=== PATIENT | male | born 1935 | race Caucasian/White ===

== ENCOUNTER 2021-04-17 13:11 | Inpatient (IN) | payer MEDICARE, MEDICAID ==
[~2021-04-17] VITALS: Ht 175.3 cm; Wt 100.3 kg
[2021-04-17] MEDS ORDERED: ASPI-630 PO (13:36)
[2021-04-17] MEDS ORDERED: LEVO75TA5 PO (13:36)
[2021-04-17] MEDS ORDERED: PANT40TA6 PO (13:36)
[2021-04-17] MEDS ORDERED: dexamethasone EACHEYE (13:36)
[2021-04-17] MEDS ORDERED: DONE10TA7 PO (13:36)
[2021-04-17] MEDS ORDERED: SPIR25TA5 PO (13:36)
[2021-04-17] MEDS ORDERED: MULT-245 PO (13:36)
[2021-04-17] MEDS ORDERED: ALLO100T PO (13:36)
[2021-04-17] MEDS ORDERED: MIRA25TA PO (13:36)
[2021-04-17] MEDS ORDERED: FINA5TAB4 PO (13:36)
[2021-04-17] MEDS ORDERED: CYAN500T17 PO (13:36)
[2021-04-17] MEDS ORDERED: ATORVASTATIN CA80 MG PO (13:36)
[2021-04-17] MEDS ORDERED: OMEG10005 PO (13:36)
[2021-04-17] MEDS ORDERED: MEMA10TA PO (13:36)
[2021-04-17] MEDS ORDERED: BENA40TA74 PO (13:36)
[2021-04-17] MEDS ORDERED: GABA800T5 PO (13:36)
[2021-04-17] MEDS ORDERED: TORS20TA2 PO (13:36)
[2021-04-17] MEDS ORDERED: QUET25TA5 PO (13:36)
[2021-04-17] MEDS ORDERED: METHYL SALICYLATE/MENTHOL TOPICAL OINTMENT 57GM TUBE. TP PRN (14:00)
[2021-04-17 14:13] VITALS: BP 160/80
[2021-04-17] MEDS ORDERED: WARF-31 PO (14:28)
[2021-04-17] MEDS ORDERED: WARF7.5T45 PO ×2 (14:28→14:34)
[2021-04-17] MEDS: GABAPENTIN 400 MG CAPSULE. PO SCH ×2 (14:30→20:28)
[2021-04-17 15:28] VITALS: BP 128/65
[2021-04-17 20:17] LABS: BASO # 0.1 x10^3/uL (0.0-0.2); BASO % 1 % (0-3); EOS # 0.3 x10^3/uL (0.0-0.7); EOS % 6 % (0-3); HEMATOCRIT 39.4 % (39.0-53.0); LYMPH # 1.6 x10^3/uL (1.0-4.8); LYMPH % 28 % (24-48); MEAN CORPUSCULAR HEMOGLOBIN 31 pg (25-35); MEAN CORPUSCULAR HGB CONC 33 g/dL (31-37); MEAN CORPUSCULAR VOLUME 93 fL (79-100); MONO # 0.6 x10^3/uL (0.0-1.1); MONO % 10 % (0-9); NEUT # 3.3 x10^3uL (1.8-7.7); NEUT % 56 % (31-73); PLATELET COUNT 168 x10^3/uL (140-400); RED BLOOD COUNT 4.25 x10^6/uL (4.30-5.70); RED CELL DISTRIBUTION WIDTH 16.7 % (11.5-14.5); WHITE BLOOD COUNT 5.9 x10^3/uL (4.0-11.0)
[2021-04-17] MEDS: QUEtiapine 25 MG TABLET. PO SCH (20:28)
[2021-04-17] MEDS: DONEPEZIL HCL 10 MG TABLET PO SCH (20:28)
[2021-04-17] MEDS: MEMANTINE 10 MG TABLET. PO SCH (20:28)
[2021-04-17] MEDS: ALLOPURINOL 100 MG TABLET. PO SCH (20:28)
[2021-04-17] MEDS: ATORVASTATIN CALCIUM 20 MG TABLET PO SCH (20:29)
[2021-04-17] MEDS: DEXAMETHASONE 0.1% OPHTH SOLUTION 5ML BOTTLE. OU SCH (20:29)
[2021-04-17 20:32] LABS: ALBUMIN 3.4 g/dL (3.4-5.0); ALBUMIN/GLOBULIN RATIO 0.9 (1.0-1.7); CALCIUM 8.7 mg/dL (8.5-10.1); CREATININE 1.5 mg/dL (0.7-1.3); GFR 44.6; MAGNESIUM 2.6 mg/dL (1.8-2.4); TOTAL BILIRUBIN 0.6 mg/dL (0.2-1.0); TOTAL PROTEIN 7.3 g/dL (6.4-8.2)
--- NOTE | 2021-04-17 21:08 | PDOC ---
Exam Note: Brennen Note: Please also refer to the separate dictated note~for this date of service dictated separately.~Patient seen individually. Discussed the patient with Nursing staff reviewed the chart.~Reviewed interim history and current functioning. Reviewed vital signs,~Labs/ Radiology~and current medications noted below. Continue current treatment with the changes noted in the dictated addendum note Assessment: Vital Signs/I&O: Vital Signs Date Time Temp Pulse Resp B/P (MAP) Pulse Ox O2 Delivery O2 Flow Rate FiO2 04/17/21 15:28 98.5 67 20 128/65 (86) 92 Labs: Laboratory Tests Test 04/17/21 20:10 White Blood Count 5.9 x10^3/uL (4.0-11.0) Red Blood Count 4.25 x10^6/uL (4.30-5.70) L Hemoglobin 13.0 g/dL (13.0-17.5) Hematocrit 39.4 % (39.0-53.0) Mean Corpuscular Volume 93 fL (79-100) Mean Corpuscular Hemoglobin 31 pg (25-35) Mean Corpuscular Hemoglobin Concent 33 g/dL (31-37) Red Cell Distribution Width 16.7 % (11.5-14.5) H Platelet Count 168 x10^3/uL (140-400) Neutrophils (%) (Auto) 56 % (31-73) Lymphocytes (%) (Auto) 28 % (24-48) Monocytes (%) (Auto) 10 % (0-9) H Eosinophils (%) (Auto) 6 % (0-3) H Basophils (%) (Auto) 1 % (0-3) Neutrophils # (Auto) 3.3 x10^3uL (1.8-7.7) Lymphocytes # (Auto) 1.6 x10^3/uL (1.0-4.8) Monocytes # (Auto) 0.6 x10^3/uL (0.0-1.1) Eosinophils # (Auto) 0.3 x10^3/uL (0.0-0.7) Basophils # (Auto) 0.1 x10^3/uL (0.0-0.2) Activated Partial Thromboplast Time 29 SEC (23-33) D-Dimer (Violeta) 0.33 mg/L (0.00-0.50) Sodium Level 142 mmol/L (136-145) Potassium Level 4.0 mmol/L (3.5-5.1) Chloride Level 107 mmol/L (98-107) Carbon Dioxide Level 27 mmol/L (21-32) Anion Gap 8 (6-14) Blood Urea Nitrogen 31 mg/dL (8-26) H Creatinine 1.5 mg/dL (0.7-1.3) H Estimated GFR (Cockcroft-Gault) 44.6 BUN/Creatinine Ratio 21 (6-20) H Glucose Level 150 mg/dL (70-99) H Calcium Level 8.7 mg/dL (8.5-10.1) Magnesium Level 2.6 mg/dL (1.8-2.4) H Total Bilirubin 0.6 mg/dL (0.2-1.0) Aspartate Amino Transferase (AST) 21 U/L (15-37) Alanine Aminotransferase (ALT) 22 U/L (16-63) Alkaline Phosphatase 106 U/L (46-116) Total Protein 7.3 g/dL (6.4-8.2) Albumin 3.4 g/dL (3.4-5.0) Albumin/Globulin Ratio 0.9 (1.0-1.7) L Current Medications: Meds: Current Medications Medications (Trade) Dose Ordered Sig/Mary Route PRN Reason Start Time Stop Time Status Last Admin Dose Admin Allopurinol (Zyloprim) 100 mg BID PO 04/17/21 21:00 04/17/21 20:28 Donepezil HCl (Aricept) 10 mg HS PO 04/17/21 21:00 04/17/21 20:28 Memantine (Namenda) 10 mg BID PO 04/17/21 21:00 04/17/21 20:28 Quetiapine Fumarate (SEROquel) 25 mg BID PO 04/17/21 21:00 04/17/21 20:28 Atorvastatin Calcium (Lipitor) 80 mg QHS PO 04/17/21 21:00 04/17/21 20:29 Gabapentin (Neurontin) 400 mg TID PO 04/17/21 14:30 04/17/21 20:28 I have reviewed the current psychotropics carefully including drug interactions. Risk benefit ratio favors no change other than as noted in my dictated progress note. JAE HERNANDEZ MD Apr 17, 2021 21:08
[2021-04-17 22:03] LABS: BILIRUBIN,URINE NEG (NEG); CLARITY,URINE CLEAR; COLOR,URINE YELLOW; GLUCOSE,URINE NEG (NEG); NITRITE,URINE NEG (NEG); RBC,URINE 0 /HPF (0-2); UROBILINOGEN,URINE 0.2 mg/dL (0.2 mg/dL)
[2021-04-17 22:04] LABS: BACTERIA,URINE 0 /HPF (0-FEW); SQUAMOUS EPITHELIAL CELL,UR OCC /LPF; WBC,URINE 0 /HPF (0-4)
--- NOTE | 2021-04-17 22:08 | HP ---
DATE OF SERVICE: 04/17/2021 ADMIT DATE: 04/17/2021 PSYCHIATRIC ADMISSION HISTORY AND EVALUATION The patient was seen in the evening of 04/17 for this evaluation. IDENTIFYING DATA: The patient is an 85-year-old male referred to us from [facility] Room where he presented from home. The patient has been getting increasingly confused, spitting on the floor, and at other people. He was combative with cares and had not slept in many days. He was disruptive, difficult to redirect, agitated, had failed outpatient psychiatric interventions resulting in this referral. CHIEF COMPLAINT: "I have been here many days". In fact, I saw the patient shortly after he was admitted. HISTORY OF PRESENT ILLNESS: The patient has a history of dementia, Alzheimer's, vascular type. He has been residing at home with family, recently getting more confused, paranoid, psychotic, and agitated. He has had sleep and appetite changes and has been progressive increasingly combative. No active suicidal or homicidal ideation. PAST PSYCHIATRIC HISTORY: As above. MEDICAL HISTORY: GERD, hypertension, urinary retention, hard of hearing, hypothyroidism, gout. ACCU-CHEKS: None. CODE STATUS: DNR. ALLERGIES: NIASPAN. DIET: Cardiac, takes medications whole. Ambulates in wheelchair. CURRENT PSYCHOTROPICS: Seroquel 25 mg b.i.d., Aricept 10 mg at bedtime, gabapentin 400 mg t.i.d., Namenda 10 mg b.i.d., Zyprexa p.r.n. FAMILY HISTORY: Noncontributory. SOCIAL HISTORY: The patient lives at home with family. No alcohol, drug abuse, physical, sexual, or elder abuse history is noted. He is not known to be a perpetrator. 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 REVIEW OF SYSTEMS: Hard of hearing, impaired ambulation in wheelchair. No CV, , pulmonary, eye system symptoms on review. MENTAL STATUS EXAM: The patient is oriented to himself. Insight, judgment, recent, remote memory, attention, concentration, fund of knowledge poor consistent with his diagnosis. IMPRESSION: Major neurocognitive disorder, Alzheimer, vascular with delusion, depression, behavioral disturbance, anxiety disorder, unspecified; impulse control disorder, unspecified. Rest unchanged from above. PLAN: Admit to Geropsychiatry unit at [facility]. I will see the patient daily individually from a psychiatric standpoint. Medical followup with Dr. Olson/Dr. Dotson. Continue the patient on his current psychotropics. Observe baseline. Adjust psychotropics as clinically indicated and make a determination if he will need a higher level of care rather than returning home. ESTIMATED LENGTH OF STAY: 10-12 days. DISPOSITION PLANS: As noted above, either home or higher level of care. ANGLE DR: Melinda TID: [id number]
[2021-04-18] MEDS: LEVOTHYROXINE 75 MCG TABLET PO SCH (05:06)
--- NOTE | 2021-04-18 05:52 | EKG ---
[address] [address] Test Date: 2021-04-18 Test Time: 05:35:45 Pat Name: DEYVI BERGER Department: Room: [address] [place] [address] Gender: M Hop Grower: : 1935 Requested By: JAE HERNANDEZ Order Number: [id number] Reading MD: Nilesh Arevalo MD Measurements Intervals [place] Rate: 50 P: 22 CA: 340 QRS: -9 QRSD: 104 T: 112 QT: 438 QTc: 402 Interpretive Statements SINUS RHYTHM PROLONGED CA INTERVAL CONSIDER SINOATRIAL EXIT BLOCK VERSUS MOBITZ TYPE 1 Electronically Signed On 04-27-2021 15:52:05 CONCRETE PRECAST MOULDER by Nilesh Arevalo MD
[2021-04-18 06:03] VITALS: BP 148/84
[2021-04-18] MEDS: GABAPENTIN 400 MG CAPSULE. PO SCH ×3 (08:36→20:12)
[2021-04-18] MEDS: MEMANTINE 10 MG TABLET. PO SCH ×2 (08:36→20:13)
[2021-04-18] MEDS: QUEtiapine 25 MG TABLET. PO SCH ×2 (08:36→20:12)
[2021-04-18] MEDS: ALLOPURINOL 100 MG TABLET. PO SCH ×2 (08:36→20:12)
[2021-04-18] MEDS: TORSEMIDE 20 MG TABLET. PO SCH (08:40)
[2021-04-18] MEDS: PANTOPRAZOLE 40 MG TABLET. PO SCH (08:40)
[2021-04-18] MEDS: SPIRONOLACTONE 25 MG TABLET PO SCH (08:40)
[2021-04-18] MEDS: OMEGA-3 FATTY ACIDS/FISH OIL 1,000 MG CAPSULE. PO SCH (08:40)
[2021-04-18] MEDS: MULTIVITAMIN with MINERAL TABLET. PO SCH (08:41)
[2021-04-18] MEDS: LISINOPRIL 20 MG TABLET PO SCH (08:41)
[2021-04-18] MEDS: OLANZapine 2.5 MG TABLET PO PRN ×2 (08:41→12:27)
[2021-04-18] MEDS: ASPIRIN CHEWABLE 81 MG TABLET. PO SCH (08:41)
[2021-04-18] MEDS: FINASTERIDE 5 MG TABLET. PO SCH (08:41)
[2021-04-18] MEDS: MIRABEGRON 25 MG TAB.ER.24H PO SCH (08:45)
[2021-04-18] MEDS: DEXAMETHASONE 0.1% OPHTH SOLUTION 5ML BOTTLE. OU SCH ×2 (08:45→20:11)
[2021-04-18] MEDS ORDERED: FLU VACC QUAD 21-22 (6MOS+) PF 0.5 ML SYRINGE. VAX IM ONE (09:00)
[2021-04-18] MEDS: QUEtiapine 25 MG TABLET. PO PRN ×2 (10:49→17:30)
[2021-04-18 11:36] LABS: THYROID STIM HORMONE (TSH) 2.763 uIU/mL (0.358-3.740)
[2021-04-18] MEDS: CYANOCOBALAMIN (VITAMIN B-12) 1,000 MCG TABLET. PO SCH (12:00)
[2021-04-18 15:13] VITALS: BP 114/68
[2021-04-18] MEDS ORDERED: WARFARIN 7.5 MG TABLET. PO SCH (16:00)
[2021-04-18] MEDS: DONEPEZIL HCL 10 MG TABLET PO SCH (20:12)
[2021-04-18] MEDS: ATORVASTATIN CALCIUM 20 MG TABLET PO SCH (20:13)
--- NOTE | 2021-04-18 23:50 | CONS ---
DATE OF CONSULTATION: 04/18/2021 REASON FOR CONSULTATION: Medical management. HISTORY OF PRESENT ILLNESS: The patient is an 85-year-old male patient who apparently lives at home and was evaluated at [facility] and apparently he was admitted to this facility as he has been spitting on the floor and at people, combative with cares, has not slept in days; all this in a background of dementia with behavioral disorder. PAST MEDICAL HISTORY: Significant for gastroesophageal reflux disease, hypertension, urinary retention, gout, coronary artery disease x4, hypothyroidism. PAST SURGICAL HISTORY: Significant for cholecystectomy and appendectomy. ALLERGIES: HE IS ALLERGIC TO NIACIN. MEDICATIONS: He is currently on the following medication: He is on Aricept 10 mg at bedtime, Coumadin 5 mg Tuesday, Tuesday, Tuesday and Coumadin 7.5 mg on Tuesday, Tuesday, as well as Tuesday, omega 3 fatty acid 1000 mg once a day, benazepril 40 mg daily, spironolactone 25 mg every 48 hours, aspirin 81 mg once a day, gabapentin 400 mg 3 times a day, quetiapine fumarate 25 mg twice a day, Namenda 10 mg twice a day, torsemide 40 mg daily, Protonix 40 mg daily, levothyroxine sodium 75 mcg once a day, Myrbetriq 25 mg daily, vitamin B12 1000 mcg daily, multivitamin 1 tablet once a day, finasteride 5 mg daily, allopurinol 100 mg twice a day, atorvastatin calcium 80 mg at bedtime, and dexamethasone eyedrops 1 drop to both eyes twice a day. FAMILY HISTORY: Noncontributory. SOCIAL HISTORY: He is . Apparently lives with his . He does not smoke, drink alcohol, or use recreational drugs. 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 REVIEW OF SYSTEMS: The patient apparently is hard of hearing, has impaired ambulation, is mostly wheelchair bound. PHYSICAL EXAMINATION: GENERAL: When I saw him this afternoon, he was sitting comfortably in his wheelchair in no apparent respiratory distress. No pallor, jaundice, cyanosis or thyromegaly. No jugular venous distention. No limb edema. VITAL SIGNS: Heart rate was 66, blood pressure is 114/68, temperature 97.4, respiratory rate 20, and oxygen saturation was 94%. HEAD, EYES, EARS, NOSE, AND THROAT: Normocephalic, atraumatic. NECK: Supple. HEART: Normal first and second heart sounds. No gallop, rub or murmur. CHEST: Clear to auscultation, no crepitation or rhonchi. ABDOMEN: Distended. Soft, nontender. NEUROLOGIC: He is very hard of hearing, otherwise all other cranial nerves intact. He moves upper extremities much greater than lower extremities, mostly wheelchair bound. He apparently was able to walk with a walker with standby assist. LABORATORY DATA: On admission showed a white cell count 5900, hemoglobin 13, hematocrit 39, MCV 93, and platelet count of 168,000. His prothrombin time was 15. INR 1.5. Serum sodium was 142, potassium 4, chloride 107, bicarbonate 27, anion gap of 8, BUN 31, creatinine 1.5. Estimated GFR was 44 mL per minute. His glucose 150, calcium was 8.7, magnesium was 2.6. Total bilirubin, AST, ALT, alkaline phosphatase were normal. Total protein 7.3, albumin was 3.4. His serum iron was 88. TIBC was 316 and iron saturation was 28. His serum triglycerides were 268. Total cholesterol 153, LDL was 64, VLDL was 53, HDL cholesterol was 36 and the ratio was 4. TSH was 2.76. His D-dimer was 0.33 and aPTT was 29. Urinalysis essentially unremarkable. ASSESSMENT AND PLAN: In summary, this is an 85-year-old male patient who was referred from [facility] where he presented from home. The patient has been getting increasingly confused, spitting on the floor and on other peoples. He is combative with cares and has not slept in many days. He was disruptive and difficult to redirect, agitated, had failed outpatient psychiatric intervention. Therefore, he was [facility] for inpatient psychiatric stabilization. Medically, he has multiple medical problems including hypertension, urinary retention and probably benign prostatic hypertrophy, sensorineural deafness, hypothyroidism, and gout. He is on Coumadin, however, it was not clear to me as to why he is on Coumadin, whether he has a DVT of atrial fibrillation. In any case, he was in a very difficult Coumadin regimen that need to be simplified and waiting the pharmacy adjusting his dose; however, medically generally, he seemed to be stable. His vital signs are stable and all his lab works are within acceptable range. My plan is to follow with his lab works that are still pending at the time of this dictation and make any necessary recommendation. Thank you, Dr. Cortes, for allowing me to participate in the care of this patient. MAXIMILIANO/KAYLEY DR: Jomar TID: [id number]
[2021-04-19] MEDS: OLANZapine 2.5 MG TABLET PO PRN ×3 (01:33→12:15)
[2021-04-19] MEDS: QUEtiapine 25 MG TABLET. PO PRN (01:33)
[2021-04-19] MEDS: LEVOTHYROXINE 75 MCG TABLET PO SCH (05:07)
[2021-04-19 05:30] VITALS: BP 114/66
[2021-04-19 05:43] LABS: THYROXINE 5.9 ug/dL (4.5-12.0)
[2021-04-19] MEDS: MAG HYDROX/AL HYDROX/SIMETH 30 ML ORAL.SUSP PO PRN (06:45)
[2021-04-19 07:09] LABS: HEMOGLOBIN A1C 6.5 % (4.8-5.6)
[2021-04-19] MEDS: OMEGA-3 FATTY ACIDS/FISH OIL 1,000 MG CAPSULE. PO SCH (08:54)
[2021-04-19] MEDS: DEXAMETHASONE 0.1% OPHTH SOLUTION 5ML BOTTLE. OU SCH ×2 (08:54→19:47)
[2021-04-19] MEDS: MIRABEGRON 25 MG TAB.ER.24H PO SCH (08:57)
[2021-04-19] MEDS: ALLOPURINOL 100 MG TABLET. PO SCH ×2 (08:57→19:48)
[2021-04-19] MEDS: PANTOPRAZOLE 40 MG TABLET. PO SCH (08:57)
[2021-04-19] MEDS: MULTIVITAMIN with MINERAL TABLET. PO SCH (08:57)
[2021-04-19] MEDS: FINASTERIDE 5 MG TABLET. PO SCH (08:58)
[2021-04-19] MEDS: LISINOPRIL 20 MG TABLET PO SCH (08:58)
[2021-04-19] MEDS: TORSEMIDE 20 MG TABLET. PO SCH (08:59)
[2021-04-19] MEDS: ASPIRIN CHEWABLE 81 MG TABLET. PO SCH (08:59)
[2021-04-19] MEDS: QUEtiapine 25 MG TABLET. PO SCH ×3 (08:59→19:50)
[2021-04-19] MEDS: MEMANTINE 10 MG TABLET. PO SCH ×2 (08:59→19:48)
[2021-04-19] MEDS: GABAPENTIN 400 MG CAPSULE. PO SCH ×3 (08:59→19:50)
[2021-04-19] MEDS: CYANOCOBALAMIN (VITAMIN B-12) 1,000 MCG TABLET. PO SCH (12:15)
--- NOTE | 2021-04-19 12:44 | PN ---
DATE: 04/18/2021 SUBJECTIVE: The patient was seen today, met with the staff. Chart was reviewed and also covering for Dr. Cortes. The patient since admission has been having problems with his cognition, confused, fluctuating sensorium at times. The patient recently had a fall, apparently has a bruise on his left side of the face. The patient is struggling to provide much information. He is able to hold a conversation, but could not answer most of the questions, admits he has been having problems with memory and having difficulty with recall, but he remembers some of the things from the past. According to the family, he was fairly high functioning until recently. The patient's CT scan of head reviewed. We will request for Neurology consult. OBSERVATION: Vital signs stable. The patient's appetite improved and the patient is currently on wheelchair, unsteady on his gait. LABORATORY DATA: The patient's lab reviewed. The patient's hematology was within normal range. The patient's BUN 31, creatinine was 1.5. BUN and creatinine ratio 21, triglycerides 268, non HDL 117, HDL cholesterol 36. The patient's urinalysis was negative. CURRENT MEDICATIONS: Include Seroquel 25 mg q. 6 hours p.r.n. and 25 mg twice a day and Namenda 10 mg b.i.d., Aricept 10 mg at night, gabapentin 400 mg t.i.d. PLAN: The patient will be evaluated because of cognitive deficits, recent onset. The patient will continue on his current medication. LENGTH OF STAY: Seven to ten days. KAYLEEN/NEETU/JARRELL DR: Evelin TID: [id number] MTDD
--- NOTE | 2021-04-19 14:23 | RAD ---
EXAM: Chest, single view. HISTORY: Cough. COMPARISON: None. FINDINGS: A frontal view of the chest is obtained. There is bilateral lower lobe interstitial infiltr ate. There is no consolidation. There are suspected small pleural effusions. There is no pneumothorax . There is a prominent cardiac silhouette. IMPRESSION: Suspected bilateral lower lobe interstitial infiltrate with small pleural effusions. Electronically signed by: Araceli Garces MD (04/19/2021 2:20 PM) [id number]
[2021-04-19 15:39] VITALS: BP 108/61
[2021-04-19] MEDS: WARFARIN 7.5 MG TABLET. PO SCH (16:03)
[2021-04-19] MEDS: ATORVASTATIN CALCIUM 20 MG TABLET PO SCH (19:48)
[2021-04-19] MEDS: DONEPEZIL HCL 10 MG TABLET PO SCH (19:48)
--- NOTE | 2021-04-19 21:25 | PN ---
DATE: 04/19/2021 SUBJECTIVE: The patient was seen today, met with the staff. Chart reviewed. Also, covering for Dr. Cortes. Staff reports increased confusion, mood swings, increased agitation, verbally abusive towards staff, and exhibiting poor impulse control, and low frustration tolerance. VITAL SIGNS: Temperature 97.3, blood pressure 114/66, pulse 77, respirations 20, O2 sat 92%. GENERAL: Slept about 4 hours last night. The patient's appetite decreased. LABORATORY DATA: The patient's lab reviewed. CURRENT MEDICATIONS: The patient's current medications include Seroquel 25 mg 4 times a day. Apparently, it was increased from twice a day because of increased behavior problems, Seroquel 25 mg q. 6 hours p.r.n., Namenda 10 mg twice a day, Aricept 10 mg at night, gabapentin 400 mg 3 times a day. He is also on olanzapine 2.5 mg q. 2 hours p.r.n. ASSESSMENT: Major neurocognitive disorder, most likely Alzheimer's versus vascular with behavior problems. PLAN: Continue with the current treatment plan. LENGTH OF STAY: 7-[address]: Evelin TID: [id number]
[2021-04-20] MEDS: LEVOTHYROXINE 75 MCG TABLET PO SCH (04:50)
[2021-04-20 05:52] VITALS: BP 98/61
[2021-04-20] MEDS: LISINOPRIL 20 MG TABLET PO SCH (09:00)
[2021-04-20] MEDS: FINASTERIDE 5 MG TABLET. PO SCH (09:08)
[2021-04-20] MEDS: QUEtiapine 25 MG TABLET. PO SCH ×4 (09:08→20:09)
[2021-04-20] MEDS: MEMANTINE 10 MG TABLET. PO SCH ×2 (09:09→20:09)
[2021-04-20] MEDS: OMEGA-3 FATTY ACIDS/FISH OIL 1,000 MG CAPSULE. PO SCH (09:09)
[2021-04-20] MEDS: GABAPENTIN 400 MG CAPSULE. PO SCH ×3 (09:09→20:09)
[2021-04-20] MEDS: SPIRONOLACTONE 25 MG TABLET PO SCH (09:09)
[2021-04-20] MEDS: PANTOPRAZOLE 40 MG TABLET. PO SCH (09:09)
[2021-04-20] MEDS: MULTIVITAMIN with MINERAL TABLET. PO SCH (09:09)
[2021-04-20] MEDS: ASPIRIN CHEWABLE 81 MG TABLET. PO SCH (09:09)
[2021-04-20] MEDS: ALLOPURINOL 100 MG TABLET. PO SCH ×2 (09:09→20:09)
[2021-04-20] MEDS: TORSEMIDE 20 MG TABLET. PO SCH (09:09)
[2021-04-20] MEDS: DEXAMETHASONE 0.1% OPHTH SOLUTION 5ML BOTTLE. OU SCH ×2 (09:10→20:10)
[2021-04-20] MEDS: MIRABEGRON 25 MG TAB.ER.24H PO SCH (09:10)
[2021-04-20] MEDS: CYANOCOBALAMIN (VITAMIN B-12) 1,000 MCG TABLET. PO SCH (12:51)
[2021-04-20] MEDS: OLANZapine 2.5 MG TABLET PO PRN (14:25)
[2021-04-20 15:36] VITALS: BP 104/78
[2021-04-20] MEDS ORDERED: WARFARIN 5 MG TABLET. PO SCH (16:00)
[2021-04-20] MEDS: ATORVASTATIN CALCIUM 20 MG TABLET PO SCH (20:08)
[2021-04-20] MEDS: DONEPEZIL HCL 10 MG TABLET PO SCH (20:08)
--- NOTE | 2021-04-21 01:01 | PN ---
DATE: 04/20/2021 SUBJECTIVE: The patient was seen today, met with the staff, chart reviewed. The patient continues to show fluctuating behaviors. At times, he is very pleasant and able to interact with the staff. The patient, because of his cognitive deficits, gets confused and having problems with orienting himself to surroundings and has episodes of confusion, agitation, and angry outbursts. The patient also had a chest x-ray, which was unremarkable. CURRENT MEDICATIONS: The patient's medications reviewed. Currently on Seroquel 25 mg 4 times a day. Also, Seroquel 25 mg q. 6 hours p.r.n., Namenda 10 mg twice a day, Aricept 10 mg at night, gabapentin 400 mg 3 times a day. He is also on olanzapine 2.5 mg q. 2 hours p.r.n. LABORATORY DATA: The patient's lab reviewed. ASSESSMENT: Major neurocognitive disorder, most likely Alzheimer's versus vascular with behavior problems. PLAN: To continue with the treatment. LENGTH OF STAY: Seven to ten days. VANCE DR: Evelin TID: [id number]
[2021-04-21] MEDS: LEVOTHYROXINE 75 MCG TABLET PO SCH (05:37)
[2021-04-21 05:40] VITALS: BP 114/65
[2021-04-21] MEDS: OLANZapine 2.5 MG TABLET PO PRN ×4 (06:10→20:18)
[2021-04-21] MEDS: MAG HYDROX/AL HYDROX/SIMETH 30 ML ORAL.SUSP PO PRN (06:10)
[2021-04-21] MEDS: MIRABEGRON 25 MG TAB.ER.24H PO SCH (07:42)
[2021-04-21] MEDS: DEXAMETHASONE 0.1% OPHTH SOLUTION 5ML BOTTLE. OU SCH ×2 (07:43→20:15)
[2021-04-21] MEDS: TORSEMIDE 20 MG TABLET. PO SCH (07:43)
[2021-04-21] MEDS: FINASTERIDE 5 MG TABLET. PO SCH (07:43)
[2021-04-21] MEDS: QUEtiapine 25 MG TABLET. PO SCH ×4 (07:43→20:16)
[2021-04-21] MEDS: MEMANTINE 10 MG TABLET. PO SCH ×2 (07:43→20:16)
[2021-04-21] MEDS: OMEGA-3 FATTY ACIDS/FISH OIL 1,000 MG CAPSULE. PO SCH (07:43)
[2021-04-21] MEDS: ALLOPURINOL 100 MG TABLET. PO SCH ×2 (07:43→20:16)
[2021-04-21] MEDS: GABAPENTIN 400 MG CAPSULE. PO SCH ×3 (07:44→20:17)
[2021-04-21] MEDS: ASPIRIN CHEWABLE 81 MG TABLET. PO SCH (07:44)
[2021-04-21] MEDS: LISINOPRIL 20 MG TABLET PO SCH (07:44)
[2021-04-21] MEDS: MULTIVITAMIN with MINERAL TABLET. PO SCH (07:44)
[2021-04-21] MEDS: PANTOPRAZOLE 40 MG TABLET. PO SCH (07:44)
[2021-04-21] MEDS: CYANOCOBALAMIN (VITAMIN B-12) 1,000 MCG TABLET. PO SCH (11:59)
[2021-04-21 15:09] VITALS: BP 104/69
[2021-04-21] MEDS: WARFARIN 7.5 MG TABLET. PO SCH (16:42)
[2021-04-21] MEDS ORDERED: DEXTROSE 50% 25 GM / 50ML DISP.SYRIN. IV PRN (18:30)
[2021-04-21] MEDS: ATORVASTATIN CALCIUM 20 MG TABLET PO SCH (20:16)
[2021-04-21] MEDS: DONEPEZIL HCL 10 MG TABLET PO SCH (20:16)
[2021-04-21] MEDS: QUEtiapine 50 MG TABLET. PO SCH (20:18)
[2021-04-21] MEDS: traZODone 50 MG TABLET. PO PRN (20:18)
[2021-04-21] MEDS: DIVALPROEX 125 MG CAP.SPRINK PO SCH (20:18)
[2021-04-22] MEDS: LEVOTHYROXINE 75 MCG TABLET PO SCH (05:01)
[2021-04-22 06:06] VITALS: BP 99/62
[2021-04-22] MEDS: LISINOPRIL 20 MG TABLET PO SCH (08:27)
[2021-04-22] MEDS: ALLOPURINOL 100 MG TABLET. PO SCH ×2 (08:27→20:09)
[2021-04-22] MEDS: ASPIRIN CHEWABLE 81 MG TABLET. PO SCH (08:27)
[2021-04-22] MEDS: TORSEMIDE 20 MG TABLET. PO SCH (08:28)
[2021-04-22] MEDS: SPIRONOLACTONE 25 MG TABLET PO SCH (08:28)
[2021-04-22] MEDS: GABAPENTIN 400 MG CAPSULE. PO SCH ×3 (08:28→20:09)
[2021-04-22] MEDS: DIVALPROEX 125 MG CAP.SPRINK PO SCH ×2 (08:28→20:08)
[2021-04-22] MEDS: MULTIVITAMIN with MINERAL TABLET. PO SCH (08:28)
[2021-04-22] MEDS: OMEGA-3 FATTY ACIDS/FISH OIL 1,000 MG CAPSULE. PO SCH (08:28)
[2021-04-22] MEDS: MEMANTINE 10 MG TABLET. PO SCH ×2 (08:28→20:08)
[2021-04-22] MEDS: PANTOPRAZOLE 40 MG TABLET. PO SCH (08:28)
[2021-04-22] MEDS: FINASTERIDE 5 MG TABLET. PO SCH (08:28)
[2021-04-22] MEDS: QUEtiapine 25 MG TABLET. PO SCH ×2 (08:29→17:08)
[2021-04-22] MEDS: MIRABEGRON 25 MG TAB.ER.24H PO SCH (08:29)
[2021-04-22 08:36] VITALS: BP 124/72
[2021-04-22] MEDS: DEXAMETHASONE 0.1% OPHTH SOLUTION 5ML BOTTLE. OU SCH ×2 (09:00→20:08)
[2021-04-22] MEDS: OLANZapine 2.5 MG TABLET PO PRN ×2 (11:16→20:22)
[2021-04-22] MEDS: CYANOCOBALAMIN (VITAMIN B-12) 1,000 MCG TABLET. PO SCH (11:16)
--- NOTE | 2021-04-22 12:14 | TX PLAN ---
Interdisciplinary Tx Plan Admission Information Apr 17, 2021 at 13:11 Legal Status (on Admission): Voluntary DPOA/Guardian Name: Susan Scherer Contact Verified Code Status: DNR Allergies: Coded Allergies: niacin (Verified Allergy, Unknown, 04/17/21) Diagnoses Primary Diagnosis: Dementia with Behavioral Disturbances Reasons for Admission: Agitated, Sig. Change Sleep, Confusion/Disoriented, Poor impulse control Problem in Patient's Words: They overmedicated him and so my mother made the decision to bring him home, but under the circumstances, she cannot care for him any longer. Additional Admission Comments: According to the intake, pt was spitting on the floor and at others, agitated, resistive and combative during cares with staff, hasn't slept for days, yelling, cursing, name calling Problems Active Problems: agitated restless exit seeking yelling Inactive Problems: medication compliant Pt Strengths/Limitations Ability for [place]: Poor Cognitive Functioning/Ability: Fair Communication Skills/Ability: Fair Financial Resources: Good Insight/Judgement: Poor Intellectual Ability: Fair Physical Health: Fair Social Skills: Poor Stability in Family: Good Stability in School/Work: Poor Verbal Skills: Fair Discharge Criteria Discharge Criteria: Able meet basic life need, Adequate arrangements @DC, Improved behavior, Improved mood/thought Preliminary Discharge Plan Preliminary DC Plan: Placement Needed Special Precautions Fall Risk: Moderate Initial D/C Plan Pt to discharge to [facility] once stable Identified Discharge Needs: Referral to be resent to [facility] for re-admission. Currently Utilized Resources Currently Utilized Resources/P: PCP Referrals Community Resources: Referral to a higher level of care Identified Problems/Hx/Goals Objectives/Short-Term Goals Short Term Goals: Dec. Aggression, Dec. Outbursts, Improved Social Skills, Medication Stabilization, Monitor Med Effects Short Term Goals in Patient's: N/A Interventions/Frequency Staff Interventions/Frequency&: Psychiatrist to assess pt at least 3x per week for medication assessment. Social Work to assess pt at least 2x per week to identify barriers to care and discharge planning goals. Nurisng to assess medication effects, behavior modification and completion of 15 minute checks. Encourage participation in group activities (if applicable) or 1:1 engagement based of activity dept goals. History Vocational History: Pt worked over 44 years in [employer] with [employer]. 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 At that time, pt did retire and then worked at [employer] part-time for "something to do" until he was 81 and fully retired as his memory started failing. Education: Pt graduated high school (12th grade) Community Follow-up PCP Community Provider/Family Inpu: We just can't maintain him at home under the circumstances with my mother's broken ankle. Treatment Plan Explained Patient/Deicer Tester had this treatment plan explained to him/her as indicated by the signature below and has been given the opportunity to ask questions and make suggestions: Date: Patient/Deicer Tester Signature: Patient/Deicer Tester Decline: No (Pt dtr is very active in his care.) BALA MICHELLE Apr 22, 2021 12:14
[2021-04-22 15:34] VITALS: BP 97/62
[2021-04-22] MEDS: WARFARIN 7.5 MG TABLET. PO SCH (17:09)
[2021-04-22] MEDS: QUEtiapine 50 MG TABLET. PO SCH (20:08)
[2021-04-22] MEDS: ATORVASTATIN CALCIUM 20 MG TABLET PO SCH (20:09)
[2021-04-22] MEDS: DONEPEZIL HCL 10 MG TABLET PO SCH (20:09)
--- NOTE | 2021-04-23 01:57 | PN ---
DATE: 04/22/2021 SUBJECTIVE: The patient was seen today, met with the staff and chart reviewed. The patient's behavior continues to fluctuate. The patient recently was hitting the side door with his feet while he was on wheelchair. The patient apparently has explosive temper. The patient is also unable to deal with certain situations, difficult to comprehend. The patient also has significant hearing loss and also significant cognitive deficits. The patient has frequent episodes of angry outburst, increased confusion and also exit seeking behavior. OBSERVATION: VITAL SIGNS: Temperature 97.2, blood pressure 99/62, pulse 76, respirations 18, O2 sat 96%. GENERAL: Slept about 7 hours last night. MEDICATIONS: The patient has been taking his medications. Apparently, there have been medication change almost daily because of the patient's behavior problems. The patient currently on Seroquel 25 mg t.i.d. and 50 mg at night, Aricept 10 mg at night, gabapentin 400 mg t.i.d., Namenda 10 mg twice a day. He is also on Zyprexa 2.5 mg q. 2 hours p.r.n. and also Seroquel 25 mg q. 6 hours p.r.n. He is also on trazodone 50 mg at night. The patient also started on Depakote sprinkles 125 mg twice a day. The patient currently not having any side effects. LABORATORY DATA: The patient's lab reviewed. ASSESSMENT: Major neurocognitive disorder, most likely Alzheimer's versus vascular with behavior problems. PLAN: To continue with treatment. The patient's Depakote will be increased to 250 mg twice a day and patient will have a Depakote level done in 2 days. LENGTH OF STAY: Seven to ten days. NETTA/JARRELL DR: Evelin TID: [id number]
[2021-04-23 05:33] VITALS: BP 118/76
[2021-04-23] MEDS: LEVOTHYROXINE 75 MCG TABLET PO SCH (05:33)
[2021-04-23] MEDS: OMEGA-3 FATTY ACIDS/FISH OIL 1,000 MG CAPSULE. PO SCH (09:00)
[2021-04-23] MEDS: MULTIVITAMIN with MINERAL TABLET. PO SCH (09:00)
[2021-04-23] MEDS: DEXAMETHASONE 0.1% OPHTH SOLUTION 5ML BOTTLE. OU SCH ×2 (09:00→19:47)
[2021-04-23] MEDS: PANTOPRAZOLE 40 MG TABLET. PO SCH (09:00)
[2021-04-23] MEDS: ASPIRIN CHEWABLE 81 MG TABLET. PO SCH (09:50)
[2021-04-23] MEDS: LISINOPRIL 20 MG TABLET PO SCH (09:50)
[2021-04-23] MEDS: ALLOPURINOL 100 MG TABLET. PO SCH ×2 (09:51→19:48)
[2021-04-23] MEDS: FINASTERIDE 5 MG TABLET. PO SCH (09:51)
[2021-04-23] MEDS: QUEtiapine 25 MG TABLET. PO SCH ×3 (09:51→16:47)
[2021-04-23] MEDS: MIRABEGRON 25 MG TAB.ER.24H PO SCH (09:51)
[2021-04-23] MEDS: TORSEMIDE 20 MG TABLET. PO SCH (09:51)
[2021-04-23] MEDS: MEMANTINE 10 MG TABLET. PO SCH ×2 (09:51→19:48)
[2021-04-23] MEDS: GABAPENTIN 400 MG CAPSULE. PO SCH ×3 (09:51→19:48)
[2021-04-23] MEDS: OLANZapine 2.5 MG TABLET PO PRN ×2 (09:51→12:49)
[2021-04-23] MEDS: DIVALPROEX 125 MG CAP.SPRINK PO SCH ×2 (09:52→19:47)
[2021-04-23] MEDS: CYANOCOBALAMIN (VITAMIN B-12) 1,000 MCG TABLET. PO SCH (12:22)
[2021-04-23] MEDS: WARFARIN 7.5 MG TABLET. PO SCH (16:47)
[2021-04-23] MEDS: DONEPEZIL HCL 10 MG TABLET PO SCH (19:47)
[2021-04-23] MEDS: traZODone 50 MG TABLET. PO PRN (19:47)
[2021-04-23] MEDS: ATORVASTATIN CALCIUM 20 MG TABLET PO SCH (19:48)
[2021-04-23] MEDS: QUEtiapine 50 MG TABLET. PO SCH (19:48)
--- NOTE | 2021-04-24 02:32 | PN ---
DATE: 04/23/2021 SUBJECTIVE: The patient was seen today, met with the staff. Chart was reviewed. Also covering for Dr. Cortes. The patient continues to be having behavior problems, demanding, constantly banging at the door, exit-seeking behaviors, verbally abusive towards the staff, so far not responding to any p.r.n. medications. The patient is under constant supervision because of the behavior problems. OBSERVATION: VITAL SIGNS: Stable. The patient's sleep fluctuates. GENERAL: The patient's appetite is fair. CURRENT MEDICATIONS: Includes Seroquel 25 mg 3 times a day and 50 mg at night, Aricept 10 mg at night, gabapentin 400 mg t.i.d., Namenda 10 mg twice a day. The patient was also on Zyprexa 2.5 mg q. 2 hours p.r.n., it is not responding well. The patient is also on Seroquel 25 mg q. 6 hours. So far, he has not received any p.r.n. of the Seroquel. The patient is also on trazodone 50 mg at night. He is also on Depakote 250 mg twice a day. He is not having any side effects to medications. LABORATORY DATA: The patient's lab reviewed. ASSESSMENT: Major neurocognitive disorder, most likely Alzheimer's versus vascular with behavior problems. PLAN: To continue with treatment. The patient will continue on the above medications and also start him on Seroquel 50 mg q. 6 hours p.r.n. and discontinue Zyprexa 2.5 mg q. 2 hours p.r.n. LENGTH OF STAY: Seven days. NETTA DR: Evelin TID: [id number]
[2021-04-24] MEDS: LEVOTHYROXINE 75 MCG TABLET PO SCH (05:18)
[2021-04-24 05:51] VITALS: BP 92/51
[2021-04-24] MEDS: ALLOPURINOL 100 MG TABLET. PO SCH ×2 (08:19→19:42)
[2021-04-24] MEDS: FINASTERIDE 5 MG TABLET. PO SCH (08:19)
[2021-04-24] MEDS: MIRABEGRON 25 MG TAB.ER.24H PO SCH (08:19)
[2021-04-24] MEDS: OMEGA-3 FATTY ACIDS/FISH OIL 1,000 MG CAPSULE. PO SCH (08:19)
[2021-04-24] MEDS: CYANOCOBALAMIN (VITAMIN B-12) 1,000 MCG TABLET. PO SCH (08:19)
[2021-04-24] MEDS: ASPIRIN CHEWABLE 81 MG TABLET. PO SCH (08:19)
[2021-04-24] MEDS: PANTOPRAZOLE 40 MG TABLET. PO SCH (08:19)
[2021-04-24] MEDS: TORSEMIDE 20 MG TABLET. PO SCH (08:20)
[2021-04-24] MEDS: SPIRONOLACTONE 25 MG TABLET PO SCH (08:20)
[2021-04-24] MEDS: QUEtiapine 25 MG TABLET. PO SCH ×3 (08:20→17:29)
[2021-04-24] MEDS: GABAPENTIN 400 MG CAPSULE. PO SCH ×3 (08:20→19:43)
[2021-04-24] MEDS: MEMANTINE 10 MG TABLET. PO SCH ×2 (08:20→19:42)
[2021-04-24] MEDS: MULTIVITAMIN with MINERAL TABLET. PO SCH (08:21)
[2021-04-24] MEDS: DIVALPROEX 125 MG CAP.SPRINK PO SCH ×2 (08:21→19:44)
[2021-04-24] MEDS: DEXAMETHASONE 0.1% OPHTH SOLUTION 5ML BOTTLE. OU SCH ×2 (08:21→19:42)
[2021-04-24] MEDS: LISINOPRIL 20 MG TABLET PO SCH (08:22)
--- NOTE | 2021-04-24 13:26 | PN ---
DATE: 04/24/2021 SUBJECTIVE: The patient was seen today, met with the staff, chart reviewed. Also covering for Dr. Cortes. The patient continues to have behavior problems, increased agitation, restlessness, currently on wheelchair and has been intrusive, attention seeking and also difficult to follow directions, confusion and also kicking the doors. The patient also has been physical towards staff during ADLs. OBSERVATION: VITAL SIGNS: Temperature 97.7, blood pressure 92/51, pulse 80, respirations 18, O2 sat 97%. Slept about 6 hours last night. LABORATORY DATA: Reviewed. CURRENT MEDICATIONS: Include Seroquel 50 mg q. 6 hours p.r.n., Depakote 250 mg twice a day, Seroquel 25 mg 3 times a day and 50 mg at night, trazodone 50 mg at night p.r.n., gabapentin 400 mg t.i.d. p.o. The patient is not having any side effects to medications. ASSESSMENT: Major neurocognitive disorder, most likely Alzheimer's versus vascular with behavior problems. PLAN: To continue with the current treatment plan. The patient will be monitored closely with regard to his medications and side effects. LENGTH OF STAY: Five days. INDU DR: Evelin TID: [id number]
[2021-04-24] MEDS: WARFARIN 7.5 MG TABLET. PO SCH (15:16)
[2021-04-24 15:42] VITALS: BP 157/68
[2021-04-24] MEDS: MAGNESIUM HYDROXIDE 2,400 MG/30 ML ORAL.SUSP. PO PRN (19:41)
[2021-04-24] MEDS: QUEtiapine 50 MG TABLET. PO SCH (19:42)
[2021-04-24] MEDS: ATORVASTATIN CALCIUM 20 MG TABLET PO SCH (19:43)
[2021-04-24] MEDS: DONEPEZIL HCL 10 MG TABLET PO SCH (19:43)
[2021-04-25] MEDS: LEVOTHYROXINE 75 MCG TABLET PO SCH (05:00)
[2021-04-25 05:52] VITALS: BP 149/83
[2021-04-25] MEDS: OMEGA-3 FATTY ACIDS/FISH OIL 1,000 MG CAPSULE. PO SCH (07:08)
[2021-04-25] MEDS: ALLOPURINOL 100 MG TABLET. PO SCH ×2 (08:04→19:51)
[2021-04-25] MEDS: FINASTERIDE 5 MG TABLET. PO SCH (08:04)
[2021-04-25] MEDS: QUEtiapine 25 MG TABLET. PO SCH ×3 (08:04→16:26)
[2021-04-25] MEDS: MEMANTINE 10 MG TABLET. PO SCH ×2 (08:04→19:52)
[2021-04-25] MEDS: GABAPENTIN 400 MG CAPSULE. PO SCH ×3 (08:04→19:52)
[2021-04-25] MEDS: MIRABEGRON 25 MG TAB.ER.24H PO SCH (08:04)
[2021-04-25] MEDS: DIVALPROEX 125 MG CAP.SPRINK PO SCH ×2 (08:04→19:52)
[2021-04-25] MEDS: MULTIVITAMIN with MINERAL TABLET. PO SCH (08:04)
[2021-04-25] MEDS: PANTOPRAZOLE 40 MG TABLET. PO SCH (08:05)
[2021-04-25] MEDS: LISINOPRIL 20 MG TABLET PO SCH (08:05)
[2021-04-25] MEDS: ASPIRIN CHEWABLE 81 MG TABLET. PO SCH (08:05)
[2021-04-25] MEDS: TORSEMIDE 20 MG TABLET. PO SCH (08:05)
[2021-04-25 08:24] LABS: BASO # 0.1 x10^3/uL (0.0-0.2); BASO % 1 % (0-3); EOS # 0.4 x10^3/uL (0.0-0.7); EOS % 6 % (0-3); HEMATOCRIT 38.6 % (39.0-53.0); HEMOGLOBIN 12.8 g/dL (13.0-17.5); LYMPH # 1.9 x10^3/uL (1.0-4.8); LYMPH % 30 % (24-48); MEAN CORPUSCULAR HEMOGLOBIN 31 pg (25-35); MEAN CORPUSCULAR HGB CONC 33 g/dL (31-37); MEAN CORPUSCULAR VOLUME 95 fL (79-100); MONO # 0.8 x10^3/uL (0.0-1.1); MONO % 13 % (0-9); NEUT # 3.2 x10^3uL (1.8-7.7); NEUT % 51 % (31-73); PLATELET COUNT 162 x10^3/uL (140-400); RED BLOOD COUNT 4.08 x10^6/uL (4.30-5.70); RED CELL DISTRIBUTION WIDTH 16.8 % (11.5-14.5); WHITE BLOOD COUNT 6.3 x10^3/uL (4.0-11.0)
[2021-04-25] MEDS: DEXAMETHASONE 0.1% OPHTH SOLUTION 5ML BOTTLE. OU SCH ×2 (08:40→19:50)
[2021-04-25 08:57] LABS: ALBUMIN 3.1 g/dL (3.4-5.0); ALBUMIN/GLOBULIN RATIO 0.8 (1.0-1.7); ALK PHOS 105 U/L (46-116); ALT (SGPT) 22 U/L (16-63); ANION GAP 9 (6-14); AST (SGOT) 20 U/L (15-37); BLOOD UREA NITROGEN 49 mg/dL (8-26); BUN/CREATININE RATIO 22 (6-20); CALCIUM 8.8 mg/dL (8.5-10.1); CARBON DIOXIDE 26 mmol/L (21-32); CHLORIDE 110 mmol/L (98-107); CREATININE 2.2 mg/dL (0.7-1.3); GFR 28.7; GLUCOSE 95 mg/dL (70-99); SODIUM 145 mmol/L (136-145); TOTAL BILIRUBIN 0.3 mg/dL (0.2-1.0); TOTAL PROTEIN 6.8 g/dL (6.4-8.2)
[2021-04-25 09:04] LABS: VAL ACID 28 mcg/mL (50-100)
[2021-04-25] MEDS: CYANOCOBALAMIN (VITAMIN B-12) 1,000 MCG TABLET. PO SCH (11:34)
[2021-04-25 15:38] VITALS: BP 111/63
[2021-04-25] MEDS: DONEPEZIL HCL 10 MG TABLET PO SCH (19:51)
[2021-04-25] MEDS: QUEtiapine 50 MG TABLET. PO SCH (19:51)
[2021-04-25] MEDS: ATORVASTATIN CALCIUM 20 MG TABLET PO SCH (19:52)
--- NOTE | 2021-04-25 21:16 | PN ---
DATE: 04/25/2021 SUBJECTIVE: The patient was seen today, met with the staff. Chart was reviewed and covering for Dr. Cortes. Staff reports some improvement. Still confused, disorganized with his thinking. He is medication compliant. The patient also has episodic behaviors where he will become very agitated, yelling out, aggressive and also pacing on the hallway. The patient has not shown any major physical aggression today. OBSERVATION: VITAL SIGNS: Temperature 97.5, blood pressure 149/83, pulse 69, respirations 20, O2 sat 96%. Slept about 6-1/2 hours last night. GENERAL: The patient's appetite improved. CURRENT MEDICATIONS: Include Seroquel 50 mg q. 6 hours p.r.n., Depakote Sprinkles 250 mg twice a day, Seroquel 50 mg at night, Seroquel 25 mg t.i.d., trazodone 50 mg at night p.r.n., Namenda 10 mg twice a day, Aricept 10 mg at night and gabapentin 400 mg 3 times a day. The patient is not having any side effects to the medications. LABORATORY DATA: The patient's lab reviewed. The patient's hemoglobin 12.8, HCT 38.6. The patient's BUN was 49, creatinine 2.2, BUN 22. The patient is currently not having any side effects to medications. ASSESSMENT: Major neurocognitive disorder, most likely Alzheimer's versus vascular with behavior problems. PLAN: Continue with treatment. LENGTH OF STAY: Five days. NETTA DR: Evelin TID: [id number]
[2021-04-26] MEDS ORDERED: NYSTATIN TOPICAL POWDER 15GM BOTTLE. TP PRN (03:00)
[2021-04-26 05:42] VITALS: BP 146/75
[2021-04-26] MEDS: LEVOTHYROXINE 75 MCG TABLET PO SCH (05:45)
[2021-04-26] MEDS: OMEGA-3 FATTY ACIDS/FISH OIL 1,000 MG CAPSULE. PO SCH (07:39)
[2021-04-26] MEDS: MULTIVITAMIN with MINERAL TABLET. PO SCH (07:39)
[2021-04-26] MEDS: ASPIRIN CHEWABLE 81 MG TABLET. PO SCH (07:50)
[2021-04-26] MEDS: DIVALPROEX 125 MG CAP.SPRINK PO SCH ×2 (07:51→19:38)
[2021-04-26] MEDS: LISINOPRIL 20 MG TABLET PO SCH (07:51)
[2021-04-26] MEDS: GABAPENTIN 400 MG CAPSULE. PO SCH ×3 (07:51→19:29)
[2021-04-26] MEDS: TORSEMIDE 20 MG TABLET. PO SCH (07:51)
[2021-04-26] MEDS: ALLOPURINOL 100 MG TABLET. PO SCH ×2 (07:51→19:30)
[2021-04-26] MEDS: PANTOPRAZOLE 40 MG TABLET. PO SCH (07:51)
[2021-04-26] MEDS: FINASTERIDE 5 MG TABLET. PO SCH (07:51)
[2021-04-26] MEDS: MEMANTINE 10 MG TABLET. PO SCH ×2 (07:51→19:30)
[2021-04-26] MEDS: SPIRONOLACTONE 25 MG TABLET PO SCH (07:52)
[2021-04-26] MEDS: QUEtiapine 25 MG TABLET. PO SCH ×4 (07:52→16:43)
[2021-04-26] MEDS: MIRABEGRON 25 MG TAB.ER.24H PO SCH (07:58)
[2021-04-26] MEDS: DEXAMETHASONE 0.1% OPHTH SOLUTION 5ML BOTTLE. OU SCH ×2 (07:58→19:28)
[2021-04-26] MEDS: CYANOCOBALAMIN (VITAMIN B-12) 1,000 MCG TABLET. PO SCH (11:59)
[2021-04-26 15:53] VITALS: BP 128/62
[2021-04-26] MEDS: DONEPEZIL HCL 10 MG TABLET PO SCH (19:29)
[2021-04-26] MEDS: ATORVASTATIN CALCIUM 20 MG TABLET PO SCH (19:30)
[2021-04-26] MEDS: QUEtiapine 50 MG TABLET. PO SCH (19:31)
--- NOTE | 2021-04-26 22:03 | PN ---
DATE: 04/26/2021 SUBJECTIVE: The patient was seen today, met with the staff, chart reviewed. Also, covering for Dr. Cortes. Staff reports increased behavior problems, increased confusion, yelling, screaming and also sexually inappropriate at times with the staff. Staff also reports overall his behavior has improved slightly. OBSERVATION: VITAL SIGNS: Temperature 97.7, blood pressure 146/75, pulse 84, respirations 16, O2 sat 97%. GENERAL: Slept about 7 hours last night. The patient's appetite is fair. The patient is not having any physical complaints. CURRENT MEDICATIONS: Include Seroquel 50 mg q.6 hours p.r.n., Depakote sprinkles 250 mg twice daily, Seroquel 50 mg at night and Seroquel 25 mg t.i.d. and trazodone 50 mg at night p.r.n. The patient is also on Namenda 10 mg twice a day, Aricept 10 mg at night, and gabapentin 400 mg 3 times a day. The patient is not having any side effects to the medications. LABORATORY DATA: The patient's lab reviewed. ASSESSMENT: Major neurocognitive disorder, most likely Alzheimer's versus vascular with behavior problems. PLAN: Continue with the treatment. The patient's Depakote level was 26. The patient's Depakote was increased to 250 mg twice a day and 375 mg at night and repeat valproic acid level in [address]: KAYLEEN/mohinder TID: [id number]
[2021-04-27] MEDS: LEVOTHYROXINE 75 MCG TABLET PO SCH (04:53)
[2021-04-27] MEDS: QUEtiapine 50 MG TABLET. PO SCH ×2 (04:54→20:01)
[2021-04-27 05:25] VITALS: BP 156/87
[2021-04-27] MEDS: MAGNESIUM HYDROXIDE 2,400 MG/30 ML ORAL.SUSP. PO PRN (05:49)
[2021-04-27] MEDS: DEXAMETHASONE 0.1% OPHTH SOLUTION 5ML BOTTLE. OU SCH ×2 (07:34→20:01)
[2021-04-27] MEDS: PANTOPRAZOLE 40 MG TABLET. PO SCH (07:34)
[2021-04-27] MEDS: FINASTERIDE 5 MG TABLET. PO SCH (07:34)
[2021-04-27] MEDS: LISINOPRIL 20 MG TABLET PO SCH (07:34)
[2021-04-27] MEDS: ALLOPURINOL 100 MG TABLET. PO SCH ×2 (07:34→20:01)
[2021-04-27] MEDS: OMEGA-3 FATTY ACIDS/FISH OIL 1,000 MG CAPSULE. PO SCH (07:34)
[2021-04-27] MEDS: MEMANTINE 10 MG TABLET. PO SCH ×2 (07:35→20:01)
[2021-04-27] MEDS: TORSEMIDE 20 MG TABLET. PO SCH (07:35)
[2021-04-27] MEDS: DIVALPROEX 125 MG CAP.SPRINK PO SCH ×3 (07:35→20:02)
[2021-04-27] MEDS: ASPIRIN CHEWABLE 81 MG TABLET. PO SCH (07:35)
[2021-04-27] MEDS: MULTIVITAMIN with MINERAL TABLET. PO SCH (07:35)
[2021-04-27] MEDS: GABAPENTIN 400 MG CAPSULE. PO SCH ×3 (07:35→20:02)
[2021-04-27] MEDS: QUEtiapine 25 MG TABLET. PO SCH ×3 (07:35→17:00)
[2021-04-27] MEDS: MIRABEGRON 25 MG TAB.ER.24H PO SCH (07:37)
[2021-04-27] MEDS: CYANOCOBALAMIN (VITAMIN B-12) 1,000 MCG TABLET. PO SCH (12:00)
--- NOTE | 2021-04-27 12:03 | PN ---
DATE: 04/27/2021 SUBJECTIVE: The patient was seen today, met with the staff, chart was reviewed, and covering for Dr. Cortes. Staff reports that he is medication compliant. Still confused, disorganized, continues to have increased agitation, sometimes banging the doors and also yelling loudly, and also verbally abusive towards staff. OBSERVATION: VITAL SIGNS: Temperature 97.7, blood pressure 156/87, pulse 88, respirations 18, O2 sat 92%. GENERAL: Slept about 7 hours last night. The patient's appetite is fair. The patient had shown some improvement, still is needing supervision with ADLs. No falls recently. CURRENT MEDICATIONS: The patient's current medications include Seroquel 50 mg every 6 hours p.r.n., Depakote sprinkles 250 mg twice a day and 375 mg at night and valproic acid levels to be repeated. The patient is also on Seroquel 50 mg at night and 25 mg 3 times a day. He is also on trazodone 50 mg at night p.r.n. He is also on Namenda 10 mg twice a day, Aricept 10 mg daily and gabapentin 400 mg 3 times a day. The patient is not having any side effects to medications. LABORATORY DATA: The patient's lab reviewed. ASSESSMENT: Major neurocognitive disorder, most likely Alzheimer's versus vascular with behavior problems. PLAN: To continue with treatment. LENGTH OF STAY: Five to seven days. GRAYSON DR: KAYLEEN/mohinder TID: [id number]
[2021-04-27 15:34] VITALS: BP 156/91
[2021-04-27] MEDS: WARFARIN 5 MG TABLET. PO SCH (16:00)
[2021-04-27] MEDS: QUEtiapine 50 MG TABLET. PO PRN (17:17)
[2021-04-27] MEDS: ATORVASTATIN CALCIUM 20 MG TABLET PO SCH (20:01)
[2021-04-27] MEDS: DONEPEZIL HCL 10 MG TABLET PO SCH (20:01)
[2021-04-27] MEDS ORDERED: DIVALPROEX 125 MG CAP.SPRINK PO SCH (21:00)
[2021-04-28 05:57] VITALS: BP 121/74
[2021-04-28] MEDS: LEVOTHYROXINE 75 MCG TABLET PO SCH (06:00)
[2021-04-28] MEDS: QUEtiapine 50 MG TABLET. PO PRN (06:44)
[2021-04-28 07:49] LABS: VAL ACID 56 mcg/mL (50-100)
[2021-04-28] MEDS: FINASTERIDE 5 MG TABLET. PO SCH (08:41)
[2021-04-28] MEDS: QUEtiapine 25 MG TABLET. PO SCH ×3 (08:41→17:09)
[2021-04-28] MEDS: TORSEMIDE 20 MG TABLET. PO SCH (08:41)
[2021-04-28] MEDS: DIVALPROEX 125 MG CAP.SPRINK PO SCH ×3 (08:41→19:54)
[2021-04-28] MEDS: MEMANTINE 10 MG TABLET. PO SCH ×2 (08:41→19:54)
[2021-04-28] MEDS: SPIRONOLACTONE 25 MG TABLET PO SCH (08:41)
[2021-04-28] MEDS: OMEGA-3 FATTY ACIDS/FISH OIL 1,000 MG CAPSULE. PO SCH (08:41)
[2021-04-28] MEDS: DEXAMETHASONE 0.1% OPHTH SOLUTION 5ML BOTTLE. OU SCH ×2 (08:41→19:53)
[2021-04-28] MEDS: MIRABEGRON 25 MG TAB.ER.24H PO SCH (08:41)
[2021-04-28] MEDS: ALLOPURINOL 100 MG TABLET. PO SCH ×2 (08:41→19:54)
[2021-04-28] MEDS: PANTOPRAZOLE 40 MG TABLET. PO SCH (08:41)
[2021-04-28] MEDS: MULTIVITAMIN with MINERAL TABLET. PO SCH (08:41)
[2021-04-28] MEDS: ASPIRIN CHEWABLE 81 MG TABLET. PO SCH (08:41)
[2021-04-28] MEDS: GABAPENTIN 400 MG CAPSULE. PO SCH ×3 (08:42→19:53)
[2021-04-28] MEDS: LISINOPRIL 20 MG TABLET PO SCH (08:42)
[2021-04-28] MEDS: MAG HYDROX/AL HYDROX/SIMETH 30 ML ORAL.SUSP PO PRN (11:06)
[2021-04-28] MEDS: CYANOCOBALAMIN (VITAMIN B-12) 1,000 MCG TABLET. PO SCH (12:13)
[2021-04-28 16:08] VITALS: BP 91/65
[2021-04-28] MEDS: WARFARIN 5 MG TABLET. PO SCH (17:09)
[2021-04-28] MEDS: QUEtiapine 50 MG TABLET. PO SCH (19:54)
[2021-04-28] MEDS: DONEPEZIL HCL 10 MG TABLET PO SCH (19:54)
[2021-04-28] MEDS: ATORVASTATIN CALCIUM 20 MG TABLET PO SCH (19:54)
--- NOTE | 2021-04-29 03:08 | PN ---
DATE: 04/28/2021 SUBJECTIVE: The patient was seen today, met with the staff. Chart was reviewed. Also, covering for Dr. Cortes. The patient continues to have periods of agitation, confusion, difficult to redirect. He gets angry easily, demanding, also verbally abusive towards staff. OBSERVATION: VITAL SIGNS: Temperature 97.2, blood pressure 121/74, pulse 97, respirations 18, O2 sat 97%. GENERAL: Slept about 7-1/2 hours last night. The patient's appetite improved. The patient is able to ambulate, somewhat unsteady, but no falls. The patient continues to have difficulty with disorganized thinking, increased confusion, and also impulse control problems. CURRENT MEDICATIONS: Include Seroquel 50 mg q. 6 hours p.r.n., Seroquel 50 mg at night and 25 mg 3 times a day, Depakote 250 mg twice a day and 375 mg at night and the Depakote level was 50. He is also on Namenda 10 mg twice a day and Aricept 10 mg at night. He is also on gabapentin 400 mg 3 times a day. ASSESSMENT: Major neurocognitive disorder, most likely Alzheimer's versus vascular with behavior problems. PLAN: To continue with treatment. LENGTH OF STAY: 5-[address]: Evelin TID: [id number]
[2021-04-29] MEDS: LEVOTHYROXINE 75 MCG TABLET PO SCH (05:47)
[2021-04-29 05:58] VITALS: BP 100/55
[2021-04-29] MEDS: PANTOPRAZOLE 40 MG TABLET. PO SCH (07:29)
[2021-04-29] MEDS: DIVALPROEX 125 MG CAP.SPRINK PO SCH ×3 (07:29→20:43)
[2021-04-29] MEDS: FINASTERIDE 5 MG TABLET. PO SCH (07:29)
[2021-04-29] MEDS: QUEtiapine 25 MG TABLET. PO SCH ×3 (07:30→16:54)
[2021-04-29] MEDS: TORSEMIDE 20 MG TABLET. PO SCH (07:30)
[2021-04-29] MEDS: MEMANTINE 10 MG TABLET. PO SCH ×2 (07:30→20:42)
[2021-04-29] MEDS: MIRABEGRON 25 MG TAB.ER.24H PO SCH (07:30)
[2021-04-29] MEDS: ALLOPURINOL 100 MG TABLET. PO SCH ×2 (07:30→20:42)
[2021-04-29] MEDS: ASPIRIN CHEWABLE 81 MG TABLET. PO SCH (07:30)
[2021-04-29] MEDS: OMEGA-3 FATTY ACIDS/FISH OIL 1,000 MG CAPSULE. PO SCH (07:31)
[2021-04-29] MEDS: LISINOPRIL 20 MG TABLET PO SCH (07:31)
[2021-04-29] MEDS: DEXAMETHASONE 0.1% OPHTH SOLUTION 5ML BOTTLE. OU SCH ×2 (07:31→20:43)
[2021-04-29] MEDS: MULTIVITAMIN with MINERAL TABLET. PO SCH (07:31)
[2021-04-29] MEDS: GABAPENTIN 400 MG CAPSULE. PO SCH ×3 (07:31→20:42)
[2021-04-29] MEDS: CYANOCOBALAMIN (VITAMIN B-12) 1,000 MCG TABLET. PO SCH (12:49)
[2021-04-29 15:26] VITALS: BP 115/71
[2021-04-29] MEDS: WARFARIN 5 MG TABLET. PO SCH (16:54)
[2021-04-29] MEDS: DONEPEZIL HCL 10 MG TABLET PO SCH (20:42)
[2021-04-29] MEDS: ATORVASTATIN CALCIUM 20 MG TABLET PO SCH (20:42)
[2021-04-29] MEDS: QUEtiapine 50 MG TABLET. PO SCH (20:43)
--- NOTE | 2021-04-29 22:24 | PN ---
DATE: 04/29/2021 SUBJECTIVE: The patient was seen today, met with the staff, chart reviewed. The patient's behavior is slightly improved, but still confused, disorganized, constantly picking on his skin on his lower legs, difficult to redirect. He gets explosive at times, angry, difficult to redirect. OBSERVATION: VITAL SIGNS: Temperature 97.2, blood pressure 100/55, pulse 75, respirations 18, O2 sat 95%. Slept about 10 hours last night. GENERAL: The patient's appetite is fair. LABORATORY DATA: The patient's lab reviewed, CURRENT MEDICATIONS: Include Seroquel 25 mg 3 times a day and 50 mg at night, Aricept 10 mg at night, gabapentin 400 mg 3 times a day, Namenda 10 mg b.i.d. The patient is also on Depakote 250 mg in the morning and the afternoon and 375 mg at night. The patient's behavior is slightly improved. The patient did not have any falls. ASSESSMENT: Dementia, most likely Alzheimer's and vascular with behavior problems. PLAN: To continue with the treatment. LENGTH OF STAY: Five to seven days. ED DR: Evelin TID: [id number]
[2021-04-30] MEDS: traZODone 50 MG TABLET. PO PRN ×2 (00:15→01:17)
[2021-04-30] MEDS: LEVOTHYROXINE 75 MCG TABLET PO SCH (05:34)
[2021-04-30] MEDS: QUEtiapine 50 MG TABLET. PO PRN (05:41)
[2021-04-30 06:02] VITALS: BP 123/63
[2021-04-30] MEDS: LISINOPRIL 20 MG TABLET PO SCH (08:11)
[2021-04-30] MEDS: ALLOPURINOL 100 MG TABLET. PO SCH ×2 (08:11→20:09)
[2021-04-30] MEDS: TORSEMIDE 20 MG TABLET. PO SCH (08:11)
[2021-04-30] MEDS: ASPIRIN CHEWABLE 81 MG TABLET. PO SCH (08:12)
[2021-04-30] MEDS: DIVALPROEX 125 MG CAP.SPRINK PO SCH ×3 (08:12→20:10)
[2021-04-30] MEDS: SPIRONOLACTONE 25 MG TABLET PO SCH (08:12)
[2021-04-30] MEDS: OMEGA-3 FATTY ACIDS/FISH OIL 1,000 MG CAPSULE. PO SCH (08:12)
[2021-04-30] MEDS: FINASTERIDE 5 MG TABLET. PO SCH (08:12)
[2021-04-30] MEDS: MEMANTINE 10 MG TABLET. PO SCH ×2 (08:12→20:09)
[2021-04-30] MEDS: QUEtiapine 25 MG TABLET. PO SCH ×3 (08:12→16:47)
[2021-04-30] MEDS: MIRABEGRON 25 MG TAB.ER.24H PO SCH (08:12)
[2021-04-30] MEDS: MULTIVITAMIN with MINERAL TABLET. PO SCH (08:12)
[2021-04-30] MEDS: GABAPENTIN 400 MG CAPSULE. PO SCH ×3 (08:12→20:09)
[2021-04-30] MEDS: PANTOPRAZOLE 40 MG TABLET. PO SCH (08:12)
[2021-04-30] MEDS: DEXAMETHASONE 0.1% OPHTH SOLUTION 5ML BOTTLE. OU SCH ×2 (08:13→20:09)
[2021-04-30] MEDS: CYANOCOBALAMIN (VITAMIN B-12) 1,000 MCG TABLET. PO SCH (12:15)
[2021-04-30 13:30] LABS: BASO % 1 % (0-3); EOS # 0.4 x10^3/uL (0.0-0.7); EOS % 6 % (0-3); HEMATOCRIT 38.9 % (39.0-53.0); HEMOGLOBIN 12.8 g/dL (13.0-17.5); LYMPH # 1.7 x10^3/uL (1.0-4.8); LYMPH % 27 % (24-48); MEAN CORPUSCULAR HEMOGLOBIN 31 pg (25-35); MEAN CORPUSCULAR HGB CONC 33 g/dL (31-37); MEAN CORPUSCULAR VOLUME 94 fL (79-100); MONO # 0.5 x10^3/uL (0.0-1.1); MONO % 8 % (0-9); NEUT # 3.6 x10^3uL (1.8-7.7); NEUT % 58 % (31-73); PLATELET COUNT 159 x10^3/uL (140-400); RED BLOOD COUNT 4.15 x10^6/uL (4.30-5.70); RED CELL DISTRIBUTION WIDTH 16.1 % (11.5-14.5); WHITE BLOOD COUNT 6.2 x10^3/uL (4.0-11.0)
[2021-04-30 13:47] LABS: ALBUMIN 3.2 g/dL (3.4-5.0); ALBUMIN/GLOBULIN RATIO 0.9 (1.0-1.7); ALK PHOS 94 U/L (46-116); ALT (SGPT) 23 U/L (16-63); ANION GAP 9 (6-14); AST (SGOT) 20 U/L (15-37); BLOOD UREA NITROGEN 47 mg/dL (8-26); BUN/CREATININE RATIO 22 (6-20); CALCIUM 8.3 mg/dL (8.5-10.1); CARBON DIOXIDE 28 mmol/L (21-32); CHLORIDE 107 mmol/L (98-107); CREATININE 2.1 mg/dL (0.7-1.3); GFR 30.2; GLUCOSE 109 mg/dL (70-99); POTASSIUM 4.1 mmol/L (3.5-5.1); SODIUM 144 mmol/L (136-145); TOTAL BILIRUBIN 0.4 mg/dL (0.2-1.0); TOTAL PROTEIN 6.9 g/dL (6.4-8.2)
[2021-04-30 13:48] LABS: VAL ACID 62 mcg/mL (50-100)
[2021-04-30 15:05] VITALS: BP 124/62
[2021-04-30] MEDS: WARFARIN 5 MG TABLET. PO SCH (16:47)
[2021-04-30] MEDS: DONEPEZIL HCL 10 MG TABLET PO SCH (20:09)
[2021-04-30] MEDS: QUEtiapine 50 MG TABLET. PO SCH (20:10)
[2021-04-30] MEDS: ATORVASTATIN CALCIUM 20 MG TABLET PO SCH (20:10)
--- NOTE | 2021-04-30 20:19 | PN ---
DATE: 04/30/2021 SUBJECTIVE: The patient was seen today, met with the staff, chart reviewed and also covering for Dr. Cortes. The patient's behavior remains the same, still confused, disoriented to surroundings, also exhibiting poor impulse control, low frustration tolerance and having difficulty with interpersonal relationships. The patient also exhibiting mood swings and also gets agitated easily. VITAL SIGNS: Stable. The patient's sleep improved. The patient's appetite improved. LABORATORY DATA: The patient's lab reviewed. CURRENT MEDICATIONS: The patient's current medications include Depakote 250 mg twice a day and 375 mg at night, Seroquel 50 mg q. 6 hours p.r.n. and 50 mg at night p.o. The patient is also on Seroquel 25 mg 3 times a day. The patient is also on Namenda 10 mg b.i.d. and Aricept 10 mg at night. The patient is not having any side effects to medications. ASSESSMENT: Dementia, most likely Alzheimer's and vascular with behavior problems. PLAN: To continue treatment. LENGTH OF STAY: 5 to [address]: Evelin TID: [id number]
[2021-05-01] MEDS: QUEtiapine 50 MG TABLET. PO PRN ×2 (03:46→23:30)
[2021-05-01] MEDS: LEVOTHYROXINE 75 MCG TABLET PO SCH (05:05)
[2021-05-01 05:57] VITALS: BP 177/60
[2021-05-01] MEDS: FINASTERIDE 5 MG TABLET. PO SCH (08:10)
[2021-05-01] MEDS: ALLOPURINOL 100 MG TABLET. PO SCH ×2 (08:10→19:56)
[2021-05-01] MEDS: MIRABEGRON 25 MG TAB.ER.24H PO SCH (08:10)
[2021-05-01] MEDS: MULTIVITAMIN with MINERAL TABLET. PO SCH (08:10)
[2021-05-01] MEDS: QUEtiapine 25 MG TABLET. PO SCH ×3 (08:12→15:16)
[2021-05-01] MEDS: TORSEMIDE 20 MG TABLET. PO SCH (08:12)
[2021-05-01] MEDS: LISINOPRIL 20 MG TABLET PO SCH (08:12)
[2021-05-01] MEDS: PANTOPRAZOLE 40 MG TABLET. PO SCH (08:12)
[2021-05-01] MEDS: OMEGA-3 FATTY ACIDS/FISH OIL 1,000 MG CAPSULE. PO SCH (08:12)
[2021-05-01] MEDS: GABAPENTIN 400 MG CAPSULE. PO SCH ×3 (08:12→19:56)
[2021-05-01] MEDS: ASPIRIN CHEWABLE 81 MG TABLET. PO SCH (08:12)
[2021-05-01] MEDS: MEMANTINE 10 MG TABLET. PO SCH ×2 (08:12→19:56)
[2021-05-01] MEDS: DEXAMETHASONE 0.1% OPHTH SOLUTION 5ML BOTTLE. OU SCH ×2 (08:13→19:54)
[2021-05-01] MEDS: DIVALPROEX 125 MG CAP.SPRINK PO SCH ×3 (08:13→19:55)
[2021-05-01] MEDS: CYANOCOBALAMIN (VITAMIN B-12) 1,000 MCG TABLET. PO SCH (13:01)
[2021-05-01] MEDS: WARFARIN 5 MG TABLET. PO SCH (15:15)
[2021-05-01 15:40] VITALS: BP 123/64
[2021-05-01] MEDS: ATORVASTATIN CALCIUM 20 MG TABLET PO SCH (19:55)
[2021-05-01] MEDS: DONEPEZIL HCL 10 MG TABLET PO SCH (19:55)
[2021-05-01] MEDS: QUEtiapine 50 MG TABLET. PO SCH (19:56)
[2021-05-01] MEDS: MAGNESIUM HYDROXIDE 2,400 MG/30 ML ORAL.SUSP. PO PRN (19:57)
[2021-05-01] MEDS: traZODone 50 MG TABLET. PO PRN (22:14)
--- NOTE | 2021-05-01 22:39 | PN ---
DATE: 05/01/2021 SUBJECTIVE: The patient was seen today, met with the staff, chart reviewed. Staff reports no major change, continues to have problems with agitation, aggressive behaviors and also significant cognitive deficits. The patient became restless. He continues to be aggressive, demanding, not able to follow directions and yelling. OBSERVATION: VITAL SIGNS: Temperature 96.8, blood pressure 177/68, pulse 93, respirations 18, O2 sat 91%. GENERAL: Slept about 6-1/2 hours last night. The patient's appetite is improved. CURRENT MEDICATIONS: Include Depakote 250 mg twice a day and 375 mg at night, Seroquel 50 mg q.6 hours p.r.n. and 50 mg at night, p.o. The patient is also on Seroquel 25 mg 3 times a day. He is also on Namenda 10 mg b.i.d. and Aricept 10 mg at night. The patient is not exhibiting any side effects to medications. LABORATORY DATA: The patient's lab reviewed. ASSESSMENT: Dementia, most likely Alzheimer's and vascular with behavior problems. PLAN: Continue with treatment. LENGTH OF STAY: Five to seven days. ED DR: Evelin TID: [id number]
[2021-05-02] MEDS: LEVOTHYROXINE 75 MCG TABLET PO SCH (04:42)
[2021-05-02 05:58] VITALS: BP 156/78
[2021-05-02] MEDS: TORSEMIDE 20 MG TABLET. PO SCH (08:17)
[2021-05-02] MEDS: FINASTERIDE 5 MG TABLET. PO SCH (08:17)
[2021-05-02] MEDS: QUEtiapine 25 MG TABLET. PO SCH ×3 (08:17→17:13)
[2021-05-02] MEDS: OMEGA-3 FATTY ACIDS/FISH OIL 1,000 MG CAPSULE. PO SCH (08:17)
[2021-05-02] MEDS: GABAPENTIN 400 MG CAPSULE. PO SCH ×3 (08:17→19:51)
[2021-05-02] MEDS: DIVALPROEX 125 MG CAP.SPRINK PO SCH ×3 (08:17→19:54)
[2021-05-02] MEDS: MEMANTINE 10 MG TABLET. PO SCH ×2 (08:17→19:52)
[2021-05-02] MEDS: MULTIVITAMIN with MINERAL TABLET. PO SCH (08:17)
[2021-05-02] MEDS: ASPIRIN CHEWABLE 81 MG TABLET. PO SCH (08:18)
[2021-05-02] MEDS: LISINOPRIL 20 MG TABLET PO SCH (08:18)
[2021-05-02] MEDS: ALLOPURINOL 100 MG TABLET. PO SCH ×2 (08:18→19:54)
[2021-05-02] MEDS: DEXAMETHASONE 0.1% OPHTH SOLUTION 5ML BOTTLE. OU SCH ×2 (08:18→19:50)
[2021-05-02] MEDS: SPIRONOLACTONE 25 MG TABLET PO SCH (08:18)
[2021-05-02] MEDS: PANTOPRAZOLE 40 MG TABLET. PO SCH (08:19)
[2021-05-02] MEDS: MIRABEGRON 25 MG TAB.ER.24H PO SCH (08:19)
[2021-05-02 09:16] LABS: BILIRUBIN,URINE NEG (NEG); CLARITY,URINE CLEAR; COLOR,URINE YELLOW; GLUCOSE,URINE NEG (NEG)
[2021-05-02 09:17] LABS: BACTERIA,URINE 0 /HPF (0-FEW); NITRITE,URINE NEG (NEG); RBC,URINE 0 /HPF (0-2); UROBILINOGEN,URINE 0.2 mg/dL (0.2 mg/dL); WBC,URINE OCC /HPF (0-4)
[2021-05-02] MEDS: CYANOCOBALAMIN (VITAMIN B-12) 1,000 MCG TABLET. PO SCH (12:49)
[2021-05-02] MEDS: WARFARIN 5 MG TABLET. PO SCH (12:52)
[2021-05-02 15:51] VITALS: BP 116/75
[2021-05-02] MEDS: QUEtiapine 50 MG TABLET. PO SCH (19:51)
[2021-05-02] MEDS: ATORVASTATIN CALCIUM 20 MG TABLET PO SCH (19:52)
[2021-05-02] MEDS: DONEPEZIL HCL 10 MG TABLET PO SCH (19:52)
[2021-05-03] MEDS: QUEtiapine 50 MG TABLET. PO PRN ×2 (01:20→11:26)
[2021-05-03] MEDS: traZODone 50 MG TABLET. PO PRN (01:20)
[2021-05-03] MEDS: LEVOTHYROXINE 75 MCG TABLET PO SCH (05:15)
[2021-05-03 06:27] VITALS: BP 109/69
[2021-05-03] MEDS: DIVALPROEX 125 MG CAP.SPRINK PO SCH ×3 (07:55→19:57)
[2021-05-03] MEDS: PANTOPRAZOLE 40 MG TABLET. PO SCH (07:55)
[2021-05-03] MEDS: MULTIVITAMIN with MINERAL TABLET. PO SCH (07:55)
[2021-05-03] MEDS: MEMANTINE 10 MG TABLET. PO SCH ×2 (07:56→19:56)
[2021-05-03] MEDS: MIRABEGRON 25 MG TAB.ER.24H PO SCH (07:56)
[2021-05-03] MEDS: ASPIRIN CHEWABLE 81 MG TABLET. PO SCH (07:56)
[2021-05-03] MEDS: QUEtiapine 25 MG TABLET. PO SCH ×3 (07:56→16:18)
[2021-05-03] MEDS: OMEGA-3 FATTY ACIDS/FISH OIL 1,000 MG CAPSULE. PO SCH (07:56)
[2021-05-03] MEDS: ALLOPURINOL 100 MG TABLET. PO SCH ×2 (07:56→19:56)
[2021-05-03] MEDS: GABAPENTIN 400 MG CAPSULE. PO SCH ×3 (07:56→19:56)
[2021-05-03] MEDS: FINASTERIDE 5 MG TABLET. PO SCH (07:56)
[2021-05-03] MEDS: LISINOPRIL 20 MG TABLET PO SCH (07:56)
[2021-05-03] MEDS: DEXAMETHASONE 0.1% OPHTH SOLUTION 5ML BOTTLE. OU SCH ×2 (08:01→19:55)
[2021-05-03] MEDS: TORSEMIDE 20 MG TABLET. PO SCH (08:02)
[2021-05-03] MEDS: CYANOCOBALAMIN (VITAMIN B-12) 1,000 MCG TABLET. PO SCH (11:25)
--- NOTE | 2021-05-03 13:58 | PN ---
DATE: 05/03/2021 SUBJECTIVE: The patient was seen today, met with the staff, chart reviewed. The patient's behavior, remains the same. Continues to be agitated easily and difficult to redirect and also confused. OBSERVATION: VITAL SIGNS: Temperature 97.3, blood pressure 109/69, pulse 80, respirations 18, O2 sat 92%. Slept about 8 hours last night. GENERAL: The patient's appetite normal. The patient did not have any falls. CURRENT MEDICATIONS: The patient's current medications include Depakote 250 mg in the morning and 375 at night, Seroquel 50 mg at night and also p.r.n. at night. The patient is also on Seroquel 25 mg 3 times a day, Namenda 10 mg b.i.d. and Aricept 10 mg at night. The patient is not having any side effects to medications. LABORATORY DATA: The patient's lab reviewed. ASSESSMENT: Dementia, most likely Alzheimer's and vascular with behavior problems. PLAN: Continue with treatment. LENGTH OF STAY: [address]: Evelin TID: [id number]
--- NOTE | 2021-05-03 15:13 | PN ---
DATE: 05/02/2021 SUBJECTIVE: This is the late entry for the service date 05/02/2021 by telehealth. I met with the staff. Chart was reviewed and also reviewed his medications. Staff reports continued behavioral problems. The patient constantly pacing, also episodes of increased agitation for no apparent reason. Started kicking the doors. The patient also difficult to redirect at times. OBJECTIVE: VITAL SIGNS: Temperature 96.8, blood pressure 156/78, pulse 81, respirations 22, O2 sat 93%. GENERAL: Slept about 7 hours last night. The patient's appetite is fair. He is on wheelchair and also has a fall risk. CURRENT MEDICATIONS: Include Depakote 250 mg twice a day and 375 mg at night, Seroquel 50 mg q. 6 hours p.r.n. and also 50 mg at night, Seroquel 25 mg 3 times a day. The patient is not having any side effects to medications. ASSESSMENT: Dementia, most likely Alzheimer's and vascular with behavior problems. PLAN: Continue treatment. LENGTH OF STAY: 5-7 days. CHASE/COLIN DR: Evelin TID: [id number]
[2021-05-03 15:56] VITALS: BP 112/72
[2021-05-03] MEDS: WARFARIN 5 MG TABLET. PO SCH (16:18)
[2021-05-03] MEDS: DONEPEZIL HCL 10 MG TABLET PO SCH (19:55)
[2021-05-03] MEDS: ATORVASTATIN CALCIUM 20 MG TABLET PO SCH (19:55)
[2021-05-03] MEDS: QUEtiapine 50 MG TABLET. PO SCH (19:56)
[2021-05-04] MEDS: traZODone 50 MG TABLET. PO PRN (01:50)
[2021-05-04] MEDS: LEVOTHYROXINE 75 MCG TABLET PO SCH (05:14)
[2021-05-04 06:11] VITALS: BP 118/81
[2021-05-04] MEDS: DIVALPROEX 125 MG CAP.SPRINK PO SCH ×3 (07:47→20:38)
[2021-05-04] MEDS: ASPIRIN CHEWABLE 81 MG TABLET. PO SCH (07:47)
[2021-05-04] MEDS: TORSEMIDE 20 MG TABLET. PO SCH (07:47)
[2021-05-04] MEDS: QUEtiapine 25 MG TABLET. PO SCH ×3 (07:47→16:33)
[2021-05-04] MEDS: FINASTERIDE 5 MG TABLET. PO SCH (07:47)
[2021-05-04] MEDS: OMEGA-3 FATTY ACIDS/FISH OIL 1,000 MG CAPSULE. PO SCH (07:47)
[2021-05-04] MEDS: GABAPENTIN 400 MG CAPSULE. PO SCH ×3 (07:47→20:38)
[2021-05-04] MEDS: MULTIVITAMIN with MINERAL TABLET. PO SCH (07:47)
[2021-05-04] MEDS: SPIRONOLACTONE 25 MG TABLET PO SCH (07:48)
[2021-05-04] MEDS: LISINOPRIL 20 MG TABLET PO SCH (07:48)
[2021-05-04] MEDS: PANTOPRAZOLE 40 MG TABLET. PO SCH (07:48)
[2021-05-04] MEDS: MEMANTINE 10 MG TABLET. PO SCH ×2 (07:48→20:38)
[2021-05-04] MEDS: MIRABEGRON 25 MG TAB.ER.24H PO SCH (07:48)
[2021-05-04] MEDS: DEXAMETHASONE 0.1% OPHTH SOLUTION 5ML BOTTLE. OU SCH ×2 (07:48→20:38)
[2021-05-04] MEDS: ALLOPURINOL 100 MG TABLET. PO SCH ×2 (07:48→20:38)
[2021-05-04] MEDS: CYANOCOBALAMIN (VITAMIN B-12) 1,000 MCG TABLET. PO SCH (12:13)
--- NOTE | 2021-05-04 14:22 | RAD ---
INDICATION: Reason: baseline / Spl. Instructions: / History: Altered mental status. COMPARISON: None. TECHNIQUE: Axial CT images obtained through the head without intravenous contrast. One or more of the following individualized dose reduction techniques were utilized for this examinat ion: 1. Automated exposure control; 2. Adjustment of the mA and/or kV according to patient size; 3 . Use of iterative reconstruction technique. FINDINGS: No intracranial hemorrhage. No significant midline shift. Ventricles and sulci are globally prominent. Scattered foci of low attenuation within the white matter. IMPRESSION: * No acute intracranial hemorrhage. * Scattered regions of low attenuation within the white matter. Non-specific in nature but a common finding and frequently secondary to small vessel ischemic disease. If there is high concern for acut e causes clinically MRI could better assess acuity. * Diffuse prominence of the ventricles and sulci which can be seen with age-related volume loss. Sup erimposed pathologic cause such as normal pressure hydrocephalus not excluded. * Calcific atherosclerosis. * Prominent size of basilar artery. Electronically signed by: Chava Bhardwaj MD (05/04/2021 2:20 PM) [id number]
[2021-05-04] MEDS: QUEtiapine 50 MG TABLET. PO PRN (14:30)
[2021-05-04] MEDS: MAG HYDROX/AL HYDROX/SIMETH 30 ML ORAL.SUSP PO PRN (15:27)
[2021-05-04 16:21] VITALS: BP 105/66
[2021-05-04] MEDS: WARFARIN 5 MG TABLET. PO SCH (16:33)
[2021-05-04] MEDS: ATORVASTATIN CALCIUM 20 MG TABLET PO SCH (20:38)
[2021-05-04] MEDS: DONEPEZIL HCL 10 MG TABLET PO SCH (20:38)
[2021-05-04] MEDS: QUEtiapine 50 MG TABLET. PO SCH (20:39)
--- NOTE | 2021-05-04 21:34 | PN ---
DATE: 05/04/2021 SUBJECTIVE: The patient was seen today, met with the staff, chart reviewed. Staff concerned about the patient's behavior. The patient is becoming increasingly confused, getting upset easily and also aggressive towards staff and also episodes of intense emotions rage stamping his feet on the ground and also kicking the doors. Staff observed that the patient is exhibiting fluctuating symptoms. He gets into a rage and then calmed down and goes to sleep when he is awake. He is irritable, constantly pacing, also difficult to redirect, also participated in the treatment review conference today. OBSERVATION: VITAL SIGNS: Temperature 97.1, blood pressure 118/81, pulse 77, respirations 20, O2 sat 93%. Slept about 5-1/2 hours last night. GENERAL: The patient's appetite is fair. LABORATORY DATA: The patient's CT scan reviewed. The patient had a CT scan today. Findings; no intracranial hemorrhage, no significant midline shift. Ventricles and sulci are globally prominent and shattered, foci of low attenuation within the white matter. CURRENT MEDICATIONS: The patient's current medications include Depakote 250 mg twice a day and 375 mg at night, Seroquel 50 mg q.6 hours p.r.n. and also 50 mg at night, Seroquel 25 mg 3 times a day. The patient is not having any side effects to medications. Staff reports that he is not responding to any of those medications and requesting a change. The patient is uncontrollable most of the time. The patient's lab reviewed. ASSESSMENT: Dementia, most likely Alzheimer's and vascular with behavior problems. PLAN: To continue with the treatment. The patient's medications changed. The patient's Depakote increased to 250 mg twice a day and 500 mg at night and check valproic acid level in 3 days. The patient's Seroquel was decreased to 50 mg twice a day and start on Zyprexa 5 mg q. 4 hours p.r.n., not to exceed 50 mg daily. LENGTH OF STAY: 5 to [address]: Evelin TID: [id number]
[2021-05-05 06:08] VITALS: BP 109/69
[2021-05-05] MEDS: LEVOTHYROXINE 75 MCG TABLET PO SCH (06:39)
[2021-05-05] MEDS: MIRABEGRON 25 MG TAB.ER.24H PO SCH (08:02)
[2021-05-05] MEDS: PANTOPRAZOLE 40 MG TABLET. PO SCH (08:03)
[2021-05-05] MEDS: TORSEMIDE 20 MG TABLET. PO SCH (08:03)
[2021-05-05] MEDS: MEMANTINE 10 MG TABLET. PO SCH ×2 (08:03→20:53)
[2021-05-05] MEDS: FINASTERIDE 5 MG TABLET. PO SCH (08:03)
[2021-05-05] MEDS: DIVALPROEX 125 MG CAP.SPRINK PO SCH ×3 (08:03→20:52)
[2021-05-05] MEDS: ASPIRIN CHEWABLE 81 MG TABLET. PO SCH (08:04)
[2021-05-05] MEDS: GABAPENTIN 400 MG CAPSULE. PO SCH ×3 (08:04→20:52)
[2021-05-05] MEDS: MULTIVITAMIN with MINERAL TABLET. PO SCH (08:04)
[2021-05-05] MEDS: QUEtiapine 50 MG TABLET. PO SCH ×2 (08:04→20:53)
[2021-05-05] MEDS: ALLOPURINOL 100 MG TABLET. PO SCH ×2 (08:04→20:53)
[2021-05-05] MEDS: LISINOPRIL 20 MG TABLET PO SCH (08:04)
[2021-05-05] MEDS: OMEGA-3 FATTY ACIDS/FISH OIL 1,000 MG CAPSULE. PO SCH (08:04)
[2021-05-05] MEDS: DEXAMETHASONE 0.1% OPHTH SOLUTION 5ML BOTTLE. OU SCH ×2 (08:05→20:52)
[2021-05-05] MEDS: CYANOCOBALAMIN (VITAMIN B-12) 1,000 MCG TABLET. PO SCH (12:42)
[2021-05-05 15:38] VITALS: BP 107/54
[2021-05-05] MEDS: WARFARIN 5 MG TABLET. PO SCH (16:37)
[2021-05-05] MEDS: DONEPEZIL HCL 10 MG TABLET PO SCH (20:52)
[2021-05-05] MEDS: ATORVASTATIN CALCIUM 20 MG TABLET PO SCH (20:53)
--- NOTE | 2021-05-05 22:03 | PN ---
DATE: 05/05/2021 SUBJECTIVE: The patient was seen today, met with the staff, chart reviewed. The patient continues to be irritable, restless, wandering, demanding and also kicking doors and also intrusive and apparently is going to other residents' rooms. Apparently some of the female residents are upset and fearful of him. The patient is difficult to supervise. OBJECTIVE: VITAL SIGNS: Temperature 97.4, blood pressure 109/69, pulse 85, respirations 18, O2 sat 95%. Slept about 5-1/2 hours. GENERAL: The patient's appetite is fair. LABORATORY DATA: The patient's lab reviewed. CURRENT MEDICATIONS: The patient's current medications include Depakote 250 mg twice a day and 500 mg at night. The patient is also on Seroquel 50 mg twice a day and Zyprexa 5 mg q. 4 hours p.r.n. The patient is not having any side effects to medications. ASSESSMENT: Dementia, most likely Alzheimer's and vascular with behavior problems. PLAN: To continue with treatment. LENGTH OF STAY: 5 to [address]: Evelin TID: [id number]
[2021-05-06] MEDS: LEVOTHYROXINE 75 MCG TABLET PO SCH (05:11)
[2021-05-06 06:23] VITALS: BP 107/57
[2021-05-06] MEDS: SPIRONOLACTONE 25 MG TABLET PO SCH (08:05)
[2021-05-06] MEDS: GABAPENTIN 400 MG CAPSULE. PO SCH ×3 (08:05→20:05)
[2021-05-06] MEDS: DIVALPROEX 125 MG CAP.SPRINK PO SCH ×3 (08:05→20:05)
[2021-05-06] MEDS: PANTOPRAZOLE 40 MG TABLET. PO SCH (08:05)
[2021-05-06] MEDS: MIRABEGRON 25 MG TAB.ER.24H PO SCH (08:06)
[2021-05-06] MEDS: FINASTERIDE 5 MG TABLET. PO SCH (08:06)
[2021-05-06] MEDS: ALLOPURINOL 100 MG TABLET. PO SCH ×2 (08:06→20:05)
[2021-05-06] MEDS: OMEGA-3 FATTY ACIDS/FISH OIL 1,000 MG CAPSULE. PO SCH (08:06)
[2021-05-06] MEDS: CYANOCOBALAMIN (VITAMIN B-12) 1,000 MCG TABLET. PO SCH (08:06)
[2021-05-06] MEDS: TORSEMIDE 20 MG TABLET. PO SCH (08:06)
[2021-05-06] MEDS: QUEtiapine 50 MG TABLET. PO SCH ×2 (08:06→20:04)
[2021-05-06] MEDS: MEMANTINE 10 MG TABLET. PO SCH ×2 (08:06→20:06)
[2021-05-06] MEDS: MULTIVITAMIN with MINERAL TABLET. PO SCH (08:06)
[2021-05-06] MEDS: ASPIRIN CHEWABLE 81 MG TABLET. PO SCH (08:06)
[2021-05-06 12:26] VITALS: BP 100/49
[2021-05-06] MEDS: LISINOPRIL 20 MG TABLET PO SCH (12:26)
[2021-05-06] MEDS: DEXAMETHASONE 0.1% OPHTH SOLUTION 5ML BOTTLE. OU SCH ×2 (12:27→20:06)
[2021-05-06] MEDS: WARFARIN 5 MG TABLET. PO SCH (13:55)
[2021-05-06 15:39] VITALS: BP 128/67
[2021-05-06] MEDS: DONEPEZIL HCL 10 MG TABLET PO SCH (20:05)
[2021-05-06] MEDS: ATORVASTATIN CALCIUM 20 MG TABLET PO SCH (20:05)
[2021-05-06] MEDS: QUEtiapine 100 MG TABLET. PO SCH (20:08)
--- NOTE | 2021-05-06 21:47 | PN ---
DATE: 05/06/2021 SUBJECTIVE: The patient was seen today, met with the staff, chart reviewed. Staff reports continued behavior problems, being restless, irritable and also being intrusive, emotional lability and angry outburst. The patient apparently showed some improvement today. LABORATORY DATA: The patient's lab reviewed. CURRENT MEDICATIONS: The patient's current medications include Seroquel 50 mg daily and Seroquel increased to 100 mg at night, Depakote 500 mg at night and 250 mg twice a day, olanzapine 5 mg q. 4 hours p.r.n., trazodone 50 mg at night p.r.n. The patient is not having any side effects to medications. ASSESSMENT: Dementia, most likely Alzheimer's and vascular with behavior problems. PLAN: To continue with treatment. LENGTH OF STAY: Five to seven days. VIJAY DR: Evelin TID: [id number]
[2021-05-07] MEDS: LEVOTHYROXINE 75 MCG TABLET PO SCH (03:29)
[2021-05-07 06:06] VITALS: BP 144/87
[2021-05-07 08:11] LABS: BASO # 0.1 x10^3/uL (0.0-0.2); BASO % 1 % (0-3); EOS # 0.4 x10^3/uL (0.0-0.7); EOS % 5 % (0-3); HEMATOCRIT 40.9 % (39.0-53.0); HEMOGLOBIN 13.2 g/dL (13.0-17.5); LYMPH # 1.5 x10^3/uL (1.0-4.8); LYMPH % 21 % (24-48); MEAN CORPUSCULAR HEMOGLOBIN 31 pg (25-35); MEAN CORPUSCULAR HGB CONC 32 g/dL (31-37); MEAN CORPUSCULAR VOLUME 95 fL (79-100); MONO # 0.7 x10^3/uL (0.0-1.1); MONO % 10 % (0-9); NEUT # 4.5 x10^3uL (1.8-7.7); NEUT % 63 % (31-73); PLATELET COUNT 191 x10^3/uL (140-400); RED BLOOD COUNT 4.29 x10^6/uL (4.30-5.70); RED CELL DISTRIBUTION WIDTH 16.7 % (11.5-14.5); WHITE BLOOD COUNT 7.2 x10^3/uL (4.0-11.0)
[2021-05-07 08:16] LABS: ALBUMIN 3.2 g/dL (3.4-5.0); ALK PHOS 96 U/L (46-116); ALT (SGPT) 25 U/L (16-63); ANION GAP 10 (6-14); AST (SGOT) 24 U/L (15-37); BLOOD UREA NITROGEN 43 mg/dL (8-26); BUN/CREATININE RATIO 20 (6-20); CALCIUM 8.2 mg/dL (8.5-10.1); CARBON DIOXIDE 30 mmol/L (21-32); CHLORIDE 110 mmol/L (98-107); CREATININE 2.2 mg/dL (0.7-1.3); GFR 28.7; GLUCOSE 143 mg/dL (70-99); SODIUM 150 mmol/L (136-145); TOTAL BILIRUBIN 0.4 mg/dL (0.2-1.0); TOTAL PROTEIN 6.4 g/dL (6.4-8.2)
[2021-05-07 08:29] LABS: VAL ACID 64 mcg/mL (50-100)
[2021-05-07] MEDS: LISINOPRIL 20 MG TABLET PO SCH (08:41)
[2021-05-07] MEDS: MIRABEGRON 25 MG TAB.ER.24H PO SCH (08:41)
[2021-05-07] MEDS: MULTIVITAMIN with MINERAL TABLET. PO SCH (08:41)
[2021-05-07] MEDS: OMEGA-3 FATTY ACIDS/FISH OIL 1,000 MG CAPSULE. PO SCH (08:41)
[2021-05-07] MEDS: ALLOPURINOL 100 MG TABLET. PO SCH ×2 (08:41→20:13)
[2021-05-07] MEDS: DIVALPROEX 125 MG CAP.SPRINK PO SCH ×3 (08:41→20:15)
[2021-05-07] MEDS: PANTOPRAZOLE 40 MG TABLET. PO SCH (08:41)
[2021-05-07] MEDS: ASPIRIN CHEWABLE 81 MG TABLET. PO SCH (08:41)
[2021-05-07] MEDS: FINASTERIDE 5 MG TABLET. PO SCH (08:42)
[2021-05-07] MEDS: GABAPENTIN 400 MG CAPSULE. PO SCH ×3 (08:42→20:13)
[2021-05-07] MEDS: MEMANTINE 10 MG TABLET. PO SCH ×2 (08:42→20:15)
[2021-05-07] MEDS: TORSEMIDE 20 MG TABLET. PO SCH (08:42)
[2021-05-07] MEDS: DEXAMETHASONE 0.1% OPHTH SOLUTION 5ML BOTTLE. OU SCH ×2 (08:42→20:18)
[2021-05-07] MEDS: WARFARIN 5 MG TABLET. PO SCH (13:45)
[2021-05-07] MEDS: CYANOCOBALAMIN (VITAMIN B-12) 1,000 MCG TABLET. PO SCH (13:46)
[2021-05-07 15:51] VITALS: BP 132/87
[2021-05-07] MEDS: DONEPEZIL HCL 10 MG TABLET PO SCH (20:13)
[2021-05-07] MEDS: QUEtiapine 100 MG TABLET. PO SCH (20:13)
[2021-05-07] MEDS: ATORVASTATIN CALCIUM 20 MG TABLET PO SCH (20:18)
--- NOTE | 2021-05-07 20:32 | PN ---
DATE: 05/07/2021 SUBJECTIVE: The patient is seen today, met with the staff. Chart reviewed. The patient's behavior, remains the same, slight improvement, still episodes of agitation, difficult to redirect and also constantly pacing on his wheelchair. OBSERVATION: VITAL SIGNS: Temperature 97.0, blood pressure 144/87, pulse 95, respirations 18, O2 sat 95%. GENERAL: Slept about 5 hours last night. The patient's appetite is fair. The patient is not having any physical complaints. LABORATORY DATA: The patient's lab reviewed. CURRENT MEDICATIONS: Seroquel 50 mg daily and 100 mg at night, Depakote 500 mg at night and ___ twice a day, olanzapine 5 mg q. 4 hours p.r.n., trazodone 50 mg at night p.r.n. He is not having any side effects to medications. ASSESSMENT: Dementia, most likely Alzheimer's and vascular with behavior problems. PLAN: To continue treatment. LENGTH OF STAY: Seven days. DAHIANA DR: Evelin TID: [id number]
[2021-05-08] MEDS: LEVOTHYROXINE 75 MCG TABLET PO SCH (05:20)
[2021-05-08 06:19] VITALS: BP 136/67
[2021-05-08] MEDS: MIRABEGRON 25 MG TAB.ER.24H PO SCH (09:18)
[2021-05-08] MEDS: QUEtiapine 50 MG TABLET. PO SCH (09:19)
[2021-05-08] MEDS: MEMANTINE 10 MG TABLET. PO SCH ×2 (09:19→19:52)
[2021-05-08] MEDS: MULTIVITAMIN with MINERAL TABLET. PO SCH (09:19)
[2021-05-08] MEDS: ASPIRIN CHEWABLE 81 MG TABLET. PO SCH (09:19)
[2021-05-08] MEDS: DIVALPROEX 125 MG CAP.SPRINK PO SCH ×3 (09:19→19:52)
[2021-05-08] MEDS: PANTOPRAZOLE 40 MG TABLET. PO SCH (09:20)
[2021-05-08] MEDS: SPIRONOLACTONE 25 MG TABLET PO SCH (09:20)
[2021-05-08] MEDS: ALLOPURINOL 100 MG TABLET. PO SCH ×2 (09:21→19:52)
[2021-05-08] MEDS: GABAPENTIN 400 MG CAPSULE. PO SCH ×3 (09:21→19:53)
[2021-05-08] MEDS: OMEGA-3 FATTY ACIDS/FISH OIL 1,000 MG CAPSULE. PO SCH (09:21)
[2021-05-08] MEDS: TORSEMIDE 20 MG TABLET. PO SCH (09:21)
[2021-05-08] MEDS: FINASTERIDE 5 MG TABLET. PO SCH (09:21)
[2021-05-08] MEDS: DEXAMETHASONE 0.1% OPHTH SOLUTION 5ML BOTTLE. OU SCH ×2 (09:22→19:52)
[2021-05-08] MEDS: LISINOPRIL 20 MG TABLET PO SCH (09:22)
[2021-05-08] MEDS: MAG HYDROX/AL HYDROX/SIMETH 30 ML ORAL.SUSP PO PRN (10:20)
[2021-05-08] MEDS: CYANOCOBALAMIN (VITAMIN B-12) 1,000 MCG TABLET. PO SCH (14:30)
[2021-05-08] MEDS: WARFARIN 5 MG TABLET. PO SCH (14:30)
[2021-05-08 15:50] VITALS: BP 110/59
[2021-05-08] MEDS: DONEPEZIL HCL 10 MG TABLET PO SCH (19:52)
[2021-05-08] MEDS: QUEtiapine 100 MG TABLET. PO SCH (19:53)
[2021-05-08] MEDS: ATORVASTATIN CALCIUM 20 MG TABLET PO SCH (19:53)
[2021-05-08] MEDS: traZODone 50 MG TABLET. PO PRN ×2 (20:49→22:04)
--- NOTE | 2021-05-08 22:01 | PN ---
DATE: 05/08/2021 SUBJECTIVE: The patient continues to show improvement, except for episodes of anger, agitation, intrusive, constantly pacing. Staff reports periods of agitation, irritability, abusive towards staff, but is compliant with medications. 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 The patient was given p.r.n. Zyprexa. OBSERVATION: VITAL SIGNS: Temperature 97.6, blood pressure 136/67, pulse 68, respirations 18, O2 sat 95%. GENERAL: Slept about 5 hours last night. The patient's appetite is fair. CURRENT MEDICATIONS: Seroquel 50 mg daily and 100 mg at night, Depakote 500 mg at night and 250 mg twice a day, olanzapine 5 mg q. 4 hours p.r.n., trazodone 50 mg at night p.r.n. He is not having any side effects to medications. ASSESSMENT: Dementia, most likely Alzheimer's and vascular with behavior problems. PLAN: To continue with treatment. LENGTH OF STAY: [address]: Evelin TID: [id number]
[2021-05-09] MEDS: LEVOTHYROXINE 75 MCG TABLET PO SCH (05:30)
[2021-05-09 06:20] VITALS: BP 117/74
[2021-05-09] MEDS: FINASTERIDE 5 MG TABLET. PO SCH (08:33)
[2021-05-09] MEDS: DIVALPROEX 125 MG CAP.SPRINK PO SCH ×3 (08:33→19:59)
[2021-05-09] MEDS: QUEtiapine 50 MG TABLET. PO SCH (08:33)
[2021-05-09] MEDS: GABAPENTIN 400 MG CAPSULE. PO SCH ×3 (08:34→20:00)
[2021-05-09] MEDS: ALLOPURINOL 100 MG TABLET. PO SCH ×2 (08:34→20:00)
[2021-05-09] MEDS: MIRABEGRON 25 MG TAB.ER.24H PO SCH (08:34)
[2021-05-09] MEDS: MEMANTINE 10 MG TABLET. PO SCH ×2 (08:34→20:00)
[2021-05-09] MEDS: ASPIRIN CHEWABLE 81 MG TABLET. PO SCH (08:34)
[2021-05-09] MEDS: LISINOPRIL 20 MG TABLET PO SCH (08:37)
[2021-05-09] MEDS: ACETAMINOPHEN 325 MG TABLET PO PRN (08:37)
[2021-05-09] MEDS: PANTOPRAZOLE 40 MG TABLET. PO SCH (08:37)
[2021-05-09] MEDS: MULTIVITAMIN with MINERAL TABLET. PO SCH (08:37)
[2021-05-09] MEDS: DEXAMETHASONE 0.1% OPHTH SOLUTION 5ML BOTTLE. OU SCH ×2 (08:38→19:58)
[2021-05-09] MEDS: OMEGA-3 FATTY ACIDS/FISH OIL 1,000 MG CAPSULE. PO SCH (08:38)
[2021-05-09] MEDS: CEPHALEXIN 250 MG CAPSULE PO SCH ×2 (13:22→19:59)
[2021-05-09] MEDS: CYANOCOBALAMIN (VITAMIN B-12) 1,000 MCG TABLET. PO SCH (13:22)
[2021-05-09] MEDS: WARFARIN 5 MG TABLET. PO SCH (13:24)
[2021-05-09 16:13] VITALS: BP 94/60
[2021-05-09] MEDS: LACTOBACILLUS RHAMNOSUS GG 1 CAPSULE. PO SCH (19:59)
[2021-05-09] MEDS: DONEPEZIL HCL 10 MG TABLET PO SCH (20:00)
[2021-05-09] MEDS: ATORVASTATIN CALCIUM 20 MG TABLET PO SCH (20:00)
[2021-05-09] MEDS: QUEtiapine 100 MG TABLET. PO SCH (20:01)
[2021-05-10] MEDS: LEVOTHYROXINE 75 MCG TABLET PO SCH (05:12)
[2021-05-10 06:41] VITALS: BP 119/84
[2021-05-10] MEDS: ACETAMINOPHEN 325 MG TABLET PO PRN (08:30)
[2021-05-10] MEDS: MIRABEGRON 25 MG TAB.ER.24H PO SCH (08:30)
[2021-05-10] MEDS: CEPHALEXIN 250 MG CAPSULE PO SCH ×3 (08:30→20:01)
[2021-05-10] MEDS: ALLOPURINOL 100 MG TABLET. PO SCH ×2 (08:30→20:01)
[2021-05-10] MEDS: ASPIRIN CHEWABLE 81 MG TABLET. PO SCH (08:32)
[2021-05-10] MEDS: LACTOBACILLUS RHAMNOSUS GG 1 CAPSULE. PO SCH ×2 (08:32→20:01)
[2021-05-10] MEDS: GABAPENTIN 400 MG CAPSULE. PO SCH ×3 (08:32→20:01)
[2021-05-10] MEDS: PANTOPRAZOLE 40 MG TABLET. PO SCH (08:32)
[2021-05-10] MEDS: LISINOPRIL 20 MG TABLET PO SCH (08:33)
[2021-05-10] MEDS: FINASTERIDE 5 MG TABLET. PO SCH (08:33)
[2021-05-10] MEDS: MEMANTINE 10 MG TABLET. PO SCH ×2 (08:33→20:01)
[2021-05-10] MEDS: QUEtiapine 50 MG TABLET. PO SCH (08:33)
[2021-05-10] MEDS: DIVALPROEX 125 MG CAP.SPRINK PO SCH ×2 (08:33→13:21)
[2021-05-10] MEDS: MULTIVITAMIN with MINERAL TABLET. PO SCH (08:33)
[2021-05-10] MEDS: DEXAMETHASONE 0.1% OPHTH SOLUTION 5ML BOTTLE. OU SCH ×2 (08:34→20:01)
[2021-05-10] MEDS: CYANOCOBALAMIN (VITAMIN B-12) 1,000 MCG TABLET. PO SCH (13:20)
[2021-05-10] MEDS: WARFARIN 5 MG TABLET. PO SCH (15:34)
[2021-05-10 16:16] VITALS: BP 115/73
[2021-05-10] MEDS: QUEtiapine 100 MG TABLET. PO SCH (20:01)
[2021-05-10] MEDS: DONEPEZIL HCL 10 MG TABLET PO SCH (20:01)
[2021-05-10] MEDS: ATORVASTATIN CALCIUM 20 MG TABLET PO SCH (20:02)
--- NOTE | 2021-05-10 21:04 | PDOC ---
Exam Note: Brennen Note: Late entry for 05/09/2021. Please also refer to the separate dictated note~for this date of service dictated separately.~Patient seen individually. Discussed the patient with Nursing staff reviewed the chart.~Reviewed interim history and current functioning. Reviewed vital signs,~Labs/ Radiology~and current medic ations noted below. Continue current treatment with the changes noted in the dictated addendum note Assessment: Vital Signs/I&O: Vital Signs Date Time Temp Pulse Resp B/P (MAP) Pulse Ox O2 Delivery O2 Flow Rate FiO2 05/10/21 16:16 97.2 86 18 115/73 (87) 96 Room Air I & O 05/09/21 05/09/21 05/10/21 15:00 23:00 07:00 Intake Total 600 ml 360 ml Balance 600 ml 360 ml Labs: Laboratory Tests Test 05/10/21 07:29 05/10/21 12:12 Glucose (Fingerstick) 93 mg/dL (70-99) 132 mg/dL (70-99) H Current Medications: Meds: Laboratory Tests Test 05/10/21 07:29 05/10/21 12:12 Glucose (Fingerstick) 93 mg/dL 132 mg/dL Current Medications Medications (Trade) Dose Ordered Sig/Mary Route PRN Reason Start Time Stop Time Status Last Admin Dose Admin Allopurinol (Zyloprim) 100 mg BID PO 04/17/21 21:00 05/10/21 20:01 Aspirin (Aspirin Chewable) 81 mg DAILY PO 04/18/21 09:00 05/10/21 08:32 Donepezil HCl (Aricept) 10 mg HS PO 04/17/21 21:00 05/10/21 20:01 Finasteride (Proscar) 5 mg DAILY PO 04/18/21 09:00 05/10/21 08:33 Levothyroxine Sodium (Synthroid) 75 mcg DAILY06 PO 04/18/21 06:00 05/10/21 05:12 Memantine (Namenda) 10 mg BID PO 04/17/21 21:00 05/10/21 20:01 Mirabegron (Myrbetriq) 25 mg DAILY PO 04/18/21 09:00 05/10/21 08:30 Pantoprazole Sodium (Protonix) 40 mg DAILY PO 04/18/21 09:00 05/10/21 08:32 Quetiapine Fumarate (SEROquel) 25 mg BID PO 04/17/21 21:00 04/19/21 14:35 DC 04/19/21 08:59 Spironolactone (Aldactone) 25 mg Q48H PO 04/18/21 09:00 05/08/21 12:12 DC 05/08/21 09:20 Torsemide (Demadex) 40 mg DAILY PO 04/18/21 09:00 05/08/21 12:12 DC 05/08/21 09:21 Atorvastatin Calcium (Lipitor) 80 mg QHS PO 04/17/21 21:00 05/10/21 20:02 Lisinopril (Prinivil) 40 mg DAILY PO 04/18/21 09:00 05/10/21 08:33 Cyanocobalamin (Vitamin B-12) 1,000 mcg 1200 PO 04/18/21 12:00 05/10/21 13:20 Gabapentin (Neurontin) 400 mg TID PO 04/17/21 14:30 05/10/21 20:01 Multivitamins/ Calcium (Thera-M Plus) 1 tab DAILY PO 04/18/21 09:00 05/10/21 08:33 Fish Oil (Fish Oil) 1,000 mg DAILY PO 04/18/21 09:00 05/09/21 12:11 DC 05/08/21 09:21 Dexamethasone (Maxidex) 1 drop BID OU 04/17/21 21:00 05/10/21 20:01 Acetaminophen (Tylenol) 650 mg PRN Q6HRS PRN PO MILD PAIN / TEMP > 100.3'F 04/17/21 14:00 05/10/21 08:30 Multi-Ingredient Ointment (Analgesic [place]) 1 mechelle PRN QID PRN TP MUSCLE PAIN 04/17/21 14:00 Al Hydroxide/Mg Hydroxide (Mylanta Plus Xs) 15 ml PRN AFTMEALHC PRN PO DYSPEPSIA 04/17/21 14:00 05/08/21 10:20 Magnesium Hydroxide (Milk Of Magnesia) 2,400 mg PRN QHS PRN PO CONSTIPATION 04/17/21 14:00 05/01/21 19:57 Olanzapine (ZyPREXA) 2.5 mg PRN Q2HRS PRN PO ANXIETY / AGITATION 12/17/21 14:00 04/23/21 15:57 DC 04/23/21 12:49 Influenza Virus Vaccine Quadrival (Flulaval Quad Syringe) 0.5 ml ONCE ONCE VAX IM 04/18/21 09:00 04/18/21 09:01 DC 04/18/21 09:00 Warfarin Sodium (Coumadin) 5 mg QMWF PO 04/20/21 16:00 04/21/21 18:22 DC 04/20/21 16:53 Warfarin Sodium (Coumadin) 7.5 mg QSUTUTH PO 04/19/21 16:00 04/21/21 18:22 DC 04/21/21 16:42 Warfarin Sodium (Coumadin) 7.5 mg QSA PO 04/18/21 16:00 04/21/21 18:22 DC 04/18/21 16:00 Warfarin Sodium (Coumadin Per Physician) 1 each PRN DAILY PRN MC SEE COMMENTS 04/17/21 23:30 Quetiapine Fumarate (SEROquel) 25 mg PRN Q6HRS PRN PO ANXIETY / AGITATION 04/18/21 10:45 04/23/21 15:57 DC 04/19/21 01:33 Quetiapine Fumarate (SEROquel) 25 mg QID PO 04/19/21 17:00 04/21/21 13:59 DC 04/21/21 12:00 Trazodone HCl (Desyrel) 50 mg PRN QHS PRN PO insomnia 04/19/21 19:30 05/08/21 22:04 Quetiapine Fumarate (SEROquel) 25 mg 0900,1300,1700 PO 04/21/21 17:00 05/04/21 16:42 DC 05/04/21 16:33 Quetiapine Fumarate (SEROquel) 50 mg QHS PO 04/21/21 21:00 05/04/21 16:42 DC 05/03/21 19:56 Divalproex Sodium (Depakote Sprinkles) 125 mg BID PO 04/21/21 21:00 04/22/21 15:09 DC 04/22/21 08:28 Dextrose (Dextrose 50%-Water Syringe) 12.5 gm PRN Q15MIN PRN IV SEE COMMENTS 04/21/21 18:30 Warfarin Sodium (Coumadin) 7.5 mg DAILY16 PO 04/22/21 16:00 04/25/21 14:16 DC 04/24/21 15:16 Divalproex Sodium (Depakote Sprinkles) 250 mg BID PO 04/22/21 21:00 04/26/21 14:45 DC 04/26/21 07:51 Quetiapine Fumarate (SEROquel) 50 mg PRN Q6HRS PRN PO ANXIETY / AGITATION 04/23/21 16:00 05/04/21 16:42 DC 05/04/21 14:30 Nystatin (Nystop) 1 mechelle PRN BID PRN TP TO BILATERAL GROINS 04/26/21 03:00 Divalproex Sodium (Depakote Sprinkles) 250 mg 0900,1300 PO 04/27/21 09:00 05/10/21 18:47 DC 05/10/21 13:21 Divalproex Sodium (Depakote Sprinkles) 375 mg HS PO 04/27/21 21:00 04/26/21 19:37 DC Divalproex Sodium (Depakote Sprinkles) 375 mg HS PO 04/26/21 21:00 05/04/21 16:42 DC 05/03/21 19:57 Warfarin Sodium (Coumadin) 5 mg DAILY16 PO 04/27/21 16:00 05/10/21 15:34 Divalproex Sodium (Depakote Sprinkles) 500 mg HS PO 05/04/21 21:00 05/10/21 18:47 DC 05/09/21 19:59 Quetiapine Fumarate (SEROquel) 50 mg BID PO 05/04/21 21:00 05/06/21 16:16 DC 05/06/21 08:06 Olanzapine (ZyPREXA ZYDIS) 5 mg PRN Q4HRS PRN PO PSYCHOSIS 05/04/21 16:45 05/10/21 05:11 Quetiapine Fumarate (SEROquel) 50 mg DAILY PO 05/07/21 09:00 05/10/21 08:33 Quetiapine Fumarate (SEROquel) 100 mg HS PO 05/06/21 21:00 05/10/21 20:01 Cephalexin HCl (Keflex) 500 mg TID PO 05/09/21 14:00 05/16/21 13:59 05/10/21 20:01 Lactobacillus Rhamnosus (Culturelle) 1 cap BID PO 05/09/21 21:00 05/10/21 20:01 I have reviewed the current psychotropics carefully including drug interactions. Risk benefit ratio favors no change other than as noted in my dictated progress note. Diagnosis: Problems: (1) Major neurocognitive disorder (2) Dementia in Alzheimer's disease with delusions (3) Dementia in Alzheimer's disease with depression (4) Dementia of the Alzheimer's type with early onset with behavioral disturbance (5) Dementia, vascular, with delusions (6) Dementia, vascular, with depression (7) Anxiety disorder, unspecified (8) Impulse control disorder, unspecified JAE HERNANDEZ MD May 10, 2021 21:04
--- NOTE | 2021-05-10 21:14 | PDOC ---
Exam Note: Brennen Note: Please also refer to the separate dictated note~for this date of service dictated separately.~Patient seen individually. Discussed the patient with Nursing staff reviewed the chart.~Reviewed interim history and current functioning. Reviewed vital signs,~Labs/ Radiology~and current medications noted below. Continue current treatment with the changes noted in the dictated addendum note Assessment: Vital Signs/I&O: Vital Signs Date Time Temp Pulse Resp B/P (MAP) Pulse Ox O2 Delivery O2 Flow Rate FiO2 05/10/21 16:16 97.2 86 18 115/73 (87) 96 Room Air I & O 05/09/21 05/09/21 05/10/21 15:00 23:00 07:00 Intake Total 600 ml 360 ml Balance 600 ml 360 ml Labs: Laboratory Tests Test 05/10/21 07:29 05/10/21 12:12 Glucose (Fingerstick) 93 mg/dL (70-99) 132 mg/dL (70-99) H Current Medications: Meds: Laboratory Tests Test 05/10/21 07:29 05/10/21 12:12 Glucose (Fingerstick) 93 mg/dL 132 mg/dL Current Medications Medications (Trade) Dose Ordered Sig/Mary Route PRN Reason Start Time Stop Time Status Last Admin Dose Admin Allopurinol (Zyloprim) 100 mg BID PO 04/17/21 21:00 05/10/21 20:01 Aspirin (Aspirin Chewable) 81 mg DAILY PO 04/18/21 09:00 05/10/21 08:32 Donepezil HCl (Aricept) 10 mg HS PO 04/17/21 21:00 05/10/21 20:01 Finasteride (Proscar) 5 mg DAILY PO 04/18/21 09:00 05/10/21 08:33 Levothyroxine Sodium (Synthroid) 75 mcg DAILY06 PO 04/18/21 06:00 05/10/21 05:12 Memantine (Namenda) 10 mg BID PO 04/17/21 21:00 05/10/21 20:01 Mirabegron (Myrbetriq) 25 mg DAILY PO 04/18/21 09:00 05/10/21 08:30 Pantoprazole Sodium (Protonix) 40 mg DAILY PO 04/18/21 09:00 05/10/21 08:32 Quetiapine Fumarate (SEROquel) 25 mg BID PO 04/17/21 21:00 04/19/21 14:35 DC 04/19/21 08:59 Spironolactone (Aldactone) 25 mg Q48H PO 04/18/21 09:00 05/08/21 12:12 DC 05/08/21 09:20 Torsemide (Demadex) 40 mg DAILY PO 04/18/21 09:00 05/08/21 12:12 DC 05/08/21 09:21 Atorvastatin Calcium (Lipitor) 80 mg QHS PO 04/17/21 21:00 05/10/21 20:02 Lisinopril (Prinivil) 40 mg DAILY PO 04/18/21 09:00 05/10/21 08:33 Cyanocobalamin (Vitamin B-12) 1,000 mcg 1200 PO 04/18/21 12:00 05/10/21 13:20 Gabapentin (Neurontin) 400 mg TID PO 04/17/21 14:30 05/10/21 20:01 Multivitamins/ Calcium (Thera-M Plus) 1 tab DAILY PO 04/18/21 09:00 05/10/21 08:33 Fish Oil (Fish Oil) 1,000 mg DAILY PO 04/18/21 09:00 05/09/21 12:11 DC 05/08/21 09:21 Dexamethasone (Maxidex) 1 drop BID OU 04/17/21 21:00 05/10/21 20:01 Acetaminophen (Tylenol) 650 mg PRN Q6HRS PRN PO MILD PAIN / TEMP > 100.3'F 04/17/21 14:00 05/10/21 08:30 Multi-Ingredient Ointment (Analgesic [place]) 1 mechelle PRN QID PRN TP MUSCLE PAIN 04/17/21 14:00 Al Hydroxide/Mg Hydroxide (Mylanta Plus Xs) 15 ml PRN AFTMEALHC PRN PO DYSPEPSIA 04/17/21 14:00 05/08/21 10:20 Magnesium Hydroxide (Milk Of Magnesia) 2,400 mg PRN QHS PRN PO CONSTIPATION 04/17/21 14:00 05/01/21 19:57 Olanzapine (ZyPREXA) 2.5 mg PRN Q2HRS PRN PO ANXIETY / AGITATION 04/17/21 14:00 04/23/21 15:57 DC 04/23/21 12:49 Influenza Virus Vaccine Quadrival (Flulaval Quad [id number] Syringe) 0.5 ml ONCE ONCE VAX IM 04/18/21 09:00 04/18/21 09:01 DC 04/18/21 09:00 Warfarin Sodium (Coumadin) 5 mg QMWF PO 04/20/21 16:00 04/21/21 18:22 DC 04/20/21 16:53 Warfarin Sodium (Coumadin) 7.5 mg QSUTUTH PO 04/19/21 16:00 04/21/21 18:22 DC 04/21/21 16:42 Warfarin Sodium (Coumadin) 7.5 mg QSA PO 04/18/21 16:00 04/21/21 18:22 DC 04/18/21 16:00 Warfarin Sodium (Coumadin Per Physician) 1 each PRN DAILY PRN MC SEE COMMENTS 04/17/21 23:30 Quetiapine Fumarate (SEROquel) 25 mg PRN Q6HRS PRN PO ANXIETY / AGITATION 04/18/21 10:45 04/23/21 15:57 DC 04/19/21 01:33 Quetiapine Fumarate (SEROquel) 25 mg QID PO 04/19/21 17:00 04/21/21 13:59 DC 04/21/21 12:00 Trazodone HCl (Desyrel) 50 mg PRN QHS PRN PO insomnia 04/19/21 19:30 05/08/21 22:04 Quetiapine Fumarate (SEROquel) 25 mg 0900,1300,1700 PO 04/21/21 17:00 05/04/21 16:42 DC 05/04/21 16:33 Quetiapine Fumarate (SEROquel) 50 mg QHS PO 04/21/21 21:00 05/04/21 16:42 DC 05/03/21 19:56 Divalproex Sodium (Depakote Sprinkles) 125 mg BID PO 04/21/21 21:00 04/22/21 15:09 DC 04/22/21 08:28 Dextrose (Dextrose 50%-Water Syringe) 12.5 gm PRN Q15MIN PRN IV SEE COMMENTS 04/21/21 18:30 Warfarin Sodium (Coumadin) 7.5 mg DAILY16 PO 04/22/21 16:00 04/25/21 14:16 DC 04/24/21 15:16 Divalproex Sodium (Depakote Sprinkles) 250 mg BID PO 04/22/21 21:00 04/26/21 14:45 DC 04/26/21 07:51 Quetiapine Fumarate (SEROquel) 50 mg PRN Q6HRS PRN PO ANXIETY / AGITATION 04/23/21 16:00 05/04/21 16:42 DC 05/04/21 14:30 Nystatin (Nystop) 1 mechelle PRN BID PRN TP TO BILATERAL GROINS 04/26/21 03:00 Divalproex Sodium (Depakote Sprinkles) 250 mg 0900,1300 PO 04/27/21 09:00 05/10/21 18:47 DC 05/10/21 13:21 Divalproex Sodium (Depakote Sprinkles) 375 mg HS PO 04/27/21 21:00 04/26/21 19:37 DC Divalproex Sodium (Depakote Sprinkles) 375 mg HS PO 04/26/21 21:00 05/04/21 16:42 DC 05/03/21 19:57 Warfarin Sodium (Coumadin) 5 mg DAILY16 PO 04/27/21 16:00 05/10/21 15:34 Divalproex Sodium (Depakote Sprinkles) 500 mg HS PO 05/04/21 21:00 05/10/21 18:47 DC 05/09/21 19:59 Quetiapine Fumarate (SEROquel) 50 mg BID PO 05/04/21 21:00 05/06/21 16:16 DC 05/06/21 08:06 Olanzapine (ZyPREXA ZYDIS) 5 mg PRN Q4HRS PRN PO PSYCHOSIS 05/04/21 16:45 05/10/21 05:11 Quetiapine Fumarate (SEROquel) 50 mg DAILY PO 05/07/21 09:00 05/10/21 08:33 Quetiapine Fumarate (SEROquel) 100 mg HS PO 05/06/21 21:00 05/10/21 20:01 Cephalexin HCl (Keflex) 500 mg TID PO 05/09/21 14:00 05/16/21 13:59 05/10/21 20:01 Lactobacillus Rhamnosus (Culturelle) 1 cap BID PO 05/09/21 21:00 05/10/21 20:01 I have reviewed the current psychotropics carefully including drug interactions. Risk benefit ratio favors no change other than as noted in my dictated progress note. 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
[2021-05-11] MEDS: LEVOTHYROXINE 75 MCG TABLET PO SCH (06:21)
[2021-05-11] MEDS: MAGNESIUM HYDROXIDE 2,400 MG/30 ML ORAL.SUSP. PO PRN (06:21)
[2021-05-11 06:40] VITALS: BP 164/52
[2021-05-11 06:55] LABS: CALCIUM 8.4 mg/dL (8.5-10.1); CREATININE 2.3 mg/dL (0.7-1.3); GFR 27.2; POTASSIUM 4.5 mmol/L (3.5-5.1)
--- NOTE | 2021-05-11 07:23 | PDOC ---
Exam Note: Brennen Note: This note is a late entry for 05/09/2021 covers elements not covered in my initial note. Subjective: The patient was seen on telehealth rounds in the evening of 05/09/2021 due to COVID-19 exposure on our unit and half the patients have been COVID positive and transferred to the Medical/Surgical Floor. Discussed with Alix BEE and reviewed the chart. Also discussed the patient with Dr. Palma who covered for me for the past 2 weeks. Reviewed the patients history, diagnoses, progress, work-up, labs etc. The patient slept 6 hours previous night. He was living at home where his was taking care of him despite his progressive dementia. His then had a fall, fractured her ankle and was hospitalized and the patient could not be managed at home. 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 He has been getting more confused, agitated. He has 5 children but does not remember them. Per nursing report he gets extremely agitated and uses profanities which are rather colorful per nursing report and tapestry of profanities. He has been confined to his room which is extremely difficult for him because of COVID exposure on our unit and half the patients have been COVID positive and transferred to the Medical/Surgical Floor. Review of Systems: Ambulation impaired, in wheelchair. No CV, , pulmonary, eye, ENT system symptoms on review. Reliability poor. Mental Status Exam: The patient is oriented to himself. Insight and judgment, recent and remote memory, attention and concentration, fund of knowledge is poor consistent with his diagnoses. Laboratory Data: Reviewed. Impression: Major neurocognitive disorder, Alzheimer, vascular with delusion, depression, behavioral disturbance. Anxiety disorder unspecified. Impulse control disorder unspecified. Plan: I have carefully reviewed the patients current psychotropics. Reviewed drug interactions and risk-benefit ratio. He is currently on Seroquel 50 mg a.m., 100 mg h.s., Aricept 10 mg h.s., gabapentin 400 mg t.i.d., Namenda 10 mg b.i.d., trazodone 50 mg h.s. may repeat x1 for insomnia, Depakote 250 mg b.i.d., 500 mg h.s. Level is 62 therapeutic at this dosage, Zyprexa p.r.n. maximum 15 mg in 24 hours. We will adjust his psychotropics post further baseline assessment. Assessment: Vital Signs/I&O: Vital Signs Date Time Temp Pulse Resp B/P (MAP) Pulse Ox O2 Delivery O2 Flow Rate FiO2 05/11/21 06:40 98.7 90 18 164/52 (89) 94 05/10/21 16:16 Room Air I & O 05/10/21 05/10/21 05/11/21 15:00 23:00 07:00 Intake Total 780 ml 560 ml Balance 780 ml 560 ml Labs: Laboratory Tests Test 05/10/21 07:29 05/10/21 12:12 05/11/21 06:26 Glucose (Fingerstick) 93 mg/dL (70-99) 132 mg/dL (70-99) H Sodium Level 153 mmol/L (136-145) H Potassium Level 4.5 mmol/L (3.5-5.1) Chloride Level 115 mmol/L (98-107) H Carbon Dioxide Level 25 mmol/L (21-32) Anion Gap 13 (6-14) Blood Urea Nitrogen 52 mg/dL (8-26) H Creatinine 2.3 mg/dL (0.7-1.3) H Estimated GFR (Cockcroft-Gault) 27.2 Glucose Level 107 mg/dL (70-99) H Calcium Level 8.4 mg/dL (8.5-10.1) L Current Medications: Meds: Laboratory Tests Test 05/10/21 07:29 05/10/21 12:12 05/11/21 06:26 Glucose (Fingerstick) 93 mg/dL 132 mg/dL Sodium Level 153 mmol/L Potassium Level 4.5 mmol/L Chloride Level 115 mmol/L Carbon Dioxide Level 25 mmol/L Anion Gap 13 Blood Urea Nitrogen 52 mg/dL Creatinine 2.3 mg/dL Estimated GFR (Cockcroft-Gault) 27.2 Glucose Level 107 mg/dL Calcium Level 8.4 mg/dL Current Medications Medications (Trade) Dose Ordered Sig/Mary Route PRN Reason Start Time Stop Time Status Last Admin Dose Admin Allopurinol (Zyloprim) 100 mg BID PO 04/17/21 21:00 05/10/21 20:01 Aspirin (Aspirin Chewable) 81 mg DAILY PO 04/18/21 09:00 05/10/21 08:32 Donepezil HCl (Aricept) 10 mg HS PO 04/17/21 21:00 05/10/21 20:01 Finasteride (Proscar) 5 mg DAILY PO 04/18/21 09:00 05/10/21 08:33 Levothyroxine Sodium (Synthroid) 75 mcg DAILY06 PO 04/18/21 06:00 05/11/21 06:21 Memantine (Namenda) 10 mg BID PO 04/17/21 21:00 05/10/21 20:01 Mirabegron (Myrbetriq) 25 mg DAILY PO 04/18/21 09:00 05/10/21 08:30 Pantoprazole Sodium (Protonix) 40 mg DAILY PO 04/18/21 09:00 05/10/21 08:32 Quetiapine Fumarate (SEROquel) 25 mg BID PO 04/17/21 21:00 04/19/21 14:35 DC 04/19/21 08:59 Spironolactone (Aldactone) 25 mg Q48H PO 04/18/21 09:00 05/08/21 12:12 DC 05/08/21 09:20 Torsemide (Demadex) 40 mg DAILY PO 04/18/21 09:00 05/08/21 12:12 DC 05/08/21 09:21 Atorvastatin Calcium (Lipitor) 80 mg QHS PO 04/17/21 21:00 05/10/21 20:02 Lisinopril (Prinivil) 40 mg DAILY PO 04/18/21 09:00 05/10/21 08:33 Cyanocobalamin (Vitamin B-12) 1,000 mcg 1200 PO 04/18/21 12:00 05/10/21 13:20 Gabapentin (Neurontin) 400 mg TID PO 04/17/21 14:30 05/10/21 20:01 Multivitamins/ Calcium (Thera-M Plus) 1 tab DAILY PO 04/18/21 09:00 05/10/21 08:33 Fish Oil (Fish Oil) 1,000 mg DAILY PO 04/18/21 09:00 05/09/21 12:11 DC 05/08/21 09:21 Dexamethasone (Maxidex) 1 drop BID OU 04/17/21 21:00 05/10/21 20:01 Acetaminophen (Tylenol) 650 mg PRN Q6HRS PRN PO MILD PAIN / TEMP > 100.3'F 04/17/21 14:00 05/10/21 08:30 Multi-Ingredient Ointment (Analgesic [place]) 1 mechelle PRN QID PRN TP MUSCLE PAIN 04/17/21 14:00 Al Hydroxide/Mg Hydroxide (Mylanta Plus Xs) 15 ml PRN AFTMEALHC PRN PO DYSPEPSIA 04/17/21 14:00 05/08/21 10:20 Magnesium Hydroxide (Milk Of Magnesia) 2,400 mg PRN QHS PRN PO CONSTIPATION 04/17/21 14:00 05/11/21 06:21 Olanzapine (ZyPREXA) 2.5 mg PRN Q2HRS PRN PO ANXIETY / AGITATION 04/17/21 14:00 04/23/21 15:57 DC 04/23/21 12:49 Influenza Virus Vaccine Quadrival (Flulaval Quad [id number] Syringe) 0.5 ml ONCE ONCE VAX IM 04/18/21 09:00 04/18/21 09:01 DC 04/18/21 09:00 Warfarin Sodium (Coumadin) 5 mg QMWF PO 04/20/21 16:00 04/21/21 18:22 DC 04/20/21 16:53 Warfarin Sodium (Coumadin) 7.5 mg QSUTUTH PO 04/19/21 16:00 04/21/21 18:22 DC 04/21/21 16:42 Warfarin Sodium (Coumadin) 7.5 mg QSA PO 04/18/21 16:00 04/21/21 18:22 DC 04/18/21 16:00 Warfarin Sodium (Coumadin Per Physician) 1 each PRN DAILY PRN MC SEE COMMENTS 04/17/21 23:30 Quetiapine Fumarate (SEROquel) 25 mg PRN Q6HRS PRN PO ANXIETY / AGITATION 04/18/21 10:45 04/23/21 15:57 DC 04/19/21 01:33 Quetiapine Fumarate (SEROquel) 25 mg QID PO 04/19/21 17:00 04/21/21 13:59 DC 04/21/21 12:00 Trazodone HCl (Desyrel) 50 mg PRN QHS PRN PO insomnia 04/19/21 19:30 05/08/21 22:04 Quetiapine Fumarate (SEROquel) 25 mg 0900,1300,1700 PO 04/21/21 17:00 05/04/21 16:42 DC 05/04/21 16:33 Quetiapine Fumarate (SEROquel) 50 mg QHS PO 04/21/21 21:00 05/04/21 16:42 DC 05/03/21 19:56 Divalproex Sodium (Depakote Sprinkles) 125 mg BID PO 04/21/21 21:00 04/22/21 15:09 DC 04/22/21 08:28 Dextrose (Dextrose 50%-Water Syringe) 12.5 gm PRN Q15MIN PRN IV SEE COMMENTS 04/21/21 18:30 Warfarin Sodium (Coumadin) 7.5 mg DAILY16 PO 04/22/21 16:00 04/25/21 14:16 DC 04/24/21 15:16 Divalproex Sodium (Depakote Sprinkles) 250 mg BID PO 04/22/21 21:00 04/26/21 14:45 DC 04/26/21 07:51 Quetiapine Fumarate (SEROquel) 50 mg PRN Q6HRS PRN PO ANXIETY / AGITATION 04/23/21 16:00 05/04/21 16:42 DC 05/04/21 14:30 Nystatin (Nystop) 1 mechelle PRN BID PRN TP TO BILATERAL GROINS 04/26/21 03:00 Divalproex Sodium (Depakote Sprinkles) 250 mg 0900,1300 PO 04/27/21 09:00 05/10/21 18:47 DC 05/10/21 13:21 Divalproex Sodium (Depakote Sprinkles) 375 mg HS PO 04/27/21 21:00 04/26/21 19:37 DC Divalproex Sodium (Depakote Sprinkles) 375 mg HS PO 04/26/21 21:00 05/04/21 16:42 DC 05/03/21 19:57 Warfarin Sodium (Coumadin) 5 mg DAILY16 PO 04/27/21 16:00 05/10/21 15:34 Divalproex Sodium (Depakote Sprinkles) 500 mg HS PO 05/04/21 21:00 05/10/21 18:47 DC 05/09/21 19:59 Quetiapine Fumarate (SEROquel) 50 mg BID PO 05/04/21 21:00 05/06/21 16:16 DC 05/06/21 08:06 Olanzapine (ZyPREXA ZYDIS) 5 mg PRN Q4HRS PRN PO PSYCHOSIS 05/04/21 16:45 05/10/21 05:11 Quetiapine Fumarate (SEROquel) 50 mg DAILY PO 05/07/21 09:00 05/10/21 08:33 Quetiapine Fumarate (SEROquel) 100 mg HS PO 05/06/21 21:00 05/10/21 20:01 Cephalexin HCl (Keflex) 500 mg TID PO 05/09/21 14:00 05/16/21 13:59 05/10/21 20:01 Lactobacillus Rhamnosus (Culturelle) 1 cap BID PO 05/09/21 21:00 05/10/21 20:01 I have reviewed the current psychotropics carefully including drug interactions. Risk benefit ratio favors no change other than as noted in my dictated progress note. 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
[2021-05-11] MEDS: CEPHALEXIN 250 MG CAPSULE PO SCH ×3 (09:41→20:45)
[2021-05-11] MEDS: MULTIVITAMIN with MINERAL TABLET. PO SCH (09:41)
[2021-05-11] MEDS: LACTOBACILLUS RHAMNOSUS GG 1 CAPSULE. PO SCH ×2 (09:41→20:46)
[2021-05-11] MEDS: MEMANTINE 10 MG TABLET. PO SCH (09:41)
[2021-05-11] MEDS: FINASTERIDE 5 MG TABLET. PO SCH (09:41)
[2021-05-11] MEDS: ASPIRIN CHEWABLE 81 MG TABLET. PO SCH (09:42)
[2021-05-11] MEDS: LISINOPRIL 20 MG TABLET PO SCH (09:42)
[2021-05-11] MEDS: MIRABEGRON 25 MG TAB.ER.24H PO SCH (09:42)
[2021-05-11] MEDS: GABAPENTIN 400 MG CAPSULE. PO SCH ×3 (09:42→20:46)
[2021-05-11] MEDS: DEXAMETHASONE 0.1% OPHTH SOLUTION 5ML BOTTLE. OU SCH ×2 (09:42→20:45)
[2021-05-11] MEDS: QUEtiapine 50 MG TABLET. PO SCH (09:42)
[2021-05-11] MEDS: PANTOPRAZOLE 40 MG TABLET. PO SCH (09:42)
[2021-05-11] MEDS: ALLOPURINOL 100 MG TABLET. PO SCH ×2 (09:43→20:46)
[2021-05-11] MEDS: CYANOCOBALAMIN (VITAMIN B-12) 1,000 MCG TABLET. PO SCH (12:56)
[2021-05-11 15:42] VITALS: BP 126/91
[2021-05-11] MEDS: WARFARIN 5 MG TABLET. PO SCH (16:36)
[2021-05-11] MEDS: ATORVASTATIN CALCIUM 20 MG TABLET PO SCH (20:46)
[2021-05-11] MEDS: QUEtiapine 100 MG TABLET. PO SCH (20:46)
--- NOTE | 2021-05-11 20:58 | PDOC ---
Exam Note: Brennen Note: Please also refer to the separate dictated note~for this date of service dictated separately.~Patient seen individually. Discussed the patient with Nursing staff reviewed the chart.~Reviewed interim history and current functioning. Reviewed vital signs,~Labs/ Radiology~and current medications noted below. Continue current treatment with the changes noted in the dictated addendum note Assessment: Vital Signs/I&O: Vital Signs Date Time Temp Pulse Resp B/P (MAP) Pulse Ox O2 Delivery O2 Flow Rate FiO2 05/11/21 15:42 98.7 88 16 126/91 (103) 94 Room Air I & O 05/10/21 05/10/21 05/11/21 15:00 23:00 07:00 Intake Total 780 ml 560 ml Balance 780 ml 560 ml Labs: Laboratory Tests Test 05/11/21 06:26 Sodium Level 153 mmol/L (136-145) H Potassium Level 4.5 mmol/L (3.5-5.1) Chloride Level 115 mmol/L (98-107) H Carbon Dioxide Level 25 mmol/L (21-32) Anion Gap 13 (6-14) Blood Urea Nitrogen 52 mg/dL (8-26) H Creatinine 2.3 mg/dL (0.7-1.3) H Estimated GFR (Cockcroft-Gault) 27.2 Glucose Level 107 mg/dL (70-99) H Calcium Level 8.4 mg/dL (8.5-10.1) L Current Medications: Meds: Laboratory Tests Test 05/11/21 06:26 Sodium Level 153 mmol/L Potassium Level 4.5 mmol/L Chloride Level 115 mmol/L Carbon Dioxide Level 25 mmol/L Anion Gap 13 Blood Urea Nitrogen 52 mg/dL Creatinine 2.3 mg/dL Estimated GFR (Cockcroft-Gault) 27.2 Glucose Level 107 mg/dL Calcium Level 8.4 mg/dL Current Medications Medications (Trade) Dose Ordered Sig/Mary Route PRN Reason Start Time Stop Time Status Last Admin Dose Admin Allopurinol (Zyloprim) 100 mg BID PO 04/17/21 21:00 05/11/21 20:46 Aspirin (Aspirin Chewable) 81 mg DAILY PO 04/18/21 09:00 05/11/21 09:42 Donepezil HCl (Aricept) 10 mg HS PO 04/17/21 21:00 05/11/21 11:39 DC 05/10/21 20:01 Finasteride (Proscar) 5 mg DAILY PO 04/18/21 09:00 05/11/21 09:41 Levothyroxine Sodium (Synthroid) 75 mcg DAILY06 PO 04/18/21 06:00 05/11/21 06:21 Memantine (Namenda) 10 mg BID PO 04/17/21 21:00 05/11/21 11:39 DC 05/11/21 09:41 Mirabegron (Myrbetriq) 25 mg DAILY PO 04/18/21 09:00 05/11/21 09:42 Pantoprazole Sodium (Protonix) 40 mg DAILY PO 04/18/21 09:00 05/11/21 09:42 Quetiapine Fumarate (SEROquel) 25 mg BID PO 04/17/21 21:00 04/19/21 14:35 DC 04/19/21 08:59 Spironolactone (Aldactone) 25 mg Q48H PO 04/18/21 09:00 05/08/21 12:12 DC 05/08/21 09:20 Torsemide (Demadex) 40 mg DAILY PO 04/18/21 09:00 05/08/21 12:12 DC 05/08/21 09:21 Atorvastatin Calcium (Lipitor) 80 mg QHS PO 04/17/21 21:00 05/11/21 20:46 Lisinopril (Prinivil) 40 mg DAILY PO 04/18/21 09:00 05/11/21 09:42 Cyanocobalamin (Vitamin B-12) 1,000 mcg 1200 PO 04/18/21 12:00 05/11/21 12:56 Gabapentin (Neurontin) 400 mg TID PO 04/17/21 14:30 05/11/21 20:46 Multivitamins/ Calcium (Thera-M Plus) 1 tab DAILY PO 04/18/21 09:00 05/11/21 09:41 Fish Oil (Fish Oil) 1,000 mg DAILY PO 04/18/21 09:00 05/09/21 12:11 DC 05/08/21 09:21 Dexamethasone (Maxidex) 1 drop BID OU 04/17/21 21:00 05/11/21 20:45 Acetaminophen (Tylenol) 650 mg PRN Q6HRS PRN PO MILD PAIN / TEMP > 100.3'F 04/17/21 14:00 05/10/21 08:30 Multi-Ingredient Ointment (Analgesic [place]) 1 mechelle PRN QID PRN TP MUSCLE PAIN 04/17/21 14:00 Al Hydroxide/Mg Hydroxide (Mylanta Plus Xs) 15 ml PRN AFTMEALHC PRN PO DYSPEPSIA 04/17/21 14:00 05/08/21 10:20 Magnesium Hydroxide (Milk Of Magnesia) 2,400 mg PRN QHS PRN PO CONSTIPATION 04/17/21 14:00 05/11/21 06:21 Olanzapine (ZyPREXA) 2.5 mg PRN Q2HRS PRN PO ANXIETY / AGITATION 04/17/21 14:00 04/23/21 15:57 DC 04/23/21 12:49 Influenza Virus Vaccine Quadrival (Flulaval Quad [id number] Syringe) 0.5 ml ONCE ONCE VAX IM 04/18/21 09:00 04/18/21 09:01 DC 04/18/21 09:00 Warfarin Sodium (Coumadin) 5 mg QMWF PO 04/20/21 16:00 04/21/21 18:22 DC 04/20/21 16:53 Warfarin Sodium (Coumadin) 7.5 mg QSUTUTH PO 04/19/21 16:00 04/21/21 18:22 DC 04/21/21 16:42 Warfarin Sodium (Coumadin) 7.5 mg QSA PO 04/18/21 16:00 04/21/21 18:22 DC 04/18/21 16:00 Warfarin Sodium (Coumadin Per Physician) 1 each PRN DAILY PRN MC SEE COMMENTS 04/17/21 23:30 Quetiapine Fumarate (SEROquel) 25 mg PRN Q6HRS PRN PO ANXIETY / AGITATION 04/18/21 10:45 04/23/21 15:57 DC 04/19/21 01:33 Quetiapine Fumarate (SEROquel) 25 mg QID PO 04/19/21 17:00 04/21/21 13:59 DC 04/21/21 12:00 Trazodone HCl (Desyrel) 50 mg PRN QHS PRN PO insomnia 04/19/21 19:30 05/08/21 22:04 Quetiapine Fumarate (SEROquel) 25 mg 0900,1300,1700 PO 04/21/21 17:00 05/04/21 16:42 DC 05/04/21 16:33 Quetiapine Fumarate (SEROquel) 50 mg QHS PO 04/21/21 21:00 05/04/21 16:42 DC 05/03/21 19:56 Divalproex Sodium (Depakote Sprinkles) 125 mg BID PO 04/21/21 21:00 04/22/21 15:09 DC 04/22/21 08:28 Dextrose (Dextrose 50%-Water Syringe) 12.5 gm PRN Q15MIN PRN IV SEE COMMENTS 04/21/21 18:30 Warfarin Sodium (Coumadin) 7.5 mg DAILY16 PO 04/22/21 16:00 04/25/21 14:16 DC 04/24/21 15:16 Divalproex Sodium (Depakote Sprinkles) 250 mg BID PO 04/22/21 21:00 04/26/21 14:45 DC 04/26/21 07:51 Quetiapine Fumarate (SEROquel) 50 mg PRN Q6HRS PRN PO ANXIETY / AGITATION 04/23/21 16:00 05/04/21 16:42 DC 05/04/21 14:30 Nystatin (Nystop) 1 mechelle PRN BID PRN TP TO BILATERAL GROINS 04/26/21 03:00 05/11/21 20:45 Divalproex Sodium (Depakote Sprinkles) 250 mg 0900,1300 PO 04/27/21 09:00 05/10/21 18:47 DC 05/10/21 13:21 Divalproex Sodium (Depakote Sprinkles) 375 mg HS PO 04/27/21 21:00 04/26/21 19:37 DC Divalproex Sodium (Depakote Sprinkles) 375 mg HS PO 04/26/21 21:00 05/04/21 16:42 DC 05/03/21 19:57 Warfarin Sodium (Coumadin) 5 mg DAILY16 PO 04/27/21 16:00 05/11/21 16:36 Divalproex Sodium (Depakote Sprinkles) 500 mg HS PO 05/04/21 21:00 05/10/21 18:47 DC 05/09/21 19:59 Quetiapine Fumarate (SEROquel) 50 mg BID PO 05/04/21 21:00 05/06/21 16:16 DC 05/06/21 08:06 Olanzapine (ZyPREXA ZYDIS) 5 mg PRN Q4HRS PRN PO PSYCHOSIS 05/04/21 16:45 05/10/21 05:11 Quetiapine Fumarate (SEROquel) 50 mg DAILY PO 05/07/21 09:00 05/11/21 09:42 Quetiapine Fumarate (SEROquel) 100 mg HS PO 05/06/21 21:00 05/11/21 20:46 Cephalexin HCl (Keflex) 500 mg TID PO 05/09/21 14:00 05/16/21 13:59 05/11/21 20:45 Lactobacillus Rhamnosus (Culturelle) 1 cap BID PO 05/09/21 21:00 05/11/21 20:46 Sertraline HCl (Zoloft) 25 mg DAILY PO 05/12/21 09:00 05/14/21 20:00 Sertraline HCl (Zoloft) 50 mg DAILY PO 05/15/21 09:00 I have reviewed the current psychotropics carefully including drug interactions. Risk benefit ratio favors no change other than as noted in my dictated progress note. Diagnosis: Problems: (1) Impulse control disorder, unspecified (2) Anxiety disorder, unspecified (3) Dementia, vascular, with depression (4) Dementia, vascular, with delusions (5) Dementia in Alzheimer's disease with depression (6) Dementia in Alzheimer's disease with delusions (7) Dementia of the Alzheimer's type with early onset with behavioral disturbance (8) Major neurocognitive disorder JAE HERNANDEZ MD May 11, 2021 20:58
[2021-05-12 05:50] VITALS: BP 125/63
[2021-05-12] MEDS: LEVOTHYROXINE 75 MCG TABLET PO SCH (06:05)
[2021-05-12 06:20] LABS: CALCIUM 8.5 mg/dL (8.5-10.1); CREATININE 1.9 mg/dL (0.7-1.3); GFR 33.9; POTASSIUM 4.5 mmol/L (3.5-5.1)
--- NOTE | 2021-05-12 07:29 | PDOC ---
Exam Note: Brennen Note: This note is a late entry for 05/11/2021 covers elements not covered in my initial note. Subjective: The patient was reviewed at treatment team meeting individually in the morning on 05/11/2021 with Kathi Barreto, Adrienne Donovan, and Ena Cotton (nursing home social worker), Therese, activity therapy, and Colleen BEE, discussed and reviewed the chart. Reviewed current and past historical information from Dr. Palma. The patient slept 7-3/4 hours previous night. Patients appetite is about 40%, sleeping about 6-1/2 hours average. He had his flu shot on 04/08. He has continued to have some jerking movements of his right hand. Dr. Dotson was consulted by nursing staff because his sodium was elevated at [address] Dotson did not feel this has contributed to the tremors. We have stopped the Depakote as this could be contributing to the tremors and we will also consult Dr. Jalloh, Neurology. He is on Aricept and Namenda but at this stage of his dementia these probably have little beneficial effect and we will stop it. He has attended one group and has been yelling in groups. Social service staff is looking at possible transition [facility] [place] when he stabilizes. He has been quite obsessive, repetitive, impulsive, anxious and the obsessiveness is much about his shoes. He will have Covid screen tomorrow morning. He complains of weakness and tiredness. Review of Systems: Ambulation impaired, in wheelchair. Complains of tiredness. No CV, , eye, ENT system symptoms on review. Mental Status Exam: The patient is oriented to himself. Insight and judgment, recent and remote memory, attention and concentration, fund of knowledge is poor consistent with his diagnoses. Laboratory Data: Reviewed. Impression: Major neurocognitive disorder, Alzheimer, vascular with delusion, depression, behavioral disturbance. Anxiety disorder unspecified. Impulse control disorder unspecified. Plan: Stop the Aricept and Namenda. Start Zoloft 25 mg a day for 3 days and 50 mg a day. Rest unchanged for now. Consult Dr. Jalloh. Maintain gabapentin, Seroquel and trazodone. Assessment: Vital Signs/I&O: Vital Signs Date Time Temp Pulse Resp B/P (MAP) Pulse Ox O2 Delivery O2 Flow Rate FiO2 1/11/22 05:50 100.5 104 18 125/63 (83) 92 05/11/21 15:42 Room Air I & O 05/11/21 05/11/21 05/12/21 14:59 22:59 06:59 Intake Total 600 ml 240 ml Balance 600 ml 240 ml Labs: Laboratory Tests Test 05/12/21 06:00 Sodium Level 149 mmol/L (136-145) H Potassium Level 4.5 mmol/L (3.5-5.1) Chloride Level 115 mmol/L (98-107) H Carbon Dioxide Level 24 mmol/L (21-32) Anion Gap 10 (6-14) Blood Urea Nitrogen 39 mg/dL (8-26) H Creatinine 1.9 mg/dL (0.7-1.3) H Estimated GFR (Cockcroft-Gault) 33.9 Glucose Level 113 mg/dL (70-99) H Calcium Level 8.5 mg/dL (8.5-10.1) Current Medications: Meds: Laboratory Tests Test 05/12/21 06:00 Sodium Level 149 mmol/L Potassium Level 4.5 mmol/L Chloride Level 115 mmol/L Carbon Dioxide Level 24 mmol/L Anion Gap 10 Blood Urea Nitrogen 39 mg/dL Creatinine 1.9 mg/dL Estimated GFR (Cockcroft-Gault) 33.9 Glucose Level 113 mg/dL Calcium Level 8.5 mg/dL Current Medications Medications (Trade) Dose Ordered Sig/Mary Route PRN Reason Start Time Stop Time Status Last Admin Dose Admin Allopurinol (Zyloprim) 100 mg BID PO 04/17/21 21:00 05/11/21 20:46 Aspirin (Aspirin Chewable) 81 mg DAILY PO 04/18/21 09:00 05/11/21 09:42 Donepezil HCl (Aricept) 10 mg HS PO 04/17/21 21:00 05/11/21 11:39 DC 05/10/21 20:01 Finasteride (Proscar) 5 mg DAILY PO 04/18/21 09:00 05/11/21 09:41 Levothyroxine Sodium (Synthroid) 75 mcg DAILY06 PO 04/18/21 06:00 05/12/21 06:05 Memantine (Namenda) 10 mg BID PO 04/17/21 21:00 05/11/21 11:39 DC 05/11/21 09:41 Mirabegron (Myrbetriq) 25 mg DAILY PO 04/18/21 09:00 05/11/21 09:42 Pantoprazole Sodium (Protonix) 40 mg DAILY PO 04/18/21 09:00 05/11/21 09:42 Quetiapine Fumarate (SEROquel) 25 mg BID PO 04/17/21 21:00 04/19/21 14:35 DC 04/19/21 08:59 Spironolactone (Aldactone) 25 mg Q48H PO 04/18/21 09:00 05/08/21 12:12 DC 05/08/21 09:20 Torsemide (Demadex) 40 mg DAILY PO 04/18/21 09:00 05/08/21 12:12 DC 05/08/21 09:21 Atorvastatin Calcium (Lipitor) 80 mg QHS PO 04/17/21 21:00 05/11/21 20:46 Lisinopril (Prinivil) 40 mg DAILY PO 04/18/21 09:00 05/11/21 09:42 Cyanocobalamin (Vitamin B-12) 1,000 mcg 1200 PO 04/18/21 12:00 05/11/21 12:56 Gabapentin (Neurontin) 400 mg TID PO 04/17/21 14:30 05/11/21 20:46 Multivitamins/ Calcium (Thera-M Plus) 1 tab DAILY PO 04/18/21 09:00 05/11/21 09:41 Fish Oil (Fish Oil) 1,000 mg DAILY PO 04/18/21 09:00 05/09/21 12:11 DC 05/08/21 09:21 Dexamethasone (Maxidex) 1 drop BID OU 04/17/21 21:00 05/11/21 20:45 Acetaminophen (Tylenol) 650 mg PRN Q6HRS PRN PO MILD PAIN / TEMP > 100.3'F 04/17/21 14:00 05/10/21 08:30 Multi-Ingredient Ointment (Analgesic Kiester) 1 mechelle PRN QID PRN TP MUSCLE PAIN 04/17/21 14:00 Al Hydroxide/Mg Hydroxide (Mylanta Plus Xs) 15 ml PRN AFTMEALHC PRN PO DYSPEPSIA 04/17/21 14:00 05/08/21 10:20 Magnesium Hydroxide (Milk Of Magnesia) 2,400 mg PRN QHS PRN PO CONSTIPATION 04/17/21 14:00 05/11/21 06:21 Olanzapine (ZyPREXA) 2.5 mg PRN Q2HRS PRN PO ANXIETY / AGITATION 04/17/21 14:00 04/23/21 15:57 DC 04/23/21 12:49 Influenza Virus Vaccine Quadrival (Flulaval Quad [id number] Syringe) 0.5 ml ONCE ONCE VAX IM 04/18/21 09:00 04/18/21 09:01 DC 04/18/21 09:00 Warfarin Sodium (Coumadin) 5 mg QMWF PO 04/20/21 16:00 04/21/21 18:22 DC 04/20/21 16:53 Warfarin Sodium (Coumadin) 7.5 mg QSUTUTH PO 04/19/21 16:00 04/21/21 18:22 DC 04/21/21 16:42 Warfarin Sodium (Coumadin) 7.5 mg QSA PO 04/18/21 16:00 04/21/21 18:22 DC 04/18/21 16:00 Warfarin Sodium (Coumadin Per Physician) 1 each PRN DAILY PRN MC SEE COMMENTS 04/17/21 23:30 Quetiapine Fumarate (SEROquel) 25 mg PRN Q6HRS PRN PO ANXIETY / AGITATION 04/18/21 10:45 04/23/21 15:57 DC 04/19/21 01:33 Quetiapine Fumarate (SEROquel) 25 mg QID PO 04/19/21 17:00 04/21/21 13:59 DC 04/21/21 12:00 Trazodone HCl (Desyrel) 50 mg PRN QHS PRN PO insomnia 04/19/21 19:30 05/08/21 22:04 Quetiapine Fumarate (SEROquel) 25 mg 0900,1300,1700 PO 04/21/21 17:00 05/04/21 16:42 DC 05/04/21 16:33 Quetiapine Fumarate (SEROquel) 50 mg QHS PO 04/21/21 21:00 05/04/21 16:42 DC 05/03/21 19:56 Divalproex Sodium (Depakote Sprinkles) 125 mg BID PO 04/21/21 21:00 04/22/21 15:09 DC 04/22/21 08:28 Dextrose (Dextrose 50%-Water Syringe) 12.5 gm PRN Q15MIN PRN IV SEE COMMENTS 04/21/21 18:30 Warfarin Sodium (Coumadin) 7.5 mg DAILY16 PO 04/22/21 16:00 04/25/21 14:16 DC 04/24/21 15:16 Divalproex Sodium (Depakote Sprinkles) 250 mg BID PO 04/22/21 21:00 04/26/21 14:45 DC 04/26/21 07:51 Quetiapine Fumarate (SEROquel) 50 mg PRN Q6HRS PRN PO ANXIETY / AGITATION 04/23/21 16:00 05/04/21 16:42 DC 05/04/21 14:30 Nystatin (Nystop) 1 mechelle PRN BID PRN TP TO BILATERAL GROINS 04/26/21 03:00 05/11/21 20:45 Divalproex Sodium (Depakote Sprinkles) 250 mg 0900,1300 PO 04/27/21 09:00 05/10/21 18:47 DC 05/10/21 13:21 Divalproex Sodium (Depakote Sprinkles) 375 mg HS PO 04/27/21 21:00 04/26/21 19:37 DC Divalproex Sodium (Depakote Sprinkles) 375 mg HS PO 04/26/21 21:00 05/04/21 16:42 DC 05/03/21 19:57 Warfarin Sodium (Coumadin) 5 mg DAILY16 PO 04/27/21 16:00 05/11/21 16:36 Divalproex Sodium (Depakote Sprinkles) 500 mg HS PO 05/04/21 21:00 05/10/21 18:47 DC 05/09/21 19:59 Quetiapine Fumarate (SEROquel) 50 mg BID PO 05/04/21 21:00 05/06/21 16:16 DC 05/06/21 08:06 Olanzapine (ZyPREXA ZYDIS) 5 mg PRN Q4HRS PRN PO PSYCHOSIS 05/04/21 16:45 05/10/21 05:11 Quetiapine Fumarate (SEROquel) 50 mg DAILY PO 05/07/21 09:00 05/11/21 09:42 Quetiapine Fumarate (SEROquel) 100 mg HS PO 05/06/21 21:00 05/11/21 20:46 Cephalexin HCl (Keflex) 500 mg TID PO 05/09/21 14:00 05/16/21 13:59 05/11/21 20:45 Lactobacillus Rhamnosus (Culturelle) 1 cap BID PO 05/09/21 21:00 05/11/21 20:46 Sertraline HCl (Zoloft) 25 mg DAILY PO 05/12/21 09:00 05/14/21 20:00 Sertraline HCl (Zoloft) 50 mg DAILY PO 05/15/21 09:00 I have reviewed the current psychotropics carefully including drug interactions. Risk benefit ratio favors no change other than as noted in my dictated progress note. Diagnosis: Problems: (1) Impulse control disorder, unspecified (2) Anxiety disorder, unspecified (3) Dementia, vascular, with depression (4) Dementia, vascular, with delusions (5) Dementia in Alzheimer's disease with depression (6) Dementia in Alzheimer's disease with delusions (7) Dementia of the Alzheimer's type with early onset with behavioral distur bance (8) Major neurocognitive disorder JAE HERNANDEZ MD May 12, 2021 07:29
[2021-05-12] MEDS ORDERED: SERTRALINE 25 MG TABLET. PO SCH (09:00)
[2021-05-12] MEDS: ASPIRIN CHEWABLE 81 MG TABLET. PO SCH (09:23)
[2021-05-12] MEDS: ALLOPURINOL 100 MG TABLET. PO SCH (09:23)
[2021-05-12] MEDS: CEPHALEXIN 250 MG CAPSULE PO SCH (09:23)
[2021-05-12] MEDS: MULTIVITAMIN with MINERAL TABLET. PO SCH (09:23)
[2021-05-12 09:24] VITALS: BP 125/63
[2021-05-12] MEDS: LISINOPRIL 20 MG TABLET PO SCH (09:24)
[2021-05-12] MEDS: MIRABEGRON 25 MG TAB.ER.24H PO SCH (09:24)
[2021-05-12] MEDS: LACTOBACILLUS RHAMNOSUS GG 1 CAPSULE. PO SCH (09:24)
[2021-05-12] MEDS: GABAPENTIN 400 MG CAPSULE. PO SCH (09:24)
[2021-05-12] MEDS: QUEtiapine 50 MG TABLET. PO SCH (09:24)
[2021-05-12] MEDS: DEXAMETHASONE 0.1% OPHTH SOLUTION 5ML BOTTLE. OU SCH (09:25)
[2021-05-12] MEDS: FINASTERIDE 5 MG TABLET. PO SCH (09:25)
[2021-05-12] MEDS: PANTOPRAZOLE 40 MG TABLET. PO SCH (09:26)
[2021-05-12] MEDS: ACETAMINOPHEN 325 MG TABLET PO PRN (09:54)
[2021-05-12] MEDS: CYANOCOBALAMIN (VITAMIN B-12) 1,000 MCG TABLET. PO SCH (12:03)
--- NOTE | 2021-05-12 12:58 | HP ---
DATE OF SERVICE: 05/12/2021 ADMIT DATE: 04/17/2021 ATTENDING PHYSICIAN: Dr. Dotson. CHIEF COMPLAINT: Fevers. HISTORY OF PRESENT ILLNESS: The patient is an 85-year-old gentleman who has been at the [facility] since 04/17. He normally is fairly active, walks around, he is less active, little lethargic. He has a fever up to 103 degrees Fahrenheit. A repeat coronavirus swab is still pending. The last four were negative, but with 9 of the 14 patients previously testing positive for coronavirus, this is an infection until proven otherwise. His chemistry panel showed dehydration and free water deficit. The patient is a DNR per advanced directive. He cannot tell me much symptoms. When I saw him, he was quite lethargic, not moving air very well. Chest x-ray and blood cultures are pending along with viral swabs. He is admitted to the medical floor with acute febrile illness. PAST MEDICAL HISTORY: Significant for profound dementia, Alzheimer's, vascular type. He is becoming more confused, paranoid, psychotic, and agitated resulting in his admission to the [facility]. He has been combative. There is no homicidal or suicidal ideation. PSYCHIATRIC HISTORY: As above. PAST MEDICAL HISTORY: Also significant for gastroesophageal reflux disease, hypertension, urinary retention, hard of hearing, hypothyroidism, and gout. CURRENT MEDICATIONS: Reviewed from the psychiatric unit. He was getting allopurinol, Tylenol, aspirin, Lipitor, cephalexin, vitamin B12, Decadron, finasteride, Neurontin, lactobacillus, Synthroid, lisinopril, milk of magnesia, Myrbetriq, nystatin, olanzapine, Protonix, Seroquel, Zoloft, trazodone, and Coumadin. It is unclear what his diagnosis necessitated the Coumadin. He is a DNR per advanced directive. ALLERGIES: HE HAS ALLERGIES TO NIASPAN. He is on a cardiac diet. FAMILY HISTORY: Noncontributory. SOCIAL HISTORY: The patient lives at home. He used to work at a [employer] in [place], [place]. PHYSICAL EXAMINATION: GENERAL: When I saw him, this is an elderly, confused gentleman. VITAL SIGNS: His initial vital signs showed a temperature of 103.0 degrees Fahrenheit, pulse is 100 and regular, BP was 125/63, oxygen saturation 92% on room air. HEENT: Head is without trauma. Pupils are reactive. Sclerae nonicteric. Oropharynx is clear. NECK: Supple, no bruits identified. LUNGS: Shallow respirations. CARDIOVASCULAR: Showed distant heart tones. No gallops. ABDOMEN: Soft. EXTREMITIES: Without edema. NEUROLOGIC: Profound confusion. He is bedridden, which is a decline for him. PERTINENT LABORATORY STUDIES: His most recent hemoglobin was 13.2 grams. Chemistry today showed a sodium, which is improving. It had been 153 mEq, yesterday was down to 149. Concomitantly, the chloride is elevated at 115. Creatinine is down from 2.3-1.9 mg percent. ASSESSMENT: 1. An 85-[facility]-old [facility] with acute febrile illness. 2. Obtundation related illness. 3. Profound dementia. 4. Chronic anticoagulation, most likely atrial fibrillation. PLAN: 1. Admit to the inpatient unit. 2. Gentle IV hydration with dextrose solution. 3. Serial chemistries to monitor his free water deficit. 4. Blood cultures. 5. Await the coronavirus swab. 6. Influenza swab. 7. Empiric Rocephin, pending cultures. He is a DNR per advanced directive, we will respect his wishes. MATEO/STEPHANIE DR: Dawit TID: [id number] CC: JAE HERNANDEZ MD
[2021-05-12] MEDS ORDERED: ACET325T21 PO (14:13)
[2021-05-12] MEDS ORDERED: CEPH500C PO (14:16)
[2021-05-12] MEDS ORDERED: DEXT50DI3 IV (14:17)
[2021-05-12] MEDS ORDERED: LACT1CAP6 PO (14:19)
[2021-05-12] MEDS ORDERED: NYST15CR TP (14:22)
[2021-05-12] MEDS ORDERED: OLAN5TAB67 PO (14:23)
[2021-05-12] MEDS ORDERED: PANT40TA6 PO (14:24)
[2021-05-12] MEDS ORDERED: QUET100T4 PO (14:25)
[2021-05-12] MEDS ORDERED: SERT25TA PO (14:26)
[2021-05-12] MEDS ORDERED: TRAZ-120 PO (14:27)
--- NOTE | 2021-05-12 21:24 | PDOC ---
Exam Note: Brennen Note: Please also refer to the separate dictated note~for this date of service dictated separately.~Patient seen individually. Discussed the patient with Nursing staff reviewed the chart.~Reviewed interim history and current functioning. Reviewed vital signs,~Labs/ Radiology~and current medications noted below. Continue current treatment with the changes noted in the dictated addendum note Assessment: Vital Signs/I&O: Vital Signs Date Time Temp Pulse Resp B/P (MAP) Pulse Ox O2 Delivery O2 Flow Rate FiO2 05/12/21 09:24 104 125/63 05/12/21 05:50 100.5 18 92 05/11/21 15:42 Room Air I & O 05/11/21 05/11/21 05/12/21 15:00 23:00 07:00 Intake Total 600 ml 240 ml Balance 600 ml 240 ml Labs: Laboratory Tests Test 05/12/21 06:00 Sodium Level 149 mmol/L (136-145) H Potassium Level 4.5 mmol/L (3.5-5.1) Chloride Level 115 mmol/L (98-107) H Carbon Dioxide Level 24 mmol/L (21-32) Anion Gap 10 (6-14) Blood Urea Nitrogen 39 mg/dL (8-26) H Creatinine 1.9 mg/dL (0.7-1.3) H Estimated GFR (Cockcroft-Gault) 33.9 Glucose Level 113 mg/dL (70-99) H Calcium Level 8.5 mg/dL (8.5-10.1) SARS-CoV-2 (PCR) Positive (NOT DETECTD) H Current Medications: Meds: Current Medications Medications (Trade) Dose Ordered Sig/Mary Route PRN Reason Start Time Stop Time Status Last Admin Dose Admin Sertraline HCl (Zoloft) 25 mg DAILY PO 05/12/21 09:00 05/12/21 15:45 DC 05/12/21 09:23 I have reviewed the current psychotropics carefully including drug interactions. Risk benefit ratio favors no change other than as noted in my dictated progress note. Diagnosis: Problems: (1) Impulse control disorder, unspecified (2) Anxiety disorder, unspecified (3) Dementia, vascular, with depression (4) Dementia, vascular, with delusions (5) Dementia in Alzheimer's disease with depression (6) Dementia in Alzheimer's disease with delusions (7) Dementia of the Alzheimer's type with early onset with behavioral disturbance (8) Major neurocognitive disorder JAE HERNANDEZ MD May 12, 2021 21:24
--- NOTE | 2021-05-12 22:52 | DS ---
DATE OF DISCHARGE: 05/12/2021 DISCHARGE SUMMARY/PSYCHIATRIC PROGRESS NOTE REASON FOR ADMISSION: Please refer to the admission history for details. Briefly, the patient is an 85-year-old male who was referred to us from [facility] where he presented from home on account of increased agitation and confusion. He was spitting on the floor and at people. He was combative with cares, had not slept in many days. He is more confused. He had been living at home with his and was getting cognitively more compromised, but then the was able to take care of him until she had a fractured ankle and was hospitalized and he was much more confused, psychotic, agitated, cursing, using profanities, unmanageable and referred for inpatient psychiatric stabilization. SIGNIFICANT FINDINGS AND CLINICAL COURSE: Following admission, the patient was seen daily individually by myself from a psychiatric standpoint and by Dr. Avalos while I was on vacation. He remained confused, was using profuse profanities towards nursing staff, agitated with marked mood lability, aggressive, disruptive. Adjustments were made in his psychotropics and he seemed to be responding to a combination of Seroquel 50 mg a.m., 100 mg at bedtime, gabapentin 400 mg t.i.d., trazodone 50 mg at bedtime, may repeat x 1, Zoloft 25 mg a day with a plan to increase to 50 mg a day on 05/15/2020 and Zyprexa p.r.n. He had been on Keflex for his left lower extremity cellulitis. At this stage, he returned COVID positive and ran a fever of 103 degrees Fahrenheit in the morning of 05/12 and was transferred to the medical surgical floor per Dr. Dotson. REVIEW OF SYSTEMS: Prior to discharge, ambulation impaired, complained of tiredness. No CV, , pulmonary, eye, ENT system symptoms on review. Reliability poor. MENTAL STATUS EXAMINATION: Oriented to himself. Insight, judgment, recent and remote memory, attention, concentration, fund of knowledge poor consistent with his diagnoses. FINAL DIAGNOSES: Major neurocognitive disorder, Alzheimer, vascular with delusion, depression, behavioral disturbance, anxiety disorder, unspecified; impulse control disorder, unspecified. COVID positive status. Rest unchanged from admission. DISCHARGE MEDICATIONS: Please refer to the MRAD. Psychiatric and medical followup on . Time for discharge day management greater than 30 minutes. I was later called by the nursing staff on that Dr. Dotson had discontinued all his psychotropics and he was getting increasingly agitated. We have restarted Seroquel 25 mg a.m. and bedtime and Zyprexa 2.5 mg q. 2 hours p.r.n., psychosis, agitation, max 7.5 mg in 24 hours and kept the rest of his psychotropics discontinue until he is medically stabilized. I would be happy to follow him on the medical surgical floor as requested. ANGLE DR: Melinda TID: [id number]
[2021-05-15] MEDS ORDERED: SERTRALINE 50 MG TABLET. PO SCH (09:00)
== END 2021-05-12 15:45 | disposition short-term general hospital (02) | DRG 56 ==
LOC: GEROPSY 13:11
PROVIDERS: ADMIT Psychiatry & Neurology Psychiatry; ATTEND Psychiatry & Neurology Psychiatry
DX: G30.9 Alzheimer's disease, unspecified (principal); F02.81 Dementia in other diseases classified elsewhere, unspecified severity, with behavioral disturbance; U07.1 COVID-19; F01.51 Vascular dementia, unspecified severity, with behavioral disturbance; E03.9 Hypothyroidism, unspecified; E86.0 Dehydration; F32.A Depression, unspecified; F41.9 Anxiety disorder, unspecified; F63.9 Impulse disorder, unspecified; H90.5 Unspecified sensorineural hearing loss; I10 Essential (primary) hypertension; I25.10 Atherosclerotic heart disease of native coronary artery without angina pectoris; I48.91 Unspecified atrial fibrillation; M10.9 Gout, unspecified; N40.1 Benign prostatic hyperplasia with lower urinary tract symptoms; R33.8 Other retention of urine; Z66 Do not resuscitate; Z79.01 Long term (current) use of anticoagulants; Z79.899 Other long term (current) drug therapy; K21.9 Gastro-esophageal reflux disease without esophagitis
CPT/HCPCS: 36415; 70450; 71045; 80048; 80053; 80061; 80164; 81001; 82306; 82607; 82947; 83036; 83540; 83550; 83735; 84436; 84443; 84480; 85025; 85379; 85610; 85730; 86592; 90471; 90686; 93005; U0003; 92610; 97110; 97116; 97530

== ENCOUNTER 2021-05-12 15:09 | Inpatient (IN) | payer MEDICARE, MEDICAID ==
[~2021-05-12] VITALS: Ht 175.3 cm; Wt 98.1 kg
[~2021-05-12 15:09] MED LIST: ACET325T21 PO; ALLO100T PO; ASPI-630 PO; ATORVASTATIN CA80 MG PO; BENA40TA74 PO; CEPH500C PO; CYAN500T17 PO; DEXT50DI3 IV; DONE10TA7 PO; FINA5TAB4 PO; GABA800T5 PO; LACT1CAP6 PO; LEVO75TA5 PO; MEMA10TA PO; MIRA25TA PO; MULT-245 PO; NYST15CR TP; OLAN5TAB67 PO; OMEG10005 PO; PANT40TA6 PO; QUET100T4 PO; QUET25TA5 PO; SERT25TA PO; SPIR25TA5 PO; TORS20TA2 PO; TRAZ-120 PO; WARF-31 PO; WARF7.5T45 PO; dexamethasone EACHEYE
[2021-05-12 16:01] VITALS: BP 118/70
--- NOTE | 2021-05-12 16:04 | NUR ---
Received callback from daughter/DPOA Susan. Daughter informed of pt's positive COVID19 test and move to [facility].
--- NOTE | 2021-05-12 16:15 | NUR ---
Nursing note Pt admitted to room 109 from [facility] at 1610 via wheelchair accompanied by staff.
[2021-05-12] MEDS ORDERED: IV DEXTROSE 5% 1,000 ML IV SCH (17:00)
[2021-05-12] MEDS ORDERED: ENOXAPARIN 30 MG/0.3 ML SYRINGE. SQ SCH (17:00)
--- NOTE | 2021-05-12 18:04 | NUR ---
4 staff attempted to initiate IV access on pt with no success. Dr Dotson pagemegan. Orders given to d/c IVF and IV medications and change to PO medications, see orders.
--- NOTE | 2021-05-12 18:30 | RAD ---
EXAM: CHEST ONE VIEW. HISTORY: Pneumonia. COMPARISON: 04/19/2021. FINDINGS: A frontal view of the chest is obtained. There are mild interstitial opacities in both bases. These appear improved since the prior study. The re is no pneumothorax or pleural effusion. The heart is not enlarged. There are atherosclerotic calci fications of the aorta. IMPRESSION: 1. Mild bibasilar interstitial opacities appear improved. Correlate for resolving infiltrates with or without a component of interstitial disease. Electronically signed by: Kaitlynn Chester MD (05/12/2021 6:28 PM) [facility]
[2021-05-12 20:32] VITALS: BP 123/65
[2021-05-12] MEDS: CEPHALEXIN 250 MG CAPSULE PO SCH (21:33)
[2021-05-12] MEDS: QUEtiapine 25 MG TABLET. PO SCH (21:33)
--- NOTE | 2021-05-12 22:00 | NUR ---
PT WITH POOR PO INTAKE. PT TOOK MEDS CRUSHED IN 1 BITE OF APPLESAUCE AFTER MUCH COAXING. IV ACCESS OBTAINED. #22 TO RT WRIST. IV FLUIDS (D5W @ 100ML/HR) INITIATED AT THIS TIME.
[2021-05-12 22:33] VITALS: BP 125/73
[2021-05-12] MEDS: IV DEXTROSE 5% 1,000 ML IV SCH (22:45)
[2021-05-12] MEDS: ACETAMINOPHEN 325 MG TABLET PO PRN (22:51)
--- NOTE | 2021-05-13 01:16 | NUR ---
PT INCONT OF URINE. CHANGED X2 ASSIST, PT AGITATED AND UNCOOPERATIVE--DIFFICULT TO REDIRECT. ATTEMPTING TO PULL OUT IV. MITS PLACED TO PROTECT LINE.
[2021-05-13 05:56] VITALS: BP 124/73
[2021-05-13 06:50] LABS: CALCIUM 8.4 mg/dL (8.5-10.1); CREATININE 2.8 mg/dL (0.7-1.3); GFR 21.7; POTASSIUM 4.3 mmol/L (3.5-5.1)
[2021-05-13 06:50] LABS: INFLUENZA A PATIENT NEGATIVE (NEGATIVE); INFLUENZA B PATIENT NEGATIVE (NEGATIVE)
[2021-05-13] MEDS: AZITHROMYCIN 250 MG TABLET. PO SCH (08:58)
[2021-05-13] MEDS: CEPHALEXIN 250 MG CAPSULE PO SCH ×3 (08:58→19:05)
[2021-05-13] MEDS: DEXAMETHASONE 4 MG TABLET PO SCH (08:58)
[2021-05-13] MEDS: QUEtiapine 25 MG TABLET. PO SCH ×2 (08:58→19:05)
[2021-05-13] MEDS ORDERED: DEXAMETHASONE SOD PHOS 10 MG/ML VIAL. IV SCH (09:00)
[2021-05-13 10:41] VITALS: BP 109/66
[2021-05-13] MEDS: IV DEXTROSE 5% 1,000 ML IV SCH ×2 (11:16→19:00)
[2021-05-13 13:34] LABS: BASO # 0.1 x10^3/uL (0.0-0.2); BASO % 1 % (0-3); EOS % 0 % (0-3); HEMATOCRIT 38.1 % (39.0-53.0); HEMOGLOBIN 12.4 g/dL (13.0-17.5); LYMPH # 0.9 x10^3/uL (1.0-4.8); LYMPH % 14 % (24-48); MEAN CORPUSCULAR HEMOGLOBIN 31 pg (25-35); MEAN CORPUSCULAR HGB CONC 32 g/dL (31-37); MEAN CORPUSCULAR VOLUME 96 fL (79-100); MONO # 0.3 x10^3/uL (0.0-1.1); MONO % 5 % (0-9); NEUT % 80 % (31-73); PLATELET COUNT 130 x10^3/uL (140-400); RED BLOOD COUNT 3.98 x10^6/uL (4.30-5.70); RED CELL DISTRIBUTION WIDTH 17.1 % (11.5-14.5); WHITE BLOOD COUNT 6.2 x10^3/uL (4.0-11.0)
[2021-05-13 14:43] VITALS: BP 126/63
[2021-05-13] MEDS ORDERED: MAG HYDROX/AL HYDROX/SIMETH 30 ML ORAL.SUSP PO PRN (16:45)
[2021-05-13] MEDS ORDERED: NYSTATIN TOPICAL POWDER 15GM BOTTLE. TP PRN (16:45)
[2021-05-13] MEDS ORDERED: METHYL SALICYLATE/MENTHOL TOPICAL OINTMENT 57GM TUBE. TP PRN (16:45)
[2021-05-13] MEDS ORDERED: MAGNESIUM HYDROXIDE 2,400 MG/30 ML ORAL.SUSP. PO PRN (16:45)
[2021-05-13] MEDS ORDERED: WARFARIN 7.5 MG TABLET. PO ONE (17:00)
--- NOTE | 2021-05-13 17:48 | HP ---
DATE OF SERVICE: 05/13/2021 ADMIT DATE: 05/12/2021 HISTORY OF PRESENT ILLNESS: The patient is an 85-year-old male patient who was originally admitted to [facility] on 04/17/2021. Apparently, he tested positive for coronavirus with PCR and therefore, he was transferred to [address] [place] [address]. Apparently, the multiple other residents were tested positive for coronavirus and therefore, patient was transferred to [address] [place] [address]. There is no documentation that the patient has any symptoms. His x-rays, he has had lab work done and x-rays, his white cell count was normal. His chemistry showed that he has hypernatremia and impaired kidney function. In fact, his creatinine has been up and down from 1.5 up to 2.2 and his chest x-ray done on the transfer showed that there is mild bibasilar interstitial opacities, appears improved. Correlate for resolving infiltrate with or without component of interstitial disease, he was transferred to [address] [place] [address], although he does not require any oxygen and has no fever. PAST MEDICAL HISTORY: Significant for gastroesophageal reflux disease, hypertension, urinary retention, gout, coronary artery disease status post coronary artery bypass graft surgery and hypothyroidism. PAST SURGICAL HISTORY: Significant for cholecystectomy, appendectomy and coronary artery bypass graft surgery. ALLERGIES: HE IS ALLERGIC TO NIACIN. MEDICATIONS: He is currently on Aricept 10 mg at bedtime, Coumadin 5 mg on Tuesday, Tuesday, Tuesday and 7.5 mg on Tuesday, Tuesday, as well as Tuesday, omega 3 fatty acid 1000 mg once a day, benazepril 40 mg daily, spironolactone 25 mg every 48 hours, aspirin 81 mg once a day, gabapentin 400 mg 3 times a day, quetiapine fumarate 25 mg twice a day, Namenda 10 mg twice a day, torsemide 40 mg daily, Protonix 40 mg daily, levothyroxine sodium 75 mcg once a day, Myrbetriq 25 mg daily and vitamin B12 1000 mcg daily, multivitamin 1 tablet once a day, finasteride 5 mg daily, allopurinol 100 mg twice a day, atorvastatin calcium 80 mg at bedtime, and dexamethasone eyedrops 1 drop to both eyes twice a day. FAMILY HISTORY: Noncontributory. SOCIAL HISTORY: He is . Apparently, he lives with his . He does not smoke, drink alcohol or use recreational drugs. 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 REVIEW OF SYSTEMS: The patient is very hard of hearing, impaired ambulation and he is mostly wheelchair bound when I saw him. PHYSICAL EXAMINATION: GENERAL: He was resting slightly propped up in bed, in no apparent respiratory distress, pale, but not jaundiced, cyanosed, no lymphadenopathy, no thyromegaly, no jugular venous distention. No limb edema. VITAL SIGNS: Her heart rate was 104, blood pressure is 125/63, temperature was 100.5, respiratory rate was 18 and oxygen saturation was 92%. HEAD, EYES, EARS, NOSE, AND THROAT: Normocephalic, atraumatic. NECK: Supple. HEART: Showed normal first and second heart sounds. No gallop, rub or murmur. CHEST: Clear to auscultation. No crepitation or rhonchi. ABDOMEN: Distended, soft, nontender. NEUROLOGIC: He was demented without any obvious lateralizing sign. All his cranial nerves are intact. He moves extremities without difficulty, although he is mostly wheelchair bound. LABORATORY DATA: On the day of admission, his most recent lab work showed a serum sodium 149, potassium 4.5, chloride 115, bicarbonate 24, anion gap of 10, BUN 39, creatinine 1.9. Estimated GFR was 33 mL per minute. His glucose was 113 and calcium was 8.5. His most recent white cell count was 7200, hemoglobin 13, hematocrit 40, MCV 95 and platelet count of 191,000. ASSESSMENT AND PLAN: The patient was transferred to [address] [place] [address], as he was positive for COVID-19 by PCR. The patient has mild fever up to 100.5, his white cell count continued to be normal; however, his chest x-ray if anything showed improvement of mild bibasilar interstitial opacities, plan is to reconcile all his medications, particularly continue with his Coumadin. Monitor his PT/INR with the pharmacy to adjust the dose, other medical problems include gastroesophageal reflux disease, hypertension, urinary retention, gout, coronary artery disease status post 4 bypass graft surgery and hypothyroidism. TANO DR: Jomar TID: [id number]
[2021-05-13] MEDS: traZODone 50 MG TABLET. PO PRN ×2 (19:04→23:36)
[2021-05-13] MEDS: ATORVASTATIN CALCIUM 20 MG TABLET PO SCH (19:05)
[2021-05-13] MEDS: GABAPENTIN 400 MG CAPSULE. PO SCH (19:05)
[2021-05-13] MEDS: DEXAMETHASONE 0.1% OPHTH SOLUTION 5ML BOTTLE. OU SCH (19:06)
[2021-05-13 19:37] VITALS: BP 137/73
--- NOTE | 2021-05-13 20:48 | PDOC ---
Exam Note: Brennen Note: Please also refer to the separate dictated note~for this date of service dictated separately.~Patient seen individually. Discussed the patient with Nursing staff reviewed the chart.~Reviewed interim history and current functioning. Reviewed vital signs,~Labs/ Radiology~and current medications noted below. Continue current treatment with the changes noted in the dictated addendum note Assessment: Vital Signs/I&O: Vital Signs Date Time Temp Pulse Resp B/P (MAP) Pulse Ox O2 Delivery O2 Flow Rate FiO2 05/13/21 19:37 97.4 89 20 137/73 (94) 91 Room Air I & O 05/12/21 05/12/21 05/13/21 15:00 23:00 07:00 Intake Total 240 ml Balance 240 ml Labs: Laboratory Tests Test 05/13/21 06:02 05/13/21 06:05 05/13/21 13:03 Influenza Type A (Rapid) Negative (NEGATIVE) Influenza Type B (Rapid) Negative (NEGATIVE) Sodium Level 150 mmol/L (136-145) H Potassium Level 4.3 mmol/L (3.5-5.1) Chloride Level 116 mmol/L (98-107) H Carbon Dioxide Level 23 mmol/L (21-32) Anion Gap 11 (6-14) Blood Urea Nitrogen 50 mg/dL (8-26) H Creatinine 2.8 mg/dL (0.7-1.3) H Estimated GFR (Cockcroft-Gault) 21.7 Glucose Level 115 mg/dL (70-99) H Calcium Level 8.4 mg/dL (8.5-10.1) L White Blood Count 6.2 x10^3/uL (4.0-11.0) Red Blood Count 3.98 x10^6/uL (4.30-5.70) L Hemoglobin 12.4 g/dL (13.0-17.5) L Hematocrit 38.1 % (39.0-53.0) L Mean Corpuscular Volume 96 fL (79-100) Mean Corpuscular Hemoglobin 31 pg (25-35) Mean Corpuscular Hemoglobin Concent 32 g/dL (31-37) Red Cell Distribution Width 17.1 % (11.5-14.5) H Platelet Count 130 x10^3/uL (140-400) L Neutrophils (%) (Auto) 80 % (31-73) H Lymphocytes (%) (Auto) 14 % (24-48) L Monocytes (%) (Auto) 5 % (0-9) Eosinophils (%) (Auto) 0 % (0-3) Basophils (%) (Auto) 1 % (0-3) Neutrophils # (Auto) 5.0 x10^3uL (1.8-7.7) Lymphocytes # (Auto) 0.9 x10^3/uL (1.0-4.8) L Monocytes # (Auto) 0.3 x10^3/uL (0.0-1.1) Eosinophils # (Auto) 0.0 x10^3/uL (0.0-0.7) Basophils # (Auto) 0.1 x10^3/uL (0.0-0.2) Prothrombin Time 13.4 SEC (9.4-11.4) H Prothrombin Time INR 1.3 (0.9-1.1) H Current Medications: Meds: Current Medications Medications (Trade) Dose Ordered Sig/Mary Route PRN Reason Start Time Stop Time Status Last Admin Dose Admin Cephalexin HCl (Keflex) 500 mg TID PO 05/12/21 21:00 05/13/21 19:05 Azithromycin (Zithromax) 500 mg DAILY PO 05/13/21 09:00 05/13/21 08:58 Dexamethasone (Decadron) 12 mg DAILYWBKFT PO 05/13/21 08:00 05/13/21 08:58 Quetiapine Fumarate (SEROquel) 25 mg BID PO 05/12/21 21:00 05/13/21 19:05 Dextrose 1,000 ml @ 100 mls/hr Q10H IV 05/12/21 22:45 05/13/21 11:16 Acetaminophen (Tylenol) 650 mg PRN Q6HRS PRN PO MILD PAIN / TEMP > 100.3'F 05/12/21 22:45 05/12/21 22:51 Atorvastatin Calcium (Lipitor) 80 mg QHS PO 05/13/21 21:00 05/13/21 19:05 Gabapentin (Neurontin) 400 mg TID PO 05/13/21 21:00 05/13/21 19:05 Dexamethasone (Maxidex) 1 drop BID OU 05/13/21 21:00 05/13/21 19:06 Trazodone HCl (Desyrel) 50 mg PRN QHS PRN PO insomnia 05/13/21 16:45 05/13/21 19:04 Warfarin Sodium (Coumadin) 7.5 mg 1X ONCE PO 05/13/21 17:00 05/13/21 17:01 DC 05/13/21 17:14 I have reviewed the current psychotropics carefully including drug interactions. Risk benefit ratio favors no change other than as noted in my dictated progress note. 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
[2021-05-13] MEDS: LACTOBACILLUS RHAMNOSUS GG 1 CAPSULE. PO SCH (21:00)
[2021-05-13] MEDS: ALLOPURINOL 100 MG TABLET. PO SCH (21:00)
[2021-05-13 23:35] VITALS: BP 126/68
--- NOTE | 2021-05-13 23:37 | PN ---
DATE: 05/13/2021 SUBJECTIVE: The patient is resting, slightly propped up in bed, in no apparent distress, sleepy, but arousable. On questioning him denied any complaint except that he is tired. Nursing staff did not voice any concern. PHYSICAL EXAMINATION: GENERAL: When I examined him, he looked well and was clearly in no apparent respiratory distress. There is no pallor, jaundice, cyanosis. No lymphadenopathy, no thyromegaly, no jugular venous distention. No limb edema. VITAL SIGNS: His heart rate was 86, blood pressure is 126/63, temperature was 97.4, respiratory rate was 20, and oxygen saturation was 92% on room air. HEAD, EYES, EARS, NOSE, AND THROAT: Normocephalic, atraumatic. NECK: Supple. HEART: Normal first and second heart sounds, no gallop or murmur. CHEST: Clear to auscultation, no crepitation or rhonchi. ABDOMEN: Distended, soft, nontender. NEUROLOGIC: He is demented without any obvious lateralizing sign. All his cranial nerves are intact. He moves extremities without difficulty, although he is mostly wheelchair bound. His intake and output are incompletely recorded. LABORATORY DATA: His lab work showed white cell count of 6200, hemoglobin 12.4, hematocrit 38, MCV 96, and platelet count of 130,000 with normal manual differential. His chemistry continued to show hypernatremia with a serum sodium 150, potassium 4.3, chloride 116, bicarbonate 23, anion gap of 11, BUN 50, creatinine 2.8. Estimated GFR was 21 mL per minute. His glucose was 115 and calcium was 8.4. His prothrombin time was 13.4, INR 1.3. His influenza A and B were negative. ASSESSMENT: In summary, this is an 85-year-old male patient who tested positive for coronavirus by PCR. He is mostly asymptomatic. He has multiple other medical problems including hypernatremia, acute on chronic kidney injury, gastroesophageal reflux disease, hypertension, and hyperlipidemia. PLAN: My plan is to continue with IV fluid in the form of D5W. Continue with dexamethasone. Continue with Coumadin. Continue with IV antibiotic. MAXIMILIANO/KAYLEY DR: Jomar TID: [id number]
--- NOTE | 2021-05-14 04:24 | NUR ---
Pt pulled out IV during evening change of shift. Pt evidently used his teeth to pull off one ham and pulled IV out. Pt then pulled off the other ham and began disrobing. Pt was found to be covered in blood and urine. Pt cleansed and linens changed. Catheter tip is intact. Pressure bandage applied to site as pt is on Coumadin. Unable to obtain new IV access as pt was agitated and uncooperative. HS meds given crushed in pudding. Pt took with ease. PRN zyprexa given for behaviors and trazodone given to aid sleep. Pt did not settle for much of the night, despite repeated trazodone dose given per order. Pt remained awake, yelling out obscenities and difficult to redirect. Pt requesting food/drink/help but does not settle after cares are provided. Pt finally fell asleep around 0215 but awoke again after 2 hours and has resumed yelling out. Pt's daughter called around midnight for status update. Questions answered. Daughter requested [facility] SW contact her regarding DC planning once pt's COVID quarantine is finished. Daughter is trying to secure pt a spot at a nursing facility in [place]. Left V/M for Zulay to follow up.
[2021-05-14] MEDS: IV DEXTROSE 5% 1,000 ML IV SCH ×3 (04:45→21:08)
[2021-05-14 05:46] VITALS: BP 110/62
[2021-05-14 06:13] LABS: BILIRUBIN,URINE NEG (NEG); CLARITY,URINE CLEAR; COLOR,URINE YELLOW; GLUCOSE,URINE NEG (NEG)
[2021-05-14 06:14] LABS: NITRITE,URINE NEG (NEG); RBC,URINE 0 /HPF (0-2); UROBILINOGEN,URINE 0.2 mg/dL (0.2 mg/dL)
[2021-05-14] MEDS: LEVOTHYROXINE 75 MCG TABLET PO SCH (06:14)
[2021-05-14 06:15] LABS: BACTERIA,URINE MOD /HPF (0-FEW); SQUAMOUS EPITHELIAL CELL,UR MOD /LPF
[2021-05-14 06:53] LABS: HEMOGLOBIN 12.3 g/dL (13.0-17.5); RED BLOOD COUNT 3.91 x10^6/uL (4.30-5.70); RED CELL DISTRIBUTION WIDTH 16.8 % (11.5-14.5); WHITE BLOOD COUNT 7.5 x10^3/uL (4.0-11.0)
[2021-05-14 07:07] LABS: ALBUMIN 2.6 g/dL (3.4-5.0); ALBUMIN/GLOBULIN RATIO 0.8 (1.0-1.7); CALCIUM 7.6 mg/dL (8.5-10.1); CREATININE 2.3 mg/dL (0.7-1.3); GFR 27.2; POTASSIUM 3.9 mmol/L (3.5-5.1); TOTAL BILIRUBIN 0.3 mg/dL (0.2-1.0); TOTAL PROTEIN 5.9 g/dL (6.4-8.2)
--- NOTE | 2021-05-14 07:21 | NUR ---
New IV access was obtained and mits replaced. Pt promptly removed the mits and pulled out the IV, broke the IV tubing from the continuous fluids and pulled the IV pole into bed with him. Pt requires almost continuous supervision to keep from pulling at lines or equipment as he is not able to follow directions or retain instructions. PRN Zyprexa given. IV fluids on hold at this time. Dr. Wesley kessler, awaiting call back.
[2021-05-14] MEDS: DEXAMETHASONE 4 MG TABLET PO SCH (08:49)
[2021-05-14] MEDS: QUEtiapine 25 MG TABLET. PO SCH ×2 (08:50→21:06)
[2021-05-14] MEDS: LACTOBACILLUS RHAMNOSUS GG 1 CAPSULE. PO SCH ×2 (08:50→21:06)
[2021-05-14] MEDS: ASPIRIN CHEWABLE 81 MG TABLET. PO SCH (08:50)
[2021-05-14] MEDS: AZITHROMYCIN 250 MG TABLET. PO SCH (08:50)
[2021-05-14] MEDS: GABAPENTIN 400 MG CAPSULE. PO SCH ×3 (08:52→21:07)
[2021-05-14] MEDS: SPIRONOLACTONE 25 MG TABLET PO SCH (08:52)
[2021-05-14] MEDS: CEPHALEXIN 250 MG CAPSULE PO SCH ×3 (08:53→21:07)
[2021-05-14] MEDS: MULTIVITAMIN with MINERAL TABLET. PO SCH (08:53)
[2021-05-14] MEDS: ALLOPURINOL 100 MG TABLET. PO SCH ×2 (08:53→21:06)
[2021-05-14] MEDS: FINASTERIDE 5 MG TABLET. PO SCH (08:53)
[2021-05-14] MEDS: LISINOPRIL 20 MG TABLET PO SCH (08:54)
[2021-05-14] MEDS: DEXAMETHASONE 0.1% OPHTH SOLUTION 5ML BOTTLE. OU SCH ×2 (08:55→21:07)
[2021-05-14] MEDS: MIRABEGRON 25 MG TAB.ER.24H PO SCH (08:55)
[2021-05-14] MEDS ORDERED: PANTOPRAZOLE 40 MG TABLET. PO SCH (09:00)
[2021-05-14] MEDS ORDERED: SERTRALINE 25 MG TABLET. PO SCH (09:00)
[2021-05-14 11:02] VITALS: BP 139/78
[2021-05-14] MEDS: CYANOCOBALAMIN (VITAMIN B-12) 1,000 MCG TABLET. PO SCH (11:38)
--- NOTE | 2021-05-14 14:36 | NUR ---
NURS NOTE PT MEDICATIONS PASSED AND ASSESSMENT COMPLETE. PT IS SCREAMING OUT "HELP ME" AND LAYING IN BED WITHOUT CLOTHES ON. PT THREW GOWN AND SHEETS IN FLOOR. PT SPIT OUT SOME MEDICINE WITH PUDDING IN THE FLOOR. PT INTERMITTENTLY SCREAMING OUT FOR HELP.
--- NOTE | 2021-05-14 14:39 | NUR ---
Pharmacy Warfarin Dosing Note S:Pharmacy consulted to assist with anticoagulation therapy started with target INR: 2 -3 O:ABDEYVI is a 85 year old M with Recurrent VTE LABS: Last INR: 1.3 Last HGB: 12.3 Last HCT: 37 Last PLT: 132 Last dose of 7.5 mg given on 05/13/21 at 1600 Previous Regimen: Vitamin K given: Drug Interaction Changes: Same Interacting Drug Ongoing Drug Interactions: A:INR Below desired Range. Target Range for this patient is: 2 -3 P: Warfarin dose: 7.5 mg Today at 1600 Bridge Therapy: None Next INR due 05/15/21 @ 0600 Pharmacy anticoagulation service will continue to follow. ALICIA LYONS [facility], 05/14/21 [id number]
[2021-05-14 15:50] VITALS: BP 117/80
[2021-05-14] MEDS ORDERED: WARFARIN 7.5 MG TABLET. PO ONE (16:00)
[2021-05-14 19:33] VITALS: BP 94/60
[2021-05-14] MEDS: ATORVASTATIN CALCIUM 20 MG TABLET PO SCH (21:06)
[2021-05-14] MEDS: traZODone 50 MG TABLET. PO PRN (21:07)
--- NOTE | 2021-05-14 21:26 | PDOC ---
Exam Note: Brennen Note: Please also refer to the separate dictated note~for this date of service dictated separately.~Patient seen individually. Discussed the patient with Nursing staff reviewed the chart.~Reviewed interim history and current functioning. Reviewed vital signs,~Labs/ Radiology~and current medications noted below. Continue current treatment with the changes noted in the dictated addendum note Assessment: Vital Signs/I&O: Vital Signs Date Time Temp Pulse Resp B/P (MAP) Pulse Ox O2 Delivery O2 Flow Rate FiO2 05/14/21 19:33 98.8 96 18 94/60 (71) 92 Room Air I & O 05/13/21 05/13/21 05/14/21 15:00 23:00 07:00 Intake Total 1360 ml 592 ml 600 ml Output Total 450 ml Balance 1360 ml 592 ml 150 ml Labs: Laboratory Tests Test 05/14/21 05:00 05/14/21 05:53 05/14/21 07:57 Urine Collection Type Unknown Urine Color Yellow Urine Clarity Clear Urine pH 6.0 Urine Specific [place] 1.020 Urine Protein 30 mg/dl (NEG-TRACE) Urine Glucose (UA) Neg mg/dL (NEG) Urine Ketones (Stick) Neg mg/dL (NEG) Urine Blood Neg (NEG) Urine Nitrite Neg (NEG) Urine Bilirubin Neg (NEG) Urine Urobilinogen Dipstick 0.2 mg/dL (0.2 mg/dL) Urine Leukocyte Esterase Neg (NEG) Urine RBC 0 /HPF (0-2) Urine WBC 11-20 /HPF (0-4) Urine Squamous Epithelial Cells Mod /LPF Urine Bacteria Mod /HPF (0-FEW) White Blood Count 7.5 x10^3/uL (4.0-11.0) Red Blood Count 3.91 x10^6/uL (4.30-5.70) L Hemoglobin 12.3 g/dL (13.0-17.5) L Hematocrit 37.0 % (39.0-53.0) L Mean Corpuscular Volume 95 fL (79-100) Mean Corpuscular Hemoglobin 31 pg (25-35) Mean Corpuscular Hemoglobin Concent 33 g/dL (31-37) Red Cell Distribution Width 16.8 % (11.5-14.5) H Platelet Count 132 x10^3/uL (140-400) L Prothrombin Time 13.7 SEC (9.4-11.4) H Prothrombin Time INR 1.3 (0.9-1.1) H Sodium Level 147 mmol/L (136-145) H Potassium Level 3.9 mmol/L (3.5-5.1) Chloride Level 113 mmol/L (98-107) H Carbon Dioxide Level 20 mmol/L (21-32) L Anion Gap 14 (6-14) Blood Urea Nitrogen 58 mg/dL (8-26) H Creatinine 2.3 mg/dL (0.7-1.3) H Estimated GFR (Cockcroft-Gault) 27.2 BUN/Creatinine Ratio 25 (6-20) H Glucose Level 151 mg/dL (70-99) H Calcium Level 7.6 mg/dL (8.5-10.1) L Total Bilirubin 0.3 mg/dL (0.2-1.0) Aspartate Amino Transferase (AST) 58 U/L (15-37) H Alanine Aminotransferase (ALT) 45 U/L (16-63) Alkaline Phosphatase 79 U/L (46-116) Total Protein 5.9 g/dL (6.4-8.2) L Albumin 2.6 g/dL (3.4-5.0) L Albumin/Globulin Ratio 0.8 (1.0-1.7) L Glucose (Fingerstick) 115 mg/dL (70-99) H Current Medications: Meds: Current Medications Medications (Trade) Dose Ordered Sig/Mary Route PRN Reason Start Time Stop Time Status Last Admin Dose Admin Aspirin (Aspirin Chewable) 81 mg DAILY PO 05/14/21 09:00 05/14/21 08:50 Finasteride (Proscar) 5 mg DAILY PO 05/14/21 09:00 05/14/21 08:53 Levothyroxine Sodium (Synthroid) 75 mcg DAILY06 PO 05/14/21 06:00 05/14/21 06:14 Mirabegron (Myrbetriq) 25 mg DAILY PO 05/14/21 09:00 05/14/21 08:55 Pantoprazole Sodium (Protonix) 40 mg DAILY PO 05/14/21 09:00 05/14/21 08:50 Spironolactone (Aldactone) 25 mg Q48H PO 05/14/21 09:00 05/14/21 08:52 Lisinopril (Prinivil) 40 mg DAILY PO 05/14/21 09:00 05/14/21 08:54 Cyanocobalamin (Vitamin B-12) 1,000 mcg 1200 PO 05/14/21 12:00 05/14/21 11:38 Multivitamins/ Calcium (Thera-M Plus) 1 tab DAILY PO 05/14/21 09:00 05/14/21 08:53 Sertraline HCl (Zoloft) 25 mg DAILY PO 05/14/21 09:00 05/14/21 21:00 DC 05/14/21 08:53 Warfarin Sodium (Coumadin) 7.5 mg 1X WARF ONCE PO 05/14/21 16:00 05/14/21 16:01 DC 05/14/21 15:54 I have reviewed the current psychotropics carefully including drug interactions. Risk benefit ratio favors no change other than as noted in my dictated progress note. Diagnosis: Problems: (1) Impulse control disorder, unspecified (2) Anxiety disorder, unspecified (3) Dementia, vascular, with depression (4) Dementia, vascular, with delusions (5) Dementia in Alzheimer's disease with depression (6) Dementia in Alzheimer's disease with delusions (7) Dementia of the Alzheimer's type with early onset with behavioral disturbance (8) Major neurocognitive disorder JAE HERNANDEZ MD May 14, 2021 21:26
--- NOTE | 2021-05-14 21:44 | PN ---
DATE: 05/14/2021 SUBJECTIVE: The patient is resting, slightly propped up in bed, in no apparent respiratory distress. He is very combative and uncooperative. He pulled about 5 IV lines already; however, he continued to be asymptomatic. He has no fever for the last 48 hours. White cell count is normal and his serum sodium is getting slowly better. Also his kidney function is improving. PHYSICAL EXAMINATION: GENERAL: When I examined him this afternoon, he was pale, not jaundiced, cyanosed. No lymphadenopathy, no thyromegaly, no jugular venous distention. No limb edema. VITAL SIGNS: Her heart rate was 82, blood pressure was 139/78, temperature 97.5, respiratory rate 20, and oxygen saturation was 94% on room air. The rest of clinical exam stable. His intake and output are incompletely recorded. LABORATORY DATA: This morning showed a serum sodium 147, potassium 3.9, chloride 113, bicarbonate 20, anion gap of 14, BUN 58, creatinine 2.3. Estimated GFR was 27 mL per minute. His glucose 151, calcium was 7.6. Total bilirubin, ALT, alkaline phosphatase are normal. AST was 58. His total protein 5.9, albumin was 2.6, his white cell count was 7500, hemoglobin 12, hematocrit 37, MCV 95 and platelet count of 132,000. Prothrombin time and INR is still subtherapeutic. Urinalysis was essentially unremarkable and his influenza A and B were negative. ASSESSMENT: 1. Asymptomatic coronavirus infection. 2. The patient has multiple other medical problems including: A. Hyponatremia that is slowly improving. B. Acute on chronic kidney disease, slowly improving. C. Gastroesophageal reflux disease. D. Hypertension. E. Hyperlipidemia. F. Benign prostatic hypertrophy. PLAN: To continue with all his medications including oral Keflex. Continue with dexamethasone and azithromycin. Continue to monitor his PT/INR and adjust Coumadin to maintain INR between 2-2.5. Scan his bladder and if necessary, straight cath him as I do not think he is a candidate for indwelling Ortiz catheter as he will probably pull it likely due to all his IV lines. AMM/EKT DR: MAXIMILIANO/mohinder TID: [id number]
--- NOTE | 2021-05-14 22:49 | NUR ---
Patient has been restless, confused and forgetful when verbally redirected. Bed alarm was sounding and patient was found to be on the edge of the bed, pulling at his brief. Brief was mostly off, brief, bedding and chux were wet with urine. Brief and bedding changed, patient was cooperative but had to be reminded several times to not try to get up from bed. Patient took HS medications crushed in applesauce. He was compliant, and drank nectar thick water with them. Patient given PRN trazodone and zyprexa for restlessness and to aid with sleep. Patient has been asleep when checked on hourly rounds.
--- NOTE | 2021-05-15 03:27 | NUR ---
Patient yelling and shaking the bed rail. Nurse in to see what patient needed several times. Patient is unable to state what he wants, his words are jumbled at this time. Patient given a snack of applesauce and a drink, patient states he does not want to be in bed, he does not think it is night time. Patient also yelling "Help Me". Patient is disorganized, restless and agitated. PRN zyprexa given per order for restless/agitation. Will continue to monitor.
[2021-05-15 05:36] VITALS: BP 117/60
[2021-05-15] MEDS: LEVOTHYROXINE 75 MCG TABLET PO SCH (06:13)
[2021-05-15 06:33] LABS: CALCIUM 7.4 mg/dL (8.5-10.1); POTASSIUM 4.1 mmol/L (3.5-5.1)
--- NOTE | 2021-05-15 06:58 | PDOC ---
Exam Note: Brennen Note: This note is a late entry for 05/13/2021 covers elements not covered in my initial note. Subjective: The patient was reviewed by the nursing staff, reviewed the chart and interim history. Discussed with Elise BEE. The patient remains confused, has been pulling out his IV line. Nursing staff is making considered effort to help compliance. Last night he was running fever of 101 degrees F but no fever today and his O2 sats are stable on room air today. Review of Systems: Per nursing report no CV, , pulmonary, eye, ENT system symptoms on review. Reliability poor. Mental Status Exam: The patient is oriented to himself. Insight and judgment, recent and remote memory, attention and concentration, fund of knowledge is poor consistent with his diagnoses. Laboratory Data: Reviewed. Impression: Major neurocognitive disorder, Alzheimer, vascular with delusion, depression, behavioral disturbance. Anxiety disorder unspecified. Impulse control disorder unspecified. Plan: We have reduced the patients atypical antipsychotics. We will maintain at a lower dosage unless agitation resurfaces. We will continue to reassess this. Assessment: Vital Signs/I&O: Vital Signs Date Time Temp Pulse Resp B/P (MAP) Pulse Ox O2 Delivery O2 Flow Rate FiO2 05/15/21 05:36 97.6 83 20 117/60 (79) 92 Room Air I & O 05/14/21 05/14/21 05/15/21 14:59 22:59 06:59 Intake Total 600 ml 480 ml 0 ml Balance 600 ml 480 ml 0 ml Labs: Laboratory Tests Test 05/14/21 07:57 05/15/21 05:53 Glucose (Fingerstick) 115 mg/dL (70-99) H Prothrombin Time 15.4 SEC (9.4-11.4) H Prothrombin Time INR 1.5 (0.9-1.1) H Sodium Level 147 mmol/L (136-145) H Potassium Level 4.1 mmol/L (3.5-5.1) Chloride Level 113 mmol/L (98-107) H Carbon Dioxide Level 22 mmol/L (21-32) Anion Gap 12 (6-14) Blood Urea Nitrogen 66 mg/dL (8-26) H Creatinine 2.0 mg/dL (0.7-1.3) H Estimated GFR (Cockcroft-Gault) 32.0 Glucose Level 191 mg/dL (70-99) H Calcium Level 7.4 mg/dL (8.5-10.1) L Current Medications: Meds: Laboratory Tests Test 05/14/21 07:57 05/15/21 05:53 Glucose (Fingerstick) 115 mg/dL Prothrombin Time 15.4 SEC Prothromb Time International Ratio 1.5 Sodium Level 147 mmol/L Potassium Level 4.1 mmol/L Chloride Level 113 mmol/L Carbon Dioxide Level 22 mmol/L Anion Gap 12 Blood Urea Nitrogen 66 mg/dL Creatinine 2.0 mg/dL Estimated GFR (Cockcroft-Gault) 32.0 Glucose Level 191 mg/dL Calcium Level 7.4 mg/dL Current Medications Medications (Trade) Dose Ordered Sig/Mary Route PRN Reason Start Time Stop Time Status Last Admin Dose Admin Dextrose 1,000 ml @ 100 mls/hr Q10H IV 05/12/21 17:00 05/12/21 18:04 DC Ceftriaxone Sodium 1 gm/ Sodium Chloride 50 ml @ 100 mls/hr Q24H IV 05/12/21 20:00 05/12/21 18:04 DC Dexamethasone Sodium Phosphate (Decadron) 12 mg DAILY IV 05/13/21 09:00 05/12/21 18:04 DC Enoxaparin Sodium (Lovenox 30mg Syringe) 30 mg Q24H SQ 05/12/21 17:00 05/12/21 18:25 DC Cephalexin HCl (Keflex) 500 mg TID PO 05/12/21 21:00 05/14/21 21:07 Azithromycin (Zithromax) 500 mg DAILY PO 05/13/21 09:00 05/14/21 08:50 Dexamethasone (Decadron) 12 mg DAILYWBKFT PO 05/13/21 08:00 05/14/21 08:49 Olanzapine (ZyPREXA ZYDIS) 2.5 mg PRN Q2HRS PRN PO PSYCHOSIS 05/12/21 18:15 05/15/21 03:26 Quetiapine Fumarate (SEROquel) 25 mg BID PO 05/12/21 21:00 05/14/21 21:06 Dextrose 1,000 ml @ 100 mls/hr Q10H IV 05/12/21 22:45 05/13/21 11:16 Acetaminophen (Tylenol) 650 mg PRN Q6HRS PRN PO MILD PAIN / TEMP > 100.3'F 05/12/21 22:45 05/12/21 22:51 Lactobacillus Rhamnosus (Culturelle) 1 cap BID PO 05/13/21 21:00 05/14/21 21:06 Allopurinol (Zyloprim) 100 mg BID PO 05/13/21 21:00 05/14/21 21:06 Aspirin (Aspirin Chewable) 81 mg DAILY PO 05/14/21 09:00 05/14/21 08:50 Finasteride (Proscar) 5 mg DAILY PO 05/14/21 09:00 05/14/21 08:53 Levothyroxine Sodium (Synthroid) 75 mcg DAILY06 PO 05/14/21 06:00 05/15/21 06:13 Mirabegron (Myrbetriq) 25 mg DAILY PO 05/14/21 09:00 05/14/21 08:55 Pantoprazole Sodium (Protonix) 40 mg DAILY PO 05/14/21 09:00 05/14/21 08:50 Spironolactone (Aldactone) 25 mg Q48H PO 05/14/21 09:00 05/14/21 08:52 Atorvastatin Calcium (Lipitor) 80 mg QHS PO 05/13/21 21:00 05/14/21 21:06 Lisinopril (Prinivil) 40 mg DAILY PO 05/14/21 09:00 05/14/21 08:54 Cyanocobalamin (Vitamin B-12) 1,000 mcg 1200 PO 05/14/21 12:00 05/14/21 11:38 Gabapentin (Neurontin) 400 mg TID PO 05/13/21 21:00 05/14/21 21:07 Multivitamins/ Calcium (Thera-M Plus) 1 tab DAILY PO 05/14/21 09:00 05/14/21 08:53 Dexamethasone (Maxidex) 1 drop BID OU 05/13/21 21:00 05/14/21 21:07 Multi-Ingredient Ointment (Analgesic Rogers) 1 mechelle PRN QID PRN TP MUSCLE PAIN 05/13/21 16:45 Al Hydroxide/Mg Hydroxide (Mylanta Plus Xs) 15 ml PRN AFTMEALHC PRN PO DYSPEPSIA 05/13/21 16:45 Magnesium Hydroxide (Milk Of Magnesia) 2,400 mg PRN QHS PRN PO CONSTIPATION 05/13/21 16:45 Trazodone HCl (Desyrel) 50 mg PRN QHS PRN PO insomnia 05/13/21 16:45 05/14/21 21:07 Nystatin (Nystop) 1 mechelle PRN BID PRN TP TO BILATERAL GROINS 05/13/21 16:45 Sertraline HCl (Zoloft) 25 mg DAILY PO 05/14/21 09:00 05/14/21 21:00 DC 05/14/21 08:53 Sertraline HCl (Zoloft) 50 mg DAILY PO 05/15/21 09:00 Warfarin Sodium (Coumadin Per Pharmacy) 1 each PRN DAILY PRN MC SEE COMMENTS 05/13/21 17:00 05/14/21 14:38 Warfarin Sodium (Coumadin) 7.5 mg 1X ONCE PO 05/13/21 17:00 05/13/21 17:01 DC 05/13/21 17:14 Warfarin Sodium (Coumadin) 7.5 mg 1X WARF ONCE PO 05/14/21 16:00 05/14/21 16:01 DC 05/14/21 15:54 Current Medications Medications (Trade) Dose Ordered Sig/Mary Route PRN Reason Start Time Stop Time Status Last Admin Dose Admin Aspirin (Aspirin Chewable) 81 mg DAILY PO 05/14/21 09:00 05/14/21 08:50 Finasteride (Proscar) 5 mg DAILY PO 05/14/21 09:00 05/14/21 08:53 Mirabegron (Myrbetriq) 25 mg DAILY PO 05/14/21 09:00 05/14/21 08:55 Pantoprazole Sodium (Protonix) 40 mg DAILY PO 05/14/21 09:00 05/14/21 08:50 Spironolactone (Aldactone) 25 mg Q48H PO 05/14/21 09:00 05/14/21 08:52 Lisinopril (Prinivil) 40 mg DAILY PO 05/14/21 09:00 05/14/21 08:54 Cyanocobalamin (Vitamin B-12) 1,000 mcg 1200 PO 05/14/21 12:00 05/14/21 11:38 Multivitamins/ Calcium (Thera-M Plus) 1 tab DAILY PO 05/14/21 09:00 05/14/21 08:53 Sertraline HCl (Zoloft) 25 mg DAILY PO 05/14/21 09:00 05/14/21 21:00 DC 05/14/21 08:53 Warfarin Sodium (Coumadin) 7.5 mg 1X WARF ONCE PO 05/14/21 16:00 05/14/21 16:01 DC 05/14/21 15:54 I have reviewed the current psychotropics carefully including drug interactions. Risk benefit ratio favors no change other than as noted in my dictated progress note. Diagnosis: Problems: (1) Impulse control disorder, unspecified (2) Anxiety disorder, unspecified (3) Dementia, vascular, with depression (4) Dementia, vascular, with delusions (5) Dementia in Alzheimer's disease with depression (6) Dementia in Alzheimer's disease with delusions (7) Dementia of the Alzheimer's type with early onset with behavioral disturbance (8) Major neurocognitive disorder JAE HERNANDEZ MD May 15, 2021 06:58
[2021-05-15] MEDS: AZITHROMYCIN 250 MG TABLET. PO SCH (08:44)
[2021-05-15] MEDS: LACTOBACILLUS RHAMNOSUS GG 1 CAPSULE. PO SCH ×2 (08:44→20:01)
[2021-05-15] MEDS: MULTIVITAMIN with MINERAL TABLET. PO SCH (08:44)
[2021-05-15] MEDS: FINASTERIDE 5 MG TABLET. PO SCH (08:44)
[2021-05-15] MEDS: DEXAMETHASONE 4 MG TABLET PO SCH (08:44)
[2021-05-15] MEDS: CEPHALEXIN 250 MG CAPSULE PO SCH ×3 (08:44→20:00)
[2021-05-15] MEDS: ASPIRIN CHEWABLE 81 MG TABLET. PO SCH (08:44)
[2021-05-15] MEDS: QUEtiapine 25 MG TABLET. PO SCH ×2 (08:45→20:01)
[2021-05-15] MEDS: SERTRALINE 50 MG TABLET. PO SCH (08:45)
[2021-05-15] MEDS: LISINOPRIL 20 MG TABLET PO SCH (08:45)
[2021-05-15] MEDS: GABAPENTIN 400 MG CAPSULE. PO SCH ×3 (08:46→20:01)
[2021-05-15] MEDS: DEXAMETHASONE 0.1% OPHTH SOLUTION 5ML BOTTLE. OU SCH ×2 (08:46→20:00)
[2021-05-15] MEDS: MIRABEGRON 25 MG TAB.ER.24H PO SCH (09:00)
[2021-05-15] MEDS: ALLOPURINOL 100 MG TABLET. PO SCH ×2 (09:18→20:01)
[2021-05-15] MEDS: IV DEXTROSE 5% 1,000 ML IV SCH ×2 (10:45→20:45)
[2021-05-15 11:27] VITALS: BP 124/84
[2021-05-15] MEDS: CYANOCOBALAMIN (VITAMIN B-12) 1,000 MCG TABLET. PO SCH (12:00)
[2021-05-15 14:55] VITALS: BP 126/80
--- NOTE | 2021-05-15 15:36 | NUR ---
Nursing notes PT in bed, verbalized he needs water. PT was given thickened liquids 2 cups. Morning assessments done, medications administered per doctors orders. Doctor ordered for more fluids to be given to the PT since he cannot keep an IV in place. PT was given 2 240ml cups of thickened Ice tea and a 300mls of tomatoes soup. PT was later given 240 of cranberry juice (thickened). PT in bed, bed locked and alarm on, watching TV. PT told to call the nurse if he has any needs. Will continue to monitor.
[2021-05-15] MEDS ORDERED: WARFARIN 7.5 MG TABLET. PO ONE (16:00)
[2021-05-15 19:56] VITALS: BP 149/85
[2021-05-15] MEDS: ATORVASTATIN CALCIUM 20 MG TABLET PO SCH (20:00)
[2021-05-15] MEDS: traZODone 50 MG TABLET. PO PRN (20:01)
[2021-05-15] MEDS: ACETAMINOPHEN 325 MG TABLET PO PRN (20:01)
--- NOTE | 2021-05-15 21:10 | PDOC ---
Exam Note: Brennen Note: Please also refer to the separate dictated note~for this date of service dictated separately.~Patient seen individually. Discussed the patient with Nursing staff reviewed the chart.~Reviewed interim history and current functioning. Reviewed vital signs,~Labs/ Radiology~and current medications noted below. Continue current treatment with the changes noted in the dictated addendum note Assessment: Vital Signs/I&O: Vital Signs Date Time Temp Pulse Resp B/P (MAP) Pulse Ox O2 Delivery O2 Flow Rate FiO2 05/15/21 19:56 98.2 87 20 149/85 (106) 92 Room Air I & O 05/14/21 05/14/21 05/15/21 15:00 23:00 07:00 Intake Total 600 ml 480 ml 0 ml Balance 600 ml 480 ml 0 ml Labs: Laboratory Tests Test 05/15/21 05:53 Prothrombin Time 15.4 SEC (9.4-11.4) H Prothrombin Time INR 1.5 (0.9-1.1) H Sodium Level 147 mmol/L (136-145) H Potassium Level 4.1 mmol/L (3.5-5.1) Chloride Level 113 mmol/L (98-107) H Carbon Dioxide Level 22 mmol/L (21-32) Anion Gap 12 (6-14) Blood Urea Nitrogen 66 mg/dL (8-26) H Creatinine 2.0 mg/dL (0.7-1.3) H Estimated GFR (Cockcroft-Gault) 32.0 Glucose Level 191 mg/dL (70-99) H Calcium Level 7.4 mg/dL (8.5-10.1) L Current Medications: Meds: Current Medications Medications (Trade) Dose Ordered Sig/Mary Route PRN Reason Start Time Stop Time Status Last Admin Dose Admin Sertraline HCl (Zoloft) 50 mg DAILY PO 05/15/21 09:00 05/15/21 08:45 Warfarin Sodium (Coumadin) 7.5 mg 1X WARF ONCE PO 05/15/21 16:00 05/15/21 16:02 DC 05/15/21 16:00 I have reviewed the current psychotropics carefully including drug interactions. Risk benefit ratio favors no change other than as noted in my dictated progress note. 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
--- NOTE | 2021-05-15 21:55 | PN ---
DATE: 05/15/2021 SUBJECTIVE: The patient is resting, slightly propped up in bed, no apparent distress. He has continued to be confused, but denied any complaint. Unfortunately, he pulled about 5 IV lines and therefore, we decided to push fluids as he is clearly dehydrated and hypernatremic. However, he remained asymptomatic in terms of his COVID-19 infection. PHYSICAL EXAMINATION: GENERAL: When I examined him this morning, he was pale, but not jaundiced or cyanosed. No lymphadenopathy, no thyromegaly, no jugular venous distention. No limb edema. VITAL SIGNS: Her heart rate was 83, blood pressure was 117/60, temperature 97.6, respiratory rate was 20 and oxygen saturation was 92% on room air. HEAD, EYES, EARS, NOSE, AND THROAT: Normocephalic, atraumatic. NECK: Supple. HEART: Showed normal first and second heart sounds. No gallop, rub or murmur. CHEST: Clear to auscultation. No crepitation or rhonchi. ABDOMEN: Distended, soft, nontender. NEUROLOGIC: He was demented, but all his cranial nerves are intact. He moves all extremities without difficulties. He is mostly bedbound, wheelchair bound. His intake was 2550, output was 450. LABORATORY DATA: His lab work this morning showed the serum sodium was 147, potassium 4.1, chloride 113, bicarbonate 22, anion gap of 12, BUN 66 and creatinine 2, estimated GFR was 32 mL per minute. His glucose was 191 and calcium was 7.4. ASSESSMENT: 1. Asymptomatic COVID-19 infection. 2. The patient has multiple other medical problems including: A. Hypernatremia, that is slowly improving. B. [id number] kidney injury, slowly improving. His creatinine came down from 2.8 to 2. C. Gastroesophageal reflux disease. D. Hypertension. E. Hyperlipidemia. F. Benign prostatic hypertrophy. PLAN: Continue with all his medications. Continue with azithromycin, dexamethasone and ceftriaxone. Continue with Coumadin and adjust the dose to maintain INR between 2-2.5. Scan the bladder and if necessary, straight cath him as it is not safe to put an indwelling Ortiz catheter given his confusion and combativeness. MAXIMILIANO/DEJA DR: Jomar TID: [id number]
[2021-05-16] MEDS: LEVOTHYROXINE 75 MCG TABLET PO SCH (05:51)
[2021-05-16] MEDS: ACETAMINOPHEN 325 MG TABLET PO PRN ×2 (05:52→20:19)
[2021-05-16 06:16] VITALS: BP 125/81
[2021-05-16] MEDS: IV DEXTROSE 5% 1,000 ML IV SCH ×2 (06:45→21:19)
[2021-05-16 07:07] LABS: CALCIUM 7.5 mg/dL (8.5-10.1); CREATININE 1.8 mg/dL (0.7-1.3); GFR 36.1; POTASSIUM 4.2 mmol/L (3.5-5.1)
--- NOTE | 2021-05-16 07:29 | PDOC ---
Exam Note: Brennen Note: This note is a late entry for 05/14/2021 covers elements not covered in my initial note. Subjective: The patient was reviewed by the nursing staff, reviewed the chart and interim history. He has been screaming at times per nursing report, pulling out his IV 5 times, ripped it out, spitting out his medications, pulling his clothes and sheets off. He has been given p.r.n.s., and does somewhat better with this. Review of Systems: Per nursing report no CV, , pulmonary, eye, ENT system symptoms on review. Mental Status Exam: Per nursing review, the patient is oriented to himself. Insight and judgment, recent and remote memory, attention and concentration, fund of knowledge is poor consistent with his diagnoses. Laboratory Data: Reviewed. Impression: Major neurocognitive disorder, Alzheimer, vascular with delusion, depression, behavioral disturbance. Anxiety disorder unspecified. Impulse control disorder unspecified. Plan: No change from initial note. Assessment: Vital Signs/I&O: Vital Signs Date Time Temp Pulse Resp B/P (MAP) Pulse Ox O2 Delivery O2 Flow Rate FiO2 05/16/21 06:16 97.8 80 18 125/81 (96) 91 Room Air I & O 05/15/21 05/15/21 05/16/21 15:00 23:00 07:00 Intake Total 880 ml 720 ml 320 ml Balance 880 ml 720 ml 320 ml Labs: Laboratory Tests Test 05/16/21 06:22 Sodium Level 149 mmol/L (136-145) H Potassium Level 4.2 mmol/L (3.5-5.1) Chloride Level 115 mmol/L (98-107) H Carbon Dioxide Level 22 mmol/L (21-32) Anion Gap 12 (6-14) Blood Urea Nitrogen 62 mg/dL (8-26) H Creatinine 1.8 mg/dL (0.7-1.3) H Estimated GFR (Cockcroft-Gault) 36.1 Glucose Level 138 mg/dL (70-99) H Calcium Level 7.5 mg/dL (8.5-10.1) L Current Medications: Meds: Laboratory Tests Test 05/16/21 06:22 Sodium Level 149 mmol/L Potassium Level 4.2 mmol/L Chloride Level 115 mmol/L Carbon Dioxide Level 22 mmol/L Anion Gap 12 Blood Urea Nitrogen 62 mg/dL Creatinine 1.8 mg/dL Estimated GFR (Cockcroft-Gault) 36.1 Glucose Level 138 mg/dL Calcium Level 7.5 mg/dL Current Medications Medications (Trade) Dose Ordered Sig/Mary Route PRN Reason Start Time Stop Time Status Last Admin Dose Admin Dextrose 1,000 ml @ 100 mls/hr Q10H IV 05/12/21 17:00 05/12/21 18:04 DC Ceftriaxone Sodium 1 gm/ Sodium Chloride 50 ml @ 100 mls/hr Q24H IV 05/12/21 20:00 05/12/21 18:04 DC Dexamethasone Sodium Phosphate (Decadron) 12 mg DAILY IV 05/13/21 09:00 05/12/21 18:04 DC Enoxaparin Sodium (Lovenox 30mg Syringe) 30 mg Q24H SQ 05/12/21 17:00 05/12/21 18:25 DC Cephalexin HCl (Keflex) 500 mg TID PO 05/12/21 21:00 05/15/21 20:00 Azithromycin (Zithromax) 500 mg DAILY PO 05/13/21 09:00 05/15/21 08:44 Dexamethasone (Decadron) 12 mg DAILYWBKFT PO 05/13/21 08:00 05/15/21 08:44 Olanzapine (ZyPREXA ZYDIS) 2.5 mg PRN Q2HRS PRN PO PSYCHOSIS 05/12/21 18:15 05/16/21 05:51 Quetiapine Fumarate (SEROquel) 25 mg BID PO 05/12/21 21:00 05/15/21 20:01 Dextrose 1,000 ml @ 100 mls/hr Q10H IV 05/12/21 22:45 05/13/21 11:16 Acetaminophen (Tylenol) 650 mg PRN Q6HRS PRN PO MILD PAIN / TEMP > 100.3'F 05/12/21 22:45 05/16/21 05:52 Lactobacillus Rhamnosus (Culturelle) 1 cap BID PO 05/13/21 21:00 05/15/21 20:01 Allopurinol (Zyloprim) 100 mg BID PO 05/13/21 21:00 05/15/21 20:01 Aspirin (Aspirin Chewable) 81 mg DAILY PO 05/14/21 09:00 05/15/21 08:44 Finasteride (Proscar) 5 mg DAILY PO 05/14/21 09:00 05/15/21 08:44 Levothyroxine Sodium (Synthroid) 75 mcg DAILY06 PO 05/14/21 06:00 05/16/21 05:51 Mirabegron (Myrbetriq) 25 mg DAILY PO 05/14/21 09:00 05/14/21 08:55 Pantoprazole Sodium (Protonix) 40 mg DAILY PO 05/14/21 09:00 05/15/21 08:39 DC 05/14/21 08:50 Spironolactone (Aldactone) 25 mg Q48H PO 05/14/21 09:00 05/14/21 08:52 Atorvastatin Calcium (Lipitor) 80 mg QHS PO 05/13/21 21:00 05/15/21 20:00 Lisinopril (Prinivil) 40 mg DAILY PO 05/14/21 09:00 05/15/21 08:45 Cyanocobalamin (Vitamin B-12) 1,000 mcg 1200 PO 05/14/21 12:00 05/15/21 12:00 Gabapentin (Neurontin) 400 mg TID PO 05/13/21 21:00 05/15/21 20:01 Multivitamins/ Calcium (Thera-M Plus) 1 tab DAILY PO 05/14/21 09:00 05/15/21 08:44 Dexamethasone (Maxidex) 1 drop BID OU 05/13/21 21:00 05/15/21 20:00 Multi-Ingredient Ointment (Analgesic [place]) 1 mechelle PRN QID PRN TP MUSCLE PAIN 05/13/21 16:45 Al Hydroxide/Mg Hydroxide (Mylanta Plus Xs) 15 ml PRN AFTMEALHC PRN PO DYSPEPSIA 05/13/21 16:45 Magnesium Hydroxide (Milk Of Magnesia) 2,400 mg PRN QHS PRN PO CONSTIPATION 05/13/21 16:45 Trazodone HCl (Desyrel) 50 mg PRN QHS PRN PO insomnia 05/13/21 16:45 05/15/21 20:01 Nystatin (Nystop) 1 mechelle PRN BID PRN TP TO BILATERAL GROINS 05/13/21 16:45 Sertraline HCl (Zoloft) 25 mg DAILY PO 05/14/21 09:00 05/14/21 21:00 DC 05/14/21 08:53 Sertraline HCl (Zoloft) 50 mg DAILY PO 05/15/21 09:00 05/15/21 08:45 Warfarin Sodium (Coumadin Per Pharmacy) 1 each PRN DAILY PRN MC SEE COMMENTS 05/13/21 17:00 05/14/21 14:38 Warfarin Sodium (Coumadin) 7.5 mg 1X ONCE PO 05/13/21 17:00 05/13/21 17:01 DC 05/13/21 17:14 Warfarin Sodium (Coumadin) 7.5 mg 1X WARF ONCE PO 05/14/21 16:00 05/14/21 16:01 DC 05/14/21 15:54 Warfarin Sodium (Coumadin) 7.5 mg 1X WARF ONCE PO 05/15/21 16:00 05/15/21 16:02 DC 05/15/21 16:00 Pantoprazole Sodium (Protonix) 40 mg DAILYAC PO 05/16/21 07:30 Current Medications Medications (Trade) Dose Ordered Sig/Mary Route PRN Reason Start Time Stop Time Status Last Admin Dose Admin Sertraline HCl (Zoloft) 50 mg DAILY PO 05/15/21 09:00 05/15/21 08:45 Warfarin Sodium (Coumadin) 7.5 mg 1X WARF ONCE PO 05/15/21 16:00 05/15/21 16:02 DC 05/15/21 16:00 I have reviewed the current psychotropics carefully including drug interactions. Risk benefit ratio favors no change other than as noted in my dictated progress note. 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
--- NOTE | 2021-05-16 08:09 | PDOC ---
Exam Note: Brennen Note: This note is a late entry for 05/15/2021 covers elements not covered in my initial note. Subjective: The patient was reviewed by the nursing staff, reviewed the chart and interim history. The patient has not needed straight cath. IV has been removed and he is pulling it out. He has been taking oral fluids. INR is 1.5. Review of Systems: Per nursing report no CV, , pulmonary, eye, ENT system symptoms on review. Reliability poor. Mental Status Exam: The patient is oriented to himself. Insight and judgment, recent and remote memory, attention and concentration, fund of knowledge is poor consistent with his diagnoses. Laboratory Data: Reviewed. Impression: Major neurocognitive disorder, Alzheimer, vascular with delusion, depression, behavioral disturbance. Anxiety disorder unspecified. Impulse control disorder unspecified. Plan: No change from initial note. Assessment: Vital Signs/I&O: Vital Signs Date Time Temp Pulse Resp B/P (MAP) Pulse Ox O2 Delivery O2 Flow Rate FiO2 05/16/21 06:16 97.8 80 18 125/81 (96) 91 Room Air I & O 05/15/21 05/15/21 05/16/21 15:00 23:00 07:00 Intake Total 880 ml 720 ml 320 ml Balance 880 ml 720 ml 320 ml Labs: Laboratory Tests Test 05/16/21 06:22 Prothrombin Time 24.0 SEC (9.4-11.4) H Prothrombin Time INR 2.3 (0.9-1.1) H Sodium Level 149 mmol/L (136-145) H Potassium Level 4.2 mmol/L (3.5-5.1) Chloride Level 115 mmol/L (98-107) H Carbon Dioxide Level 22 mmol/L (21-32) Anion Gap 12 (6-14) Blood Urea Nitrogen 62 mg/dL (8-26) H Creatinine 1.8 mg/dL (0.7-1.3) H Estimated GFR (Cockcroft-Gault) 36.1 Glucose Level 138 mg/dL (70-99) H Calcium Level 7.5 mg/dL (8.5-10.1) L Current Medications: Meds: Current Medications Medications (Trade) Dose Ordered Sig/Mary Route PRN Reason Start Time Stop Time Status Last Admin Dose Admin Sertraline HCl (Zoloft) 50 mg DAILY PO 05/15/21 09:00 05/15/21 08:45 Warfarin Sodium (Coumadin) 7.5 mg 1X WARF ONCE PO 05/15/21 16:00 05/15/21 16:02 DC 05/15/21 16:00 I have reviewed the current psychotropics carefully including drug interactions. Risk benefit ratio favors no change other than as noted in my dictated progress note. 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
[2021-05-16] MEDS: DEXAMETHASONE 4 MG TABLET PO SCH (08:12)
[2021-05-16] MEDS: AZITHROMYCIN 250 MG TABLET. PO SCH (08:12)
[2021-05-16] MEDS: MULTIVITAMIN with MINERAL TABLET. PO SCH (08:13)
[2021-05-16] MEDS: FINASTERIDE 5 MG TABLET. PO SCH (08:13)
[2021-05-16] MEDS: ALLOPURINOL 100 MG TABLET. PO SCH ×2 (08:13→20:18)
[2021-05-16] MEDS: SERTRALINE 50 MG TABLET. PO SCH (08:13)
[2021-05-16] MEDS: LISINOPRIL 20 MG TABLET PO SCH (08:13)
[2021-05-16] MEDS: ASPIRIN CHEWABLE 81 MG TABLET. PO SCH (08:13)
[2021-05-16] MEDS: PANTOPRAZOLE 40 MG TABLET. PO SCH (08:13)
[2021-05-16] MEDS: GABAPENTIN 400 MG CAPSULE. PO SCH ×3 (08:14→20:19)
[2021-05-16] MEDS: SPIRONOLACTONE 25 MG TABLET PO SCH (08:14)
[2021-05-16] MEDS: LACTOBACILLUS RHAMNOSUS GG 1 CAPSULE. PO SCH ×2 (08:14→20:19)
[2021-05-16] MEDS: QUEtiapine 25 MG TABLET. PO SCH ×2 (08:14→20:20)
[2021-05-16] MEDS: CEPHALEXIN 250 MG CAPSULE PO SCH ×3 (08:14→20:19)
[2021-05-16] MEDS: MIRABEGRON 25 MG TAB.ER.24H PO SCH (08:15)
[2021-05-16] MEDS: DEXAMETHASONE 0.1% OPHTH SOLUTION 5ML BOTTLE. OU SCH ×2 (08:15→21:00)
[2021-05-16] MEDS: CYANOCOBALAMIN (VITAMIN B-12) 1,000 MCG TABLET. PO SCH (13:06)
[2021-05-16] MEDS ORDERED: WARFARIN 5 MG TABLET. PO ONE (16:00)
[2021-05-16 16:36] VITALS: BP 117/66
--- NOTE | 2021-05-16 19:59 | PN ---
DATE: 05/16/2021 SUBJECTIVE: The patient is resting, slightly propped up in bed, in no apparent distress. He continued to be confused, agitated at times. Unfortunately, he has pulled about 5 IV lines and his sodium continued to be high, although his kidney function has steadily improved and the creatinine came down from 2.8 to 1.9. He continued to be asymptomatic. Has no fever, no shortness of breath, no cough or hypoxia. PHYSICAL EXAMINATION: GENERAL: When I examined him, he looked well and was clearly in no apparent respiratory distress. There is no pallor, jaundice, cyanosis, or thyromegaly. No jugular venous distention. No lower limb edema. VITAL SIGNS: His heart rate was 80, blood pressure was 125/81, temperature 97.8, respiratory rate was 18, and oxygen saturation was 91% on room air. HEAD, EYES, EARS, NOSE, AND THROAT: Normocephalic, atraumatic. NECK: Supple. HEART: Normal first and second heart sounds. No gallop, rub, or murmur. CHEST: Clear to auscultation. No crepitation or rhonchi. ABDOMEN: Distended, soft, nontender. NEUROLOGIC: He is demented but without any obvious lateralizing sign. He unfortunately is mostly bedbound, wheelchair bound, as he is very unsteady on his feet. His intake was 1080, no output was recorded. LABORATORY DATA: His chemistry this morning showed a serum sodium went up to 149, potassium 4.2, chloride 115, bicarbonate 22, anion gap of 12, BUN 62, creatinine was 1.8. Estimated GFR was 36 mL per minute. His glucose 138 and calcium was 7.5. ASSESSMENT: 1. Asymptomatic COVID-19 infection. 2. The patient has multiple other medical problems including: A. Hypernatremia that has not really improved. B. Vkuov-[id number] kidney injury, slowly improving. His creatinine is down to 1.8. C. Gastroesophageal reflux disease. D. Hypertension. E. Hyperlipidemia. F. Benign prostatic hypertrophy. PLAN: To continue with all his medication. Continue with dexamethasone. Continue with Zithromax and ceftriaxone. Continue with Coumadin. Adjust the dose to maintain an INR between 2-2.5. Scan the bladder and if necessary, straight cath him as it is not safe for him to have an indwelling Ortiz catheter given his confusion and combativeness. CHRISTINE DR: Jomar TID: [id number]
[2021-05-16 20:00] VITALS: BP 144/84
[2021-05-16] MEDS: ATORVASTATIN CALCIUM 20 MG TABLET PO SCH (20:19)
[2021-05-16] MEDS: NEOMY/BACITR/POLYMYXIN OINT PACKET. TP SCH (20:20)
[2021-05-16] MEDS: traZODone 50 MG TABLET. PO PRN (20:20)
--- NOTE | 2021-05-16 21:23 | PDOC ---
Exam Note: Brennen Note: Please also refer to the separate dictated note~for this date of service dictated separately.~Patient seen individually. Discussed the patient with Nursing staff reviewed the chart.~Reviewed interim history and current functioning. Reviewed vital signs,~Labs/ Radiology~and current medications noted below. Continue current treatment with the changes noted in the dictated addendum note Assessment: Vital Signs/I&O: Vital Signs Date Time Temp Pulse Resp B/P (MAP) Pulse Ox O2 Delivery O2 Flow Rate FiO2 05/16/21 20:00 97.6 96 18 144/84 (104) 96 Room Air I & O 05/15/21 05/15/21 05/16/21 14:59 22:59 06:59 Intake Total 880 ml 720 ml 320 ml Balance 880 ml 720 ml 320 ml Labs: Laboratory Tests Test 05/16/21 06:22 Prothrombin Time 24.0 SEC (9.4-11.4) H Prothrombin Time INR 2.3 (0.9-1.1) H Sodium Level 149 mmol/L (136-145) H Potassium Level 4.2 mmol/L (3.5-5.1) Chloride Level 115 mmol/L (98-107) H Carbon Dioxide Level 22 mmol/L (21-32) Anion Gap 12 (6-14) Blood Urea Nitrogen 62 mg/dL (8-26) H Creatinine 1.8 mg/dL (0.7-1.3) H Estimated GFR (Cockcroft-Gault) 36.1 Glucose Level 138 mg/dL (70-99) H Calcium Level 7.5 mg/dL (8.5-10.1) L Current Medications: Meds: Laboratory Tests Test 05/16/21 06:22 Prothrombin Time 24.0 SEC Prothromb Time International Ratio 2.3 Sodium Level 149 mmol/L Potassium Level 4.2 mmol/L Chloride Level 115 mmol/L Carbon Dioxide Level 22 mmol/L Anion Gap 12 Blood Urea Nitrogen 62 mg/dL Creatinine 1.8 mg/dL Estimated GFR (Cockcroft-Gault) 36.1 Glucose Level 138 mg/dL Calcium Level 7.5 mg/dL Current Medications Medications (Trade) Dose Ordered Sig/Mary Route PRN Reason Start Time Stop Time Status Last Admin Dose Admin Dextrose 1,000 ml @ 100 mls/hr Q10H IV 05/12/21 17:00 05/12/21 18:04 DC Ceftriaxone Sodium 1 gm/ Sodium Chloride 50 ml @ 100 mls/hr Q24H IV 05/12/21 20:00 05/12/21 18:04 DC Dexamethasone Sodium Phosphate (Decadron) 12 mg DAILY IV 05/13/21 09:00 05/12/21 18:04 DC Enoxaparin Sodium (Lovenox 30mg Syringe) 30 mg Q24H SQ 05/12/21 17:00 05/12/21 18:25 DC Cephalexin HCl (Keflex) 500 mg TID PO 05/12/21 21:00 05/16/21 20:19 Azithromycin (Zithromax) 500 mg DAILY PO 05/13/21 09:00 05/16/21 08:12 Dexamethasone (Decadron) 12 mg DAILYWBKFT PO 05/13/21 08:00 05/16/21 08:12 Olanzapine (ZyPREXA ZYDIS) 2.5 mg PRN Q2HRS PRN PO PSYCHOSIS 05/12/21 18:15 05/16/21 13:06 Quetiapine Fumarate (SEROquel) 25 mg BID PO 05/12/21 21:00 05/16/21 20:20 Dextrose 1,000 ml @ 100 mls/hr Q10H IV 05/12/21 22:45 05/16/21 21:19 Acetaminophen (Tylenol) 650 mg PRN Q6HRS PRN PO MILD PAIN / TEMP > 100.3'F 05/12/21 22:45 05/16/21 20:19 Lactobacillus Rhamnosus (Culturelle) 1 cap BID PO 05/13/21 21:00 05/16/21 20:19 Allopurinol (Zyloprim) 100 mg BID PO 05/13/21 21:00 05/16/21 20:18 Aspirin (Aspirin Chewable) 81 mg DAILY PO 05/14/21 09:00 05/16/21 08:13 Finasteride (Proscar) 5 mg DAILY PO 05/14/21 09:00 05/16/21 08:13 Levothyroxine Sodium (Synthroid) 75 mcg DAILY06 PO 05/14/21 06:00 05/16/21 05:51 Mirabegron (Myrbetriq) 25 mg DAILY PO 05/14/21 09:00 05/16/21 08:15 Pantoprazole Sodium (Protonix) 40 mg DAILY PO 05/14/21 09:00 05/15/21 08:39 DC 05/14/21 08:50 Spironolactone (Aldactone) 25 mg Q48H PO 05/14/21 09:00 05/16/21 08:14 Atorvastatin Calcium (Lipitor) 80 mg QHS PO 05/13/21 21:00 05/16/21 20:19 Lisinopril (Prinivil) 40 mg DAILY PO 05/14/21 09:00 05/16/21 08:13 Cyanocobalamin (Vitamin B-12) 1,000 mcg 1200 PO 05/14/21 12:00 05/16/21 13:06 Gabapentin (Neurontin) 400 mg TID PO 05/13/21 21:00 05/16/21 20:19 Multivitamins/ Calcium (Thera-M Plus) 1 tab DAILY PO 05/14/21 09:00 05/16/21 08:13 Dexamethasone (Maxidex) 1 drop BID OU 05/13/21 21:00 05/16/21 08:15 Multi-Ingredient Ointment (Analgesic [place]) 1 mechelle PRN QID PRN TP MUSCLE PAIN 05/13/21 16:45 Al Hydroxide/Mg Hydroxide (Mylanta Plus Xs) 15 ml PRN AFTMEALHC PRN PO DYSPEPSIA 05/13/21 16:45 Magnesium Hydroxide (Milk Of Magnesia) 2,400 mg PRN QHS PRN PO CONSTIPATION 05/13/21 16:45 Trazodone HCl (Desyrel) 50 mg PRN QHS PRN PO insomnia 05/13/21 16:45 05/16/21 20:20 Nystatin (Nystop) 1 mechelle PRN BID PRN TP TO BILATERAL GROINS 05/13/21 16:45 Sertraline HCl (Zoloft) 25 mg DAILY PO 05/14/21 09:00 05/14/21 21:00 DC 05/14/21 08:53 Sertraline HCl (Zoloft) 50 mg DAILY PO 05/15/21 09:00 05/16/21 08:13 Warfarin Sodium (Coumadin Per Pharmacy) 1 each PRN DAILY PRN MC SEE COMMENTS 05/13/21 17:00 05/14/21 14:38 Warfarin Sodium (Coumadin) 7.5 mg 1X ONCE PO 05/13/21 17:00 05/13/21 17:01 DC 05/13/21 17:14 Warfarin Sodium (Coumadin) 7.5 mg 1X WARF ONCE PO 05/14/21 16:00 05/14/21 16:01 DC 05/14/21 15:54 Warfarin Sodium (Coumadin) 7.5 mg 1X WARF ONCE PO 05/15/21 16:00 05/15/21 16:02 DC 05/15/21 16:00 Pantoprazole Sodium (Protonix) 40 mg DAILYAC PO 05/16/21 07:30 05/16/21 08:13 Warfarin Sodium (Coumadin) 5 mg 1X WARF ONCE PO 05/16/21 16:00 05/16/21 16:01 DC 05/16/21 16:19 Neomycin/ Polymyxin/ Bacitracin (Triple Antibiotic Ointment) 1 pkt BID TP 05/16/21 21:00 05/16/21 20:20 Current Medications Medications (Trade) Dose Ordered Sig/Mary Route PRN Reason Start Time Stop Time Status Last Admin Dose Admin Pantoprazole Sodium (Protonix) 40 mg DAILYAC PO 05/16/21 07:30 05/16/21 08:13 Warfarin Sodium (Coumadin) 5 mg 1X WARF ONCE PO 05/16/21 16:00 05/16/21 16:01 DC 05/16/21 16:19 Neomycin/ Polymyxin/ Bacitracin (Triple Antibiotic Ointment) 1 pkt BID TP 05/16/21 21:00 05/16/21 20:20 I have reviewed the current psychotropics carefully including drug interactions. Risk benefit ratio favors no change other than as noted in my dictated progress note. Diagnosis: Problems: (1) Impulse control disorder, unspecified (2) Anxiety disorder, unspecified (3) Dementia, vascular, with depression (4) Dementia, vascular, with delusions (5) Dementia in Alzheimer's disease with depression (6) Dementia in Alzheimer's disease with delusions (7) Dementia of the Alzheimer's type with early onset with behavioral disturbance (8) Major neurocognitive disorder JAE HERNANDEZ MD May 16, 2021 21:23
[2021-05-17] MEDS: IV DEXTROSE 5% 1,000 ML IV SCH ×3 (02:45→22:45)
[2021-05-17] MEDS: LEVOTHYROXINE 75 MCG TABLET PO SCH (05:42)
--- NOTE | 2021-05-17 06:19 | NUR ---
Pt had a good appetite this shift. He has eaten 2 tubs of yogurt and 1 of applesauce. He has drank honey thick cranberry juice, water, apple juice and Ensure. IV placed for hydration, dextrose 5% administered as ordered while pt slept; disconnected when pt awoke hoping to preserve IV. Pt did pull out IV later. No excessive bleeding or trauma noted. Pt successfully received 800mL IV fluids. Bladder scanned for retention. Measured <50mL. Pt hollers out, shakes the rails and fidgets when awake and no one is in the room with him. tm
[2021-05-17 06:23] VITALS: BP 139/67
[2021-05-17] MEDS: DEXAMETHASONE 0.1% OPHTH SOLUTION 5ML BOTTLE. OU SCH ×2 (09:00→20:21)
[2021-05-17] MEDS: LISINOPRIL 20 MG TABLET PO SCH (09:19)
[2021-05-17] MEDS: SPIRONOLACTONE 25 MG TABLET PO SCH (09:19)
[2021-05-17] MEDS: ALLOPURINOL 100 MG TABLET. PO SCH ×2 (09:20→20:21)
[2021-05-17] MEDS: LACTOBACILLUS RHAMNOSUS GG 1 CAPSULE. PO SCH ×2 (09:20→20:21)
[2021-05-17] MEDS: PANTOPRAZOLE 40 MG TABLET. PO SCH (09:20)
[2021-05-17] MEDS: MULTIVITAMIN with MINERAL TABLET. PO SCH (09:20)
[2021-05-17] MEDS: QUEtiapine 25 MG TABLET. PO SCH ×2 (09:20→20:21)
[2021-05-17] MEDS: GABAPENTIN 400 MG CAPSULE. PO SCH ×3 (09:20→20:20)
[2021-05-17] MEDS: ASPIRIN CHEWABLE 81 MG TABLET. PO SCH (09:20)
[2021-05-17] MEDS: CEPHALEXIN 250 MG CAPSULE PO SCH ×3 (09:20→20:21)
[2021-05-17] MEDS: SERTRALINE 50 MG TABLET. PO SCH (09:20)
[2021-05-17] MEDS: MIRABEGRON 25 MG TAB.ER.24H PO SCH (09:20)
[2021-05-17] MEDS: FINASTERIDE 5 MG TABLET. PO SCH (09:20)
[2021-05-17] MEDS: NEOMY/BACITR/POLYMYXIN OINT PACKET. TP SCH ×2 (09:20→21:00)
[2021-05-17] MEDS: AZITHROMYCIN 250 MG TABLET. PO SCH (09:20)
[2021-05-17] MEDS: DEXAMETHASONE 4 MG TABLET PO SCH (09:32)
[2021-05-17 11:23] VITALS: BP 103/75
[2021-05-17 11:35] LABS: CALCIUM 7.4 mg/dL (8.5-10.1); CREATININE 1.4 mg/dL (0.7-1.3); GFR 48.3; POTASSIUM 3.7 mmol/L (3.5-5.1)
[2021-05-17] MEDS: CYANOCOBALAMIN (VITAMIN B-12) 1,000 MCG TABLET. PO SCH (12:07)
[2021-05-17 15:00] VITALS: BP 123/68
--- NOTE | 2021-05-17 15:04 | NUR ---
Nursing note: Patient continues to be in isolation for COVID. He is A/O to self only. He has voiced several times of wanting to go home as well as looking for his . He is incontenent of stool 2X, pulling at his brief, breif and bedding changed. Patient is forgetful & restless on and off through the day. He has a productive cough at times, he spits any sputum on the floor. He is currently resting with eyes closed, call light in reach. Will continue to monitor. Addendum: 05/17/21 at 1814 by ELTON FALCON RN RN Patient SaO2 is 85 RA, 2L oxygen applied, he will not keep it on. He also takes off his gown and blankets frequently then calls out for help becuase he is cold.
[2021-05-17 19:10] VITALS: BP 113/65
[2021-05-17] MEDS: traZODone 50 MG TABLET. PO PRN (20:20)
[2021-05-17] MEDS: ATORVASTATIN CALCIUM 20 MG TABLET PO SCH (20:21)
--- NOTE | 2021-05-17 21:00 | NUR ---
At start of shift, pt opened his door and started walking out, hanging onto the duong. Pt encouraged to return to his room. Pt sat back into wheelchair and personal alarm reattached. Pt wheels around the room trying to exit his room. Pt found in the bathroom after pulling the toilet alarm, sitting in his wheelchair blocking room door. Pt wheeled back in front of television. [facility]
--- NOTE | 2021-05-17 21:15 | NUR ---
Toileted pt to BSC, no output. Drink and snack provided; zydis given with snack in hopes of decreasing restlessness and agitation. wctm
--- NOTE | 2021-05-17 21:32 | PDOC ---
Exam Note: Brennen Note: Please also refer to the separate dictated note~for this date of service dictated separately.~Patient seen individually. Discussed the patient with Nursing staff reviewed the chart.~Reviewed interim history and current functioning. Reviewed vital signs,~Labs/ Radiology~and current medications noted below. Continue current treatment with the changes noted in the dictated addendum note Assessment: Vital Signs/I&O: Vital Signs Date Time Temp Pulse Resp B/P (MAP) Pulse Ox O2 Delivery O2 Flow Rate FiO2 05/17/21 19:10 97.0 68 20 113/65 (81) Room Air 93.0 05/17/21 15:00 85 I & O 05/16/21 05/16/21 05/17/21 15:00 23:00 07:00 Intake Total 730 ml 480 ml 800 ml Balance 730 ml 480 ml 800 ml Labs: Laboratory Tests Test 05/17/21 11:15 05/17/21 14:40 Sodium Level 143 mmol/L (136-145) Potassium Level 3.7 mmol/L (3.5-5.1) Chloride Level 111 mmol/L (98-107) H Carbon Dioxide Level 18 mmol/L (21-32) L Anion Gap 14 (6-14) Blood Urea Nitrogen 49 mg/dL (8-26) H Creatinine 1.4 mg/dL (0.7-1.3) H Estimated GFR (Cockcroft-Gault) 48.3 Glucose Level 148 mg/dL (70-99) H Calcium Level 7.4 mg/dL (8.5-10.1) L Prothrombin Time 34.7 SEC (9.4-11.4) H Prothrombin Time INR 3.4 (0.9-1.1) H Current Medications: Meds: Laboratory Tests Test 05/17/21 11:15 05/17/21 14:40 Sodium Level 143 mmol/L Potassium Level 3.7 mmol/L Chloride Level 111 mmol/L Carbon Dioxide Level 18 mmol/L Anion Gap 14 Blood Urea Nitrogen 49 mg/dL Creatinine 1.4 mg/dL Estimated GFR (Cockcroft-Gault) 48.3 Glucose Level 148 mg/dL Calcium Level 7.4 mg/dL Prothrombin Time 34.7 SEC Prothromb Time International Ratio 3.4 Current Medications Medications (Trade) Dose Ordered Sig/Mary Route PRN Reason Start Time Stop Time Status Last Admin Dose Admin Dextrose 1,000 ml @ 100 mls/hr Q10H IV 05/12/21 17:00 05/12/21 18:04 DC Ceftriaxone Sodium 1 gm/ Sodium Chloride 50 ml @ 100 mls/hr Q24H IV 05/12/21 20:00 05/12/21 18:04 DC Dexamethasone Sodium Phosphate (Decadron) 12 mg DAILY IV 05/13/21 09:00 05/12/21 18:04 DC Enoxaparin Sodium (Lovenox 30mg Syringe) 30 mg Q24H SQ 05/12/21 17:00 05/12/21 18:25 DC Cephalexin HCl (Keflex) 500 mg TID PO 05/12/21 21:00 05/17/21 20:21 Azithromycin (Zithromax) 500 mg DAILY PO 05/13/21 09:00 05/17/21 09:20 Dexamethasone (Decadron) 12 mg DAILYWBKFT PO 05/13/21 08:00 05/17/21 09:32 Olanzapine (ZyPREXA ZYDIS) 2.5 mg PRN Q2HRS PRN PO PSYCHOSIS 05/12/21 18:15 05/17/21 20:20 Quetiapine Fumarate (SEROquel) 25 mg BID PO 05/12/21 21:00 05/17/21 20:21 Dextrose 1,000 ml @ 100 mls/hr Q10H IV 05/12/21 22:45 05/16/21 21:19 Acetaminophen (Tylenol) 650 mg PRN Q6HRS PRN PO MILD PAIN / TEMP > 100.3'F 05/12/21 22:45 05/16/21 20:19 Lactobacillus Rhamnosus (Culturelle) 1 cap BID PO 05/13/21 21:00 05/17/21 20:21 Allopurinol (Zyloprim) 100 mg BID PO 05/13/21 21:00 05/17/21 20:21 Aspirin (Aspirin Chewable) 81 mg DAILY PO 05/14/21 09:00 05/17/21 09:20 Finasteride (Proscar) 5 mg DAILY PO 05/14/21 09:00 05/17/21 09:20 Levothyroxine Sodium (Synthroid) 75 mcg DAILY06 PO 05/14/21 06:00 05/17/21 05:42 Mirabegron (Myrbetriq) 25 mg DAILY PO 05/14/21 09:00 05/17/21 09:20 Pantoprazole Sodium (Protonix) 40 mg DAILY PO 05/14/21 09:00 05/15/21 08:39 DC 05/14/21 08:50 Spironolactone (Aldactone) 25 mg Q48H PO 05/14/21 09:00 05/17/21 09:19 Atorvastatin Calcium (Lipitor) 80 mg QHS PO 05/13/21 21:00 05/17/21 20:21 Lisinopril (Prinivil) 40 mg DAILY PO 05/14/21 09:00 05/17/21 09:19 Cyanocobalamin (Vitamin B-12) 1,000 mcg 1200 PO 05/14/21 12:00 05/17/21 12:07 Gabapentin (Neurontin) 400 mg TID PO 05/13/21 21:00 05/17/21 20:20 Multivitamins/ Calcium (Thera-M Plus) 1 tab DAILY PO 05/14/21 09:00 05/17/21 09:20 Dexamethasone (Maxidex) 1 drop BID OU 05/13/21 21:00 05/17/21 20:21 Multi-Ingredient Ointment (Analgesic [place]) 1 mechelle PRN QID PRN TP MUSCLE PAIN 05/13/21 16:45 Al Hydroxide/Mg Hydroxide (Mylanta Plus Xs) 15 ml PRN AFTMEALHC PRN PO DYSPEPSIA 05/13/21 16:45 Magnesium Hydroxide (Milk Of Magnesia) 2,400 mg PRN QHS PRN PO CONSTIPATION 05/13/21 16:45 Trazodone HCl (Desyrel) 50 mg PRN QHS PRN PO insomnia 05/13/21 16:45 05/17/21 20:20 Nystatin (Nystop) 1 mechelle PRN BID PRN TP TO BILATERAL GROINS 05/13/21 16:45 Sertraline HCl (Zoloft) 25 mg DAILY PO 05/14/21 09:00 05/14/21 21:00 DC 05/14/21 08:53 Sertraline HCl (Zoloft) 50 mg DAILY PO 05/15/21 09:00 05/17/21 09:20 Warfarin Sodium (Coumadin Per Pharmacy) 1 each PRN DAILY PRN MC SEE COMMENTS 05/13/21 17:00 05/14/21 14:38 Warfarin Sodium (Coumadin) 7.5 mg 1X ONCE PO 05/13/21 17:00 05/13/21 17:01 DC 05/13/21 17:14 Warfarin Sodium (Coumadin) 7.5 mg 1X WARF ONCE PO 05/14/21 16:00 05/14/21 16:01 DC 05/14/21 15:54 Warfarin Sodium (Coumadin) 7.5 mg 1X WARF ONCE PO 05/15/21 16:00 05/15/21 16:02 DC 05/15/21 16:00 Pantoprazole Sodium (Protonix) 40 mg DAILYAC PO 05/16/21 07:30 05/17/21 09:20 Warfarin Sodium (Coumadin) 5 mg 1X WARF ONCE PO 05/16/21 16:00 05/16/21 16:01 DC 05/16/21 16:19 Neomycin/ Polymyxin/ Bacitracin (Triple Antibiotic Ointment) 1 pkt BID TP 05/16/21 21:00 05/17/21 21:00 Warfarin Sodium (Coumadin - No Dose Today) 1 each 1X WARF ONCE MC 05/17/21 16:00 05/17/21 16:01 DC I have reviewed the current psychotropics carefully including drug interactions. Risk benefit ratio favors no change other than as noted in my dictated progress note. 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
--- NOTE | 2021-05-17 21:32 | PN ---
DATE: 05/17/2021 SUBJECTIVE: The patient is resting, slightly propped up in bed, in no apparent respiratory distress. He is obviously confused and agitated. He pulled about 6 IV lines. He was somewhat hypoxic according to nursing staff this morning. PHYSICAL EXAMINATION: GENERAL: When I examined him, he was pale, but no jaundiced, cyanosed, no lymphadenopathy, no thyromegaly, no jugular venous distention. No lower limb edema. VITAL SIGNS: His heart rate was 98, blood pressure is 103/75, temperature 97.9, respiratory rate was 18, and oxygen saturation was 94% on room air. HEAD, EYES, EARS, NOSE, AND THROAT: Normocephalic, atraumatic. NECK: Supple. HEART: Showed normal first and second heart sounds. No gallop or murmur. CHEST: Clear to auscultation. I could not appreciate any crepitation or rhonchi. ABDOMEN: Distended, soft, and nontender. NEUROLOGIC: He was demented, but all his cranial nerves are intact. He moves upper extremities without difficulty. He is mostly bedbound, wheelchair bound. His intake over the last 24 hours was 1900. No output was recorded. LABORATORY DATA: This morning showed his chemistry showed a serum sodium 143, potassium 3.7, chloride 111, bicarbonate 18, anion gap of 14, BUN 49, creatinine 1.4. Estimated GFR was 48 mL per minute. His glucose 148 and calcium 7.4. ASSESSMENT: 1. Asymptomatic COVID-19 infection. 2. The patient has multiple other medical problems including: A. Hypernatremia that has finally resolved. Serum sodium this morning was 143 milliequivalent per liter. B. Acute on chronic kidney injury, slowly improving. His creatinine is down to 1.4. C. gastroesophageal reflux disease. D. Hypertension. E. Hyperlipidemia. F. Benign prostatic hypertrophy. PLAN: To continue with all his psychotropic medications. Continue with IV antibiotic in the form of Zithromax and ceftriaxone. Continue with dexamethasone. I will hold Coumadin. His PT/INR is supratherapeutic at 34.7 and 3.4. I will repeat all his lab works and a chest x-ray tomorrow. MAXIMILIANO/IRMA DR: Jomar TID: [id number]
--- NOTE | 2021-05-18 01:12 | NUR ---
Pt up to BSC multiple times this shift. He c/o abdominal "swelling" bilateral lower quadrants. Pt has flatulence but has not excreted bowel movement this shift yet. Pt c/o feeling dizzy each time on BSC. BP measured this time at 96/57, heart rate 88. Pt helped back to bed x3 assist, bed alarm used. tm
[2021-05-18 01:13] VITALS: BP 99/59
[2021-05-18 07:00] VITALS: BP 147/81
[2021-05-18] MEDS: PANTOPRAZOLE 40 MG TABLET. PO SCH (07:30)
--- NOTE | 2021-05-18 07:33 | PDOC ---
Exam Note: Brennen Note: This note is a late entry for 05/16/2021 covers elements not covered in my initial note. Subjective: The patient was reviewed on 05/16/2021 by the nursing staff, discussed and reviewed the chart and interim history. The patients sodium remains elevated. He remains confused. He remains on oral fluids. Nursing staff might try and slip an IV at night if he will keep it on. He remains anxious, restless, sometimes undressing, little resistive to cares. Review of Systems: Per nursing report no CV, , pulmonary, eye, ENT system symptoms on review. Mental Status Exam: The patient is oriented to himself. Insight and judgment, recent and remote memory, attention and concentration, fund of knowledge is poor consistent with his diagnoses. Laboratory Data: Reviewed. Impression: Major neurocognitive disorder, Alzheimer, vascular with delusion, depression, behavioral disturbance. Anxiety disorder unspecified. Impulse control disorder unspecified. Plan: No change from initial note. Adjust as clinically indicated. I would like to minimize any antipsychotics till he is medically stabilized. Assessment: Vital Signs/I&O: Vital Signs Date Time Temp Pulse Resp B/P (MAP) Pulse Ox O2 Delivery O2 Flow Rate FiO2 05/18/21 01:13 88 20 99/59 (72) 96 Room Air 05/17/21 19:10 97.0 93.0 I & O 05/17/21 05/17/21 05/18/21 14:59 22:59 06:59 Intake Total 600 ml 480 ml 240 ml Balance 600 ml 480 ml 240 ml Labs: Laboratory Tests Test 05/17/21 11:15 05/17/21 14:40 Sodium Level 143 mmol/L (136-145) Potassium Level 3.7 mmol/L (3.5-5.1) Chloride Level 111 mmol/L (98-107) H Carbon Dioxide Level 18 mmol/L (21-32) L Anion Gap 14 (6-14) Blood Urea Nitrogen 49 mg/dL (8-26) H Creatinine 1.4 mg/dL (0.7-1.3) H Estimated GFR (Cockcroft-Gault) 48.3 Glucose Level 148 mg/dL (70-99) H Calcium Level 7.4 mg/dL (8.5-10.1) L Prothrombin Time 34.7 SEC (9.4-11.4) H Prothrombin Time INR 3.4 (0.9-1.1) H Current Medications: Meds: Laboratory Tests Test 05/17/21 11:15 05/17/21 14:40 Sodium Level 143 mmol/L Potassium Level 3.7 mmol/L Chloride Level 111 mmol/L Carbon Dioxide Level 18 mmol/L Anion Gap 14 Blood Urea Nitrogen 49 mg/dL Creatinine 1.4 mg/dL Estimated GFR (Cockcroft-Gault) 48.3 Glucose Level 148 mg/dL Calcium Level 7.4 mg/dL Prothrombin Time 34.7 SEC Prothromb Time International Ratio 3.4 Current Medications Medications (Trade) Dose Ordered Sig/Mary Route PRN Reason Start Time Stop Time Status Last Admin Dose Admin Dextrose 1,000 ml @ 100 mls/hr Q10H IV 05/12/21 17:00 05/12/21 18:04 DC Ceftriaxone Sodium 1 gm/ Sodium Chloride 50 ml @ 100 mls/hr Q24H IV 05/12/21 20:00 05/12/21 18:04 DC Dexamethasone Sodium Phosphate (Decadron) 12 mg DAILY IV 05/13/21 09:00 05/12/21 18:04 DC Enoxaparin Sodium (Lovenox 30mg Syringe) 30 mg Q24H SQ 05/12/21 17:00 05/12/21 18:25 DC Cephalexin HCl (Keflex) 500 mg TID PO 05/12/21 21:00 05/17/21 20:21 Azithromycin (Zithromax) 500 mg DAILY PO 05/13/21 09:00 05/17/21 09:20 Dexamethasone (Decadron) 12 mg DAILYWBKFT PO 05/13/21 08:00 05/17/21 09:32 Olanzapine (ZyPREXA ZYDIS) 2.5 mg PRN Q2HRS PRN PO PSYCHOSIS 05/12/21 18:15 05/17/21 20:20 Quetiapine Fumarate (SEROquel) 25 mg BID PO 05/12/21 21:00 05/17/21 20:21 Dextrose 1,000 ml @ 100 mls/hr Q10H IV 05/12/21 22:45 05/16/21 21:19 Acetaminophen (Tylenol) 650 mg PRN Q6HRS PRN PO MILD PAIN / TEMP > 100.3'F 05/12/21 22:45 05/16/21 20:19 Lactobacillus Rhamnosus (Culturelle) 1 cap BID PO 05/13/21 21:00 05/17/21 20:21 Allopurinol (Zyloprim) 100 mg BID PO 05/13/21 21:00 05/17/21 20:21 Aspirin (Aspirin Chewable) 81 mg DAILY PO 05/14/21 09:00 05/17/21 09:20 Finasteride (Proscar) 5 mg DAILY PO 05/14/21 09:00 05/17/21 09:20 Levothyroxine Sodium (Synthroid) 75 mcg DAILY06 PO 05/14/21 06:00 05/17/21 05:42 Mirabegron (Myrbetriq) 25 mg DAILY PO 05/14/21 09:00 05/17/21 09:20 Pantoprazole Sodium (Protonix) 40 mg DAILY PO 05/14/21 09:00 05/15/21 08:39 DC 05/14/21 08:50 Spironolactone (Aldactone) 25 mg Q48H PO 05/14/21 09:00 05/17/21 09:19 Atorvastatin Calcium (Lipitor) 80 mg QHS PO 05/13/21 21:00 05/17/21 20:21 Lisinopril (Prinivil) 40 mg DAILY PO 05/14/21 09:00 05/17/21 09:19 Cyanocobalamin (Vitamin B-12) 1,000 mcg 1200 PO 05/14/21 12:00 05/17/21 12:07 Gabapentin (Neurontin) 400 mg TID PO 05/13/21 21:00 05/17/21 20:20 Multivitamins/ Calcium (Thera-M Plus) 1 tab DAILY PO 05/14/21 09:00 05/17/21 09:20 Dexamethasone (Maxidex) 1 drop BID OU 05/13/21 21:00 05/17/21 20:21 Multi-Ingredient Ointment (Analgesic [place]) 1 mechelle PRN QID PRN TP MUSCLE PAIN 05/13/21 16:45 Al Hydroxide/Mg Hydroxide (Mylanta Plus Xs) 15 ml PRN AFTMEALHC PRN PO DYSPEPSIA 05/13/21 16:45 Magnesium Hydroxide (Milk Of Magnesia) 2,400 mg PRN QHS PRN PO CONSTIPATION 05/13/21 16:45 Trazodone HCl (Desyrel) 50 mg PRN QHS PRN PO insomnia 05/13/21 16:45 05/17/21 20:20 Nystatin (Nystop) 1 mechelle PRN BID PRN TP TO BILATERAL GROINS 05/13/21 16:45 Sertraline HCl (Zoloft) 25 mg DAILY PO 05/14/21 09:00 05/14/21 21:00 DC 05/14/21 08:53 Sertraline HCl (Zoloft) 50 mg DAILY PO 05/15/21 09:00 05/17/21 09:20 Warfarin Sodium (Coumadin Per Pharmacy) 1 each PRN DAILY PRN MC SEE COMMENTS 05/13/21 17:00 05/14/21 14:38 Warfarin Sodium (Coumadin) 7.5 mg 1X ONCE PO 05/13/21 17:00 05/13/21 17:01 DC 05/13/21 17:14 Warfarin Sodium (Coumadin) 7.5 mg 1X WARF ONCE PO 05/14/21 16:00 05/14/21 16:01 DC 05/14/21 15:54 Warfarin Sodium (Coumadin) 7.5 mg 1X WARF ONCE PO 05/15/21 16:00 05/15/21 16:02 DC 05/15/21 16:00 Pantoprazole Sodium (Protonix) 40 mg DAILYAC PO 05/16/21 07:30 05/17/21 09:20 Warfarin Sodium (Coumadin) 5 mg 1X WARF ONCE PO 05/16/21 16:00 05/16/21 16:01 DC 05/16/21 16:19 Neomycin/ Polymyxin/ Bacitracin (Triple Antibiotic Ointment) 1 pkt BID TP 05/16/21 21:00 05/17/21 21:00 Warfarin Sodium (Coumadin - No Dose Today) 1 each 1X WARF ONCE MC 05/17/21 16:00 05/17/21 16:01 DC I have reviewed the current psychotropics carefully including drug interactions. Risk benefit ratio favors no change other than as noted in my dictated progress note. Diagnosis: Problems: (1) Impulse control disorder, unspecified (2) Anxiety disorder, unspecified (3) Dementia, vascular, with depression (4) Dementia, vascular, with delusions (5) Dementia in Alzheimer's disease with depression (6) Dementia in Alzheimer's disease with delusions (7) Dementia of the Alzheimer's type with early onset with behavioral distur bance (8) Major neurocognitive disorder (9) COVID-19 JAE HERNANDEZ MD May 18, 2021 07:33
--- NOTE | 2021-05-18 07:51 | PDOC ---
Exam Note: Brennen Note: This note is a late entry for 05/17/2021 covers elements not covered in my initial note. Subjective: The patient was reviewed on 05/17/2021 by Colleen BEE, discussed and reviewed the chart and interim history. The patient remains confused. He has been hollering, undressing himself, yelling at the nursing staff to get him dressed after he has undressed himself. Chest x-ray has been repeated. Oxygen is low. He has been coughing and spitting on the floor, attempted to transfer himself x1 and is a fall risk. He had defecated on himself and then soiled himself on his hands. Review of Systems: Per nursing report no CV, , pulmonary, eye, ENT system symptoms on review. Mental Status Exam: The patient is oriented to himself. Insight and judgment, recent and remote memory, attention and concentration, fund of knowledge is poor consistent with his diagnoses. Laboratory Data: Reviewed. Impression: Major neurocognitive disorder, Alzheimer, vascular with delusion, depression, behavioral disturbance. Anxiety disorder unspecified. Impulse control disorder unspecified. Plan: No change from initial note. Again I am trying to avoid any atypical antipsychotics or increase till he is medically stabilized but we will have to see depending on how his behaviors do. Assessment: Vital Signs/I&O: Vital Signs Date Time Temp Pulse Resp B/P (MAP) Pulse Ox O2 Delivery O2 Flow Rate FiO2 05/18/21 01:13 88 20 99/59 (72) 96 Room Air 05/17/21 19:10 97.0 93.0 I & O 05/17/21 05/17/21 05/18/21 15:00 23:00 07:00 Intake Total 600 ml 480 ml 240 ml Balance 600 ml 480 ml 240 ml Labs: Laboratory Tests Test 05/17/21 11:15 05/17/21 14:40 Sodium Level 143 mmol/L (136-145) Potassium Level 3.7 mmol/L (3.5-5.1) Chloride Level 111 mmol/L (98-107) H Carbon Dioxide Level 18 mmol/L (21-32) L Anion Gap 14 (6-14) Blood Urea Nitrogen 49 mg/dL (8-26) H Creatinine 1.4 mg/dL (0.7-1.3) H Estimated GFR (Cockcroft-Gault) 48.3 Glucose Level 148 mg/dL (70-99) H Calcium Level 7.4 mg/dL (8.5-10.1) L Prothrombin Time 34.7 SEC (9.4-11.4) H Prothrombin Time INR 3.4 (0.9-1.1) H Current Medications: Meds: Laboratory Tests Test 05/17/21 11:15 05/17/21 14:40 Sodium Level 143 mmol/L Potassium Level 3.7 mmol/L Chloride Level 111 mmol/L Carbon Dioxide Level 18 mmol/L Anion Gap 14 Blood Urea Nitrogen 49 mg/dL Creatinine 1.4 mg/dL Estimated GFR (Cockcroft-Gault) 48.3 Glucose Level 148 mg/dL Calcium Level 7.4 mg/dL Prothrombin Time 34.7 SEC Prothromb Time International Ratio 3.4 Current Medications Medications (Trade) Dose Ordered Sig/Mary Route PRN Reason Start Time Stop Time Status Last Admin Dose Admin Dextrose 1,000 ml @ 100 mls/hr Q10H IV 05/12/21 17:00 05/12/21 18:04 DC Ceftriaxone Sodium 1 gm/ Sodium Chloride 50 ml @ 100 mls/hr Q24H IV 05/12/21 20:00 05/12/21 18:04 DC Dexamethasone Sodium Phosphate (Decadron) 12 mg DAILY IV 05/13/21 09:00 05/12/21 18:04 DC Enoxaparin Sodium (Lovenox 30mg Syringe) 30 mg Q24H SQ 05/12/21 17:00 05/12/21 18:25 DC Cephalexin HCl (Keflex) 500 mg TID PO 05/12/21 21:00 05/17/21 20:21 Azithromycin (Zithromax) 500 mg DAILY PO 05/13/21 09:00 05/17/21 09:20 Dexamethasone (Decadron) 12 mg DAILYWBKFT PO 05/13/21 08:00 05/17/21 09:32 Olanzapine (ZyPREXA ZYDIS) 2.5 mg PRN Q2HRS PRN PO PSYCHOSIS 05/12/21 18:15 05/17/21 20:20 Quetiapine Fumarate (SEROquel) 25 mg BID PO 05/12/21 21:00 05/17/21 20:21 Dextrose 1,000 ml @ 100 mls/hr Q10H IV 05/12/21 22:45 05/16/21 21:19 Acetaminophen (Tylenol) 650 mg PRN Q6HRS PRN PO MILD PAIN / TEMP > 100.3'F 05/12/21 22:45 05/16/21 20:19 Lactobacillus Rhamnosus (Culturelle) 1 cap BID PO 05/13/21 21:00 05/17/21 20:21 Allopurinol (Zyloprim) 100 mg BID PO 05/13/21 21:00 05/17/21 20:21 Aspirin (Aspirin Chewable) 81 mg DAILY PO 05/14/21 09:00 05/17/21 09:20 Finasteride (Proscar) 5 mg DAILY PO 05/14/21 09:00 05/17/21 09:20 Levothyroxine Sodium (Synthroid) 75 mcg DAILY06 PO 05/14/21 06:00 05/17/21 05:42 Mirabegron (Myrbetriq) 25 mg DAILY PO 05/14/21 09:00 05/17/21 09:20 Pantoprazole Sodium (Protonix) 40 mg DAILY PO 05/14/21 09:00 05/15/21 08:39 DC 05/14/21 08:50 Spironolactone (Aldactone) 25 mg Q48H PO 05/14/21 09:00 05/17/21 09:19 Atorvastatin Calcium (Lipitor) 80 mg QHS PO 05/13/21 21:00 05/17/21 20:21 Lisinopril (Prinivil) 40 mg DAILY PO 05/14/21 09:00 05/17/21 09:19 Cyanocobalamin (Vitamin B-12) 1,000 mcg 1200 PO 05/14/21 12:00 05/17/21 12:07 Gabapentin (Neurontin) 400 mg TID PO 05/13/21 21:00 05/17/21 20:20 Multivitamins/ Calcium (Thera-M Plus) 1 tab DAILY PO 05/14/21 09:00 05/17/21 09:20 Dexamethasone (Maxidex) 1 drop BID OU 05/13/21 21:00 05/17/21 20:21 Multi-Ingredient Ointment (Analgesic [place]) 1 mechelle PRN QID PRN TP MUSCLE PAIN 05/13/21 16:45 Al Hydroxide/Mg Hydroxide (Mylanta Plus Xs) 15 ml PRN AFTMEALHC PRN PO DYSPEPSIA 05/13/21 16:45 Magnesium Hydroxide (Milk Of Magnesia) 2,400 mg PRN QHS PRN PO CONSTIPATION 05/13/21 16:45 Trazodone HCl (Desyrel) 50 mg PRN QHS PRN PO insomnia 05/13/21 16:45 05/17/21 20:20 Nystatin (Nystop) 1 mechelle PRN BID PRN TP TO BILATERAL GROINS 05/13/21 16:45 Sertraline HCl (Zoloft) 25 mg DAILY PO 05/14/21 09:00 05/14/21 21:00 DC 05/14/21 08:53 Sertraline HCl (Zoloft) 50 mg DAILY PO 05/15/21 09:00 05/17/21 09:20 Warfarin Sodium (Coumadin Per Pharmacy) 1 each PRN DAILY PRN MC SEE COMMENTS 05/13/21 17:00 05/14/21 14:38 Warfarin Sodium (Coumadin) 7.5 mg 1X ONCE PO 05/13/21 17:00 05/13/21 17:01 DC 05/13/21 17:14 Warfarin Sodium (Coumadin) 7.5 mg 1X WARF ONCE PO 05/14/21 16:00 05/14/21 16:01 DC 05/14/21 15:54 Warfarin Sodium (Coumadin) 7.5 mg 1X WARF ONCE PO 05/15/21 16:00 05/15/21 16:02 DC 05/15/21 16:00 Pantoprazole Sodium (Protonix) 40 mg DAILYAC PO 05/16/21 07:30 05/17/21 09:20 Warfarin Sodium (Coumadin) 5 mg 1X WARF ONCE PO 05/16/21 16:00 05/16/21 16:01 DC 05/16/21 16:19 Neomycin/ Polymyxin/ Bacitracin (Triple Antibiotic Ointment) 1 pkt BID TP 05/16/21 21:00 05/17/21 21:00 Warfarin Sodium (Coumadin - No Dose Today) 1 each 1X WARF ONCE MC 05/17/21 16:00 05/17/21 16:01 DC I have reviewed the current psychotropics carefully including drug interactions. Risk benefit ratio favors no change other than as noted in my dictated progress note. Diagnosis: Problems: (1) Impulse control disorder, unspecified (2) Anxiety disorder, unspecified (3) Dementia, vascular, with depression (4) Dementia, vascular, with delusions (5) Dementia in Alzheimer's disease with depression (6) Dementia in Alzheimer's disease with delusions (7) Dementia of the Alzheimer's type with early onset with behavioral disturbance (8) Major neurocognitive disorder (9) COVID-19 JAE HERNANDEZ MD May 18, 2021 07:51
--- NOTE | 2021-05-18 08:10 | RAD ---
XR CHEST 1V INDICATION: worsening hypoxia COMPARISON STUDY: 05/12/2021. FINDINGS: Lungs: Normal lung volume. Increasing bilateral interstitial opacities. Pleura: No pleural effusion or pneumothorax. Heart and Mediastinum: Stable cardiomediastinal silhouette and great vessels. IMPRESSION: Increasing bilateral interstitial opacities. Electronically signed by: Carlos Hernandez MD (05/18/2021 8:07 AM) [id number]
[2021-05-18 08:35] LABS: BASO # 0.1 x10^3/uL (0.0-0.2); BASO % 0 % (0-3); EOS % 0 % (0-3); HEMATOCRIT 41.5 % (39.0-53.0); HEMOGLOBIN 13.4 g/dL (13.0-17.5); LYMPH # 1.3 x10^3/uL (1.0-4.8); LYMPH % 7 % (24-48); MEAN CORPUSCULAR HEMOGLOBIN 30 pg (25-35); MEAN CORPUSCULAR HGB CONC 32 g/dL (31-37); MEAN CORPUSCULAR VOLUME 94 fL (79-100); MONO % 6 % (0-9); NEUT # 16.4 x10^3uL (1.8-7.7); NEUT % 88 % (31-73); PLATELET COUNT 175 x10^3/uL (140-400); RED BLOOD COUNT 4.43 x10^6/uL (4.30-5.70); RED CELL DISTRIBUTION WIDTH 16.7 % (11.5-14.5); WHITE BLOOD COUNT 18.8 x10^3/uL (4.0-11.0)
[2021-05-18] MEDS: IV DEXTROSE 5% 1,000 ML IV SCH ×2 (08:45→20:51)
[2021-05-18 08:48] LABS: ALBUMIN 2.7 g/dL (3.4-5.0); ALBUMIN/GLOBULIN RATIO 0.7 (1.0-1.7); CALCIUM 7.7 mg/dL (8.5-10.1); CREATININE 1.7 mg/dL (0.7-1.3); GFR 38.6; POTASSIUM 4.2 mmol/L (3.5-5.1); TOTAL BILIRUBIN 0.7 mg/dL (0.2-1.0); TOTAL PROTEIN 6.4 g/dL (6.4-8.2)
[2021-05-18] MEDS: ALLOPURINOL 100 MG TABLET. PO SCH ×2 (08:58→21:00)
[2021-05-18] MEDS: DEXAMETHASONE 4 MG TABLET PO SCH (08:58)
[2021-05-18] MEDS: MULTIVITAMIN with MINERAL TABLET. PO SCH (08:58)
[2021-05-18] MEDS: ASPIRIN CHEWABLE 81 MG TABLET. PO SCH (08:58)
[2021-05-18] MEDS: AZITHROMYCIN 250 MG TABLET. PO SCH (08:58)
[2021-05-18] MEDS: CEPHALEXIN 250 MG CAPSULE PO SCH ×2 (08:59→14:00)
[2021-05-18] MEDS: LACTOBACILLUS RHAMNOSUS GG 1 CAPSULE. PO SCH ×2 (08:59→21:00)
[2021-05-18] MEDS: FINASTERIDE 5 MG TABLET. PO SCH (08:59)
[2021-05-18] MEDS: GABAPENTIN 400 MG CAPSULE. PO SCH ×3 (08:59→21:00)
[2021-05-18] MEDS: SERTRALINE 50 MG TABLET. PO SCH (08:59)
[2021-05-18] MEDS: LEVOTHYROXINE 75 MCG TABLET PO SCH (08:59)
[2021-05-18] MEDS: QUEtiapine 25 MG TABLET. PO SCH ×2 (08:59→21:00)
[2021-05-18] MEDS: NEOMY/BACITR/POLYMYXIN OINT PACKET. TP SCH ×2 (09:00→20:51)
[2021-05-18] MEDS: LISINOPRIL 20 MG TABLET PO SCH (09:00)
[2021-05-18] MEDS: MIRABEGRON 25 MG TAB.ER.24H PO SCH (09:00)
[2021-05-18] MEDS: DEXAMETHASONE 0.1% OPHTH SOLUTION 5ML BOTTLE. OU SCH ×2 (09:00→20:51)
[2021-05-18] MEDS: CYANOCOBALAMIN (VITAMIN B-12) 1,000 MCG TABLET. PO SCH (12:00)
[2021-05-18 13:17] LABS: % BANDS 3 % (0-9); % LYMPHS 13 % (24-48); % MONOS 1 % (0-10); % SEGS 83 % (35-66); NUCLEATED RBC 2; PLT ESTIMATE ADEQUATE (ADEQUATE)
[2021-05-18] MEDS ORDERED: VANCOMYCIN PER PHARMACY MC PRN (15:15)
[2021-05-18] MEDS ORDERED: WARFARIN 2.5 MG TABLET. PO ONE (16:00)
[2021-05-18] MEDS ORDERED: VANCOMYCIN 2 GM in IV NORMAL SALINE 500ML 500 ML IV ONE (16:00)
[2021-05-18] MEDS: PIPERACILLIN/TAZOBACTAM 2.25 GM in IV NORMAL SALINE 50ML 50 ML IV SCH ×2 (16:00→20:51)
--- NOTE | 2021-05-18 16:14 | NUR ---
Pharmacy Vancomycin Dosing Note S:Consulted to monitor and dose vancomycin started . O:GIVENS,DEYVI Mccormick is a 85 year old M with Pneumonia, . Height: 5 feet, 9 inches Weight: 98.1 kg Flippin Body Weight: 70.70 Adjusted Body Weight: 81.66 Dosing Weight: Actual Other Antibiotics: ZOSYN 2.25GRAM Q8HRS LABS: Last BUN: 51 Last Creatinine: 1.7 Creatinine Clearance: Last WBC: 18.8 Last Procalcitonin: Tmax (past 24 hours): Microbiology: I/O: Drug Levels: Last level: on at Last dose given 05/18/21 at 1600 Vancomycin Dosing: Loading Dose: 2000 mg x1 Dosing Weight: Actual Target Trough: 15-20 A: Based on: P: 1. Begin Vancomycin 1500 mg IV q24h 2. Follow up Trough level on 05/20/21 at 1530 3. Pharmacy will continue to monitor, follow and adjust therapy as needed. ALICIA LYONS, [facility], 05/18/21 [id number]
--- NOTE | 2021-05-18 16:19 | NUR ---
Pharmacy Warfarin Dosing Note S:Pharmacy consulted to assist with anticoagulation therapy started with target INR: 2-2.5 O:ABDEYVI is a 85 year old M with Recurrent VTE LABS: Last INR: 2.5 Last HGB: 13.4 Last HCT: 41.5 Last PLT: 175 Last dose of Hold given on 05/17/21 at 1600 Previous Regimen: Vitamin K given: Drug Interaction Changes: Same Interacting Drug Ongoing Drug Interactions: A:INR Within desired Range. Target Range for this patient is: 2-2.5 P: Warfarin dose: 2.5 mg Today at 1600 Bridge Therapy: None Next INR due 05/19/21 @ 0600 Pharmacy anticoagulation service will continue to follow. ALICIA LYONS [facility], 05/18/21 [id number]
[2021-05-18 19:56] VITALS: BP 155/83
[2021-05-18] MEDS: ATORVASTATIN CALCIUM 20 MG TABLET PO SCH (21:00)
--- NOTE | 2021-05-18 21:35 | PDOC ---
Exam Note: Brennen Note: Please also refer to the separate dictated note~for this date of service dictated separately.~Patient seen individually. Discussed the patient with Nursing staff reviewed the chart.~Reviewed interim history and current functioning. Reviewed vital signs,~Labs/ Radiology~and current medications noted below. Continue current treatment with the changes noted in the dictated addendum note Assessment: Vital Signs/I&O: Vital Signs Date Time Temp Pulse Resp B/P (MAP) Pulse Ox O2 Delivery O2 Flow Rate FiO2 05/18/21 19:56 98.2 105 28 155/83 (107) 89 NonRebreather Mask 10.0 I & O 05/17/21 05/17/21 05/18/21 15:00 23:00 07:00 Intake Total 600 ml 480 ml 240 ml Balance 600 ml 480 ml 240 ml Labs: Laboratory Tests Test 05/18/21 07:50 05/18/21 07:55 White Blood Count 18.8 x10^3/uL (4.0-11.0) H Red Blood Count 4.43 x10^6/uL (4.30-5.70) Hemoglobin 13.4 g/dL (13.0-17.5) Hematocrit 41.5 % (39.0-53.0) Mean Corpuscular Volume 94 fL (79-100) Mean Corpuscular Hemoglobin 30 pg (25-35) Mean Corpuscular Hemoglobin Concent 32 g/dL (31-37) Red Cell Distribution Width 16.7 % (11.5-14.5) H Platelet Count 175 x10^3/uL (140-400) Neutrophils (%) (Auto) 88 % (31-73) H Lymphocytes (%) (Auto) 7 % (24-48) L Monocytes (%) (Auto) 6 % (0-9) Eosinophils (%) (Auto) 0 % (0-3) Basophils (%) (Auto) 0 % (0-3) Neutrophils # (Auto) 16.4 x10^3uL (1.8-7.7) H Lymphocytes # (Auto) 1.3 x10^3/uL (1.0-4.8) Monocytes # (Auto) 1.0 x10^3/uL (0.0-1.1) Eosinophils # (Auto) 0.0 x10^3/uL (0.0-0.7) Basophils # (Auto) 0.1 x10^3/uL (0.0-0.2) Segmented Neutrophils % 83 % (35-66) H Band Neutrophils % 3 % (0-9) Lymphocytes % 13 % (24-48) L Monocytes % 1 % (0-10) Nucleated Red Blood Cells 2 Platelet Estimate Adequate (ADEQUATE) Prothrombin Time 25.6 SEC (9.4-11.4) H Prothrombin Time INR 2.5 (0.9-1.1) H Sodium Level 147 mmol/L (136-145) H Potassium Level 4.2 mmol/L (3.5-5.1) Chloride Level 112 mmol/L (98-107) H Carbon Dioxide Level 18 mmol/L (21-32) L Anion Gap 17 (6-14) H Blood Urea Nitrogen 51 mg/dL (8-26) H Creatinine 1.7 mg/dL (0.7-1.3) H Estimated GFR (Cockcroft-Gault) 38.6 BUN/Creatinine Ratio 30 (6-20) H Glucose Level 140 mg/dL (70-99) H Calcium Level 7.7 mg/dL (8.5-10.1) L Total Bilirubin 0.7 mg/dL (0.2-1.0) Aspartate Amino Transferase (AST) 58 U/L (15-37) H Alanine Aminotransferase (ALT) 52 U/L (16-63) Alkaline Phosphatase 104 U/L (46-116) [id number]-Type Natriuretic Peptide 8120 pg/mL (0-449) H Total Protein 6.4 g/dL (6.4-8.2) Albumin 2.7 g/dL (3.4-5.0) L Albumin/Globulin Ratio 0.7 (1.0-1.7) L Current Medications: Meds: Laboratory Tests Test 05/18/21 07:50 05/18/21 07:55 White Blood Count 18.8 x10^3/uL Red Blood Count 4.43 x10^6/uL Hemoglobin 13.4 g/dL Hematocrit 41.5 % Mean Corpuscular Volume 94 fL Mean Corpuscular Hemoglobin 30 pg Mean Corpuscular Hemoglobin Concent 32 g/dL Red Cell Distribution Width 16.7 % Platelet Count 175 x10^3/uL Neutrophils (%) (Auto) 88 % Lymphocytes (%) (Auto) 7 % Monocytes (%) (Auto) 6 % Eosinophils (%) (Auto) 0 % Basophils (%) (Auto) 0 % Neutrophils # (Auto) 16.4 x10^3uL Lymphocytes # (Auto) 1.3 x10^3/uL Monocytes # (Auto) 1.0 x10^3/uL Eosinophils # (Auto) 0.0 x10^3/uL Basophils # (Auto) 0.1 x10^3/uL Segmented Neutrophils % 83 % Band Neutrophils % 3 % Lymphocytes % 13 % Monocytes % 1 % Nucleated Red Blood Cells 2 Platelet Estimate Adequate Prothrombin Time 25.6 SEC Prothromb Time International Ratio 2.5 Sodium Level 147 mmol/L Potassium Level 4.2 mmol/L Chloride Level 112 mmol/L Carbon Dioxide Level 18 mmol/L Anion Gap 17 Blood Urea Nitrogen 51 mg/dL Creatinine 1.7 mg/dL Estimated GFR (Cockcroft-Gault) 38.6 BUN/Creatinine Ratio 30 Glucose Level 140 mg/dL Calcium Level 7.7 mg/dL Total Bilirubin 0.7 mg/dL Aspartate Amino Transf (AST/SGOT) 58 U/L Alanine Aminotransferase (ALT/SGPT) 52 U/L Alkaline Phosphatase 104 U/L [id number]-Type Natriuretic Peptide 8120 pg/mL Total Protein 6.4 g/dL Albumin 2.7 g/dL Albumin/Globulin Ratio 0.7 Current Medications Medications (Trade) Dose Ordered Sig/Mary Route PRN Reason Start Time Stop Time Status Last Admin Dose Admin Dextrose 1,000 ml @ 100 mls/hr Q10H IV 05/12/21 17:00 05/12/21 18:04 DC Ceftriaxone Sodium 1 gm/ Sodium Chloride 50 ml @ 100 mls/hr Q24H IV 05/12/21 20:00 05/12/21 18:04 DC Dexamethasone Sodium Phosphate (Decadron) 12 mg DAILY IV 05/13/21 09:00 05/12/21 18:04 DC Enoxaparin Sodium (Lovenox 30mg Syringe) 30 mg Q24H SQ 05/12/21 17:00 05/12/21 18:25 DC Cephalexin HCl (Keflex) 500 mg TID PO 05/12/21 21:00 05/18/21 15:35 DC 05/18/21 08:59 Azithromycin (Zithromax) 500 mg DAILY PO 05/13/21 09:00 05/18/21 08:58 Dexamethasone (Decadron) 12 mg DAILYWBKFT PO 05/13/21 08:00 05/18/21 08:58 Olanzapine (ZyPREXA ZYDIS) 2.5 mg PRN Q2HRS PRN PO PSYCHOSIS 05/12/21 18:15 05/18/21 09:00 Quetiapine Fumarate (SEROquel) 25 mg BID PO 05/12/21 21:00 05/18/21 08:59 Dextrose 1,000 ml @ 100 mls/hr Q10H IV 05/12/21 22:45 05/18/21 20:51 Acetaminophen (Tylenol) 650 mg PRN Q6HRS PRN PO MILD PAIN / TEMP > 100.3'F 05/12/21 22:45 05/16/21 20:19 Lactobacillus Rhamnosus (Culturelle) 1 cap BID PO 05/13/21 21:00 05/18/21 08:59 Allopurinol (Zyloprim) 100 mg BID PO 05/13/21 21:00 05/18/21 08:58 Aspirin (Aspirin Chewable) 81 mg DAILY PO 05/14/21 09:00 05/18/21 08:58 Finasteride (Proscar) 5 mg DAILY PO 05/14/21 09:00 05/18/21 08:59 Levothyroxine Sodium (Synthroid) 75 mcg DAILY06 PO 05/14/21 06:00 05/18/21 08:59 Mirabegron (Myrbetriq) 25 mg DAILY PO 05/14/21 09:00 05/17/21 09:20 Pantoprazole Sodium (Protonix) 40 mg DAILY PO 05/14/21 09:00 05/15/21 08:39 DC 05/14/21 08:50 Spironolactone (Aldactone) 25 mg Q48H PO 05/14/21 09:00 05/17/21 09:19 Atorvastatin Calcium (Lipitor) 80 mg QHS PO 05/13/21 21:00 05/17/21 20:21 Lisinopril (Prinivil) 40 mg DAILY PO 05/14/21 09:00 05/18/21 09:00 Cyanocobalamin (Vitamin B-12) 1,000 mcg 1200 PO 05/14/21 12:00 05/17/21 12:07 Gabapentin (Neurontin) 400 mg TID PO 05/13/21 21:00 05/18/21 08:59 Multivitamins/ Calcium (Thera-M Plus) 1 tab DAILY PO 05/14/21 09:00 05/18/21 08:58 Dexamethasone (Maxidex) 1 drop BID OU 05/13/21 21:00 05/18/21 20:51 Multi-Ingredient Ointment (Analgesic [place]) 1 mechelle PRN QID PRN TP MUSCLE PAIN 05/13/21 16:45 Al Hydroxide/Mg Hydroxide (Mylanta Plus Xs) 15 ml PRN AFTMEALHC PRN PO DYSPEPSIA 05/13/21 16:45 Magnesium Hydroxide (Milk Of Magnesia) 2,400 mg PRN QHS PRN PO CONSTIPATION 05/13/21 16:45 Trazodone HCl (Desyrel) 50 mg PRN QHS PRN PO insomnia 05/13/21 16:45 05/17/21 20:20 Nystatin (Nystop) 1 mechelle PRN BID PRN TP TO BILATERAL GROINS 05/13/21 16:45 Sertraline HCl (Zoloft) 25 mg DAILY PO 05/14/21 09:00 05/14/21 21:00 DC 05/14/21 08:53 Sertraline HCl (Zoloft) 50 mg DAILY PO 05/15/21 09:00 05/18/21 08:59 Warfarin Sodium (Coumadin Per Pharmacy) 1 each PRN DAILY PRN MC SEE COMMENTS 05/13/21 17:00 05/18/21 16:19 Warfarin Sodium (Coumadin) 7.5 mg 1X ONCE PO 05/13/21 17:00 05/13/21 17:01 DC 05/13/21 17:14 Warfarin Sodium (Coumadin) 7.5 mg 1X WARF ONCE PO 05/14/21 16:00 05/14/21 16:01 DC 05/14/21 15:54 Warfarin Sodium (Coumadin) 7.5 mg 1X WARF ONCE PO 05/15/21 16:00 05/15/21 16:02 DC 05/15/21 16:00 Pantoprazole Sodium (Protonix) 40 mg DAILYAC PO 05/16/21 07:30 05/17/21 09:20 Warfarin Sodium (Coumadin) 5 mg 1X WARF ONCE PO 05/16/21 16:00 05/16/21 16:01 DC 05/16/21 16:19 Neomycin/ Polymyxin/ Bacitracin (Triple Antibiotic Ointment) 1 pkt BID TP 05/16/21 21:00 05/18/21 20:51 Warfarin Sodium (Coumadin - No Dose Today) 1 each 1X WARF ONCE MC 05/17/21 16:00 05/17/21 16:01 DC Warfarin Sodium (Coumadin) 2.5 mg 1X WARF ONCE PO 05/18/21 16:00 05/18/21 16:01 DC Piperacillin Sod/ Tazobactam Sod 2.25 gm/Sodium Chloride 50 ml @ 100 mls/hr Q8HRS IV 05/18/21 16:00 05/18/21 20:51 Vancomycin HCl (Vanco Per Pharmacy) 1 each PRN DAILY PRN MC SEE COMMENTS 05/18/21 15:15 05/18/21 16:12 Vancomycin HCl 2 gm/Sodium Chloride 500 ml @ 250 mls/hr 1X ONCE IV 05/18/21 16:00 05/18/21 17:59 DC 05/18/21 16:00 Vancomycin HCl 1.5 gm/Sodium Chloride 500 ml @ 250 mls/hr Q24H IV 05/19/21 16:00 Vancomycin HCl (Vancomycin Trough Level) 1 each 1X ONCE MC 05/20/21 15:30 05/20/21 15:31 Lorazepam (Ativan Inj) 0.25 mg PRN Q8HRS PRN IVP ANXIETY / AGITATION 05/18/21 17:30 05/18/21 18:55 Current Medications Medications (Trade) Dose Ordered Sig/Mary Route PRN Reason Start Time Stop Time Status Last Admin Dose Admin Piperacillin Sod/ Tazobactam Sod 2.25 gm/Sodium Chloride 50 ml @ 100 mls/hr Q8HRS IV 05/18/21 16:00 05/18/21 20:51 Vancomycin HCl (Vanco Per Pharmacy) 1 each PRN DAILY PRN MC SEE COMMENTS 05/18/21 15:15 05/18/21 16:12 Vancomycin HCl 2 gm/Sodium Chloride 500 ml @ 250 mls/hr 1X ONCE IV 05/18/21 16:00 05/18/21 17:59 DC 05/18/21 16:00 Lorazepam (Ativan Inj) 0.25 mg PRN Q8HRS PRN IVP ANXIETY / AGITATION 05/18/21 17:30 05/18/21 18:55 I have reviewed the current psychotropics carefully including drug interactions. Risk benefit ratio favors no change other than as noted in my dictated progress note. Diagnosis: Problems: (1) Impulse control disorder, unspecified (2) Anxiety disorder, unspecified (3) Dementia, vascular, with depression (4) Dementia, vascular, with delusions (5) Dementia in Alzheimer's disease with depression (6) Dementia in Alzheimer's disease with delusions (7) Dementia of the Alzheimer's type with early onset with behavioral disturbance (8) Major neurocognitive disorder (9) COVID-19 JAE HERNANDEZ MD May 18, 2021 21:35
--- NOTE | 2021-05-18 23:23 | PN ---
DATE: 05/18/2021 SUBJECTIVE: The patient was noted by the nursing staff to be hypoxic, diaphoretic. His white cell count has risen dramatically from 7.5 to 18.8. His beta natriuretic peptide was up to 8120. His prothrombin time and INR was down to 25 and 2.5. We did start him on IV vancomycin and Zosyn. PHYSICAL EXAMINATION: GENERAL: When I examined him this afternoon, he was resting flat in bed, in no apparent respiratory distress, pale. No jaundice, cyanosis. No lymphadenopathy. No thyromegaly. No jugular venous distention. No limb edema. VITAL SIGNS: Her heart rate was 88, blood pressure was 99/59, temperature was 97, respiratory rate 20 and oxygen saturation was 90% on 4 liters of oxygen. HEAD, EYES, EARS, NOSE, AND THROAT: Normocephalic, atraumatic. NECK: Supple. HEART: Normal first and second heart sounds. No gallop or murmur. CHEST: Clear to auscultation. No crepitation or rhonchi. ABDOMEN: Distended, soft, nontender. NEUROLOGIC: He is demented without any obvious lateralizing sign. All his cranial nerves intact. He moves his upper extremity much better than his lower extremities. He is retaining urine and we have straight catheterized him and drained about 300 mL of urine. His intake was 2000, no output was recorded. LABORATORY DATA: This morning showed a white cell count up to 18,800, hemoglobin 13, hematocrit 41, MCV 94 and platelet count of 175,000. His prothrombin time was 25.6, INR of 2.5. His chemistry showed a serum sodium 147, potassium 4.2, chloride 112, bicarbonate 18, anion gap of 17, BUN 51, creatinine 1.7. Estimated GFR was 38 mL per minute. His glucose 140, calcium was 7.7. Total bilirubin, AST, ALT, alkaline phosphatase were normal. Beta natriuretic peptide was 8000. His total protein 6.4, albumin 2.7. His urinalysis has 11-20 rbc's, moderate amount of bacteria. ASSESSMENT: 1. COVID-19 infection. 2. Acute hypoxic respiratory failure. 3. Hypernatremia. The serum sodium is slightly up to 147. 4. Acute on chronic kidney injury. His creatinine has risen from 1.4 to 1.7. 5. Gastroesophageal reflux disease. 6. Hypertension. 7. Hyperlipidemia. 8. Benign prostatic hypertrophy. PLAN: To continue with all his psychotropic medication. Continue with IV antibiotic in the form of Zosyn and vancomycin. I discontinued the Zithromax and ceftriaxone. Continue with dexamethasone. His PT and INR are within therapeutic range and the pharmacy adjust the dose. RIKKI DR: Jomar TID: [id number]
[2021-05-19 05:00] VITALS: BP 173/84
[2021-05-19] MEDS: LEVOTHYROXINE 75 MCG TABLET PO SCH (05:29)
[2021-05-19] MEDS: PIPERACILLIN/TAZOBACTAM 2.25 GM in IV NORMAL SALINE 50ML 50 ML IV SCH ×3 (05:29→22:00)
--- NOTE | 2021-05-19 05:42 | NUR ---
PT YELLING OUT AND TRYING TO HIT STAFF DURING SHIFT CHANGE. WHEN PT WAS APPROACHED TO REDIRECT PT APPEARED TO BE BREATHING HEAVY. OXYGEN SATURATION WAS THEN CHECKED. O2 SATURATION SITTING AT 74% ON RMA. SIMPLE MASK WAS THEN PLACED ON PT W/ LITTLE TO NO INCREASE IN OXYGEN SATURATION. PT THEN PLACED ON NON-REBREATHER MASK AT 10L. PT OXYGEN SATURATION THEN INCREASED TO 88-90%. OXYGEN INCREASED TO 12L. PT OXYGEN SATURATION IS NOW RESTING BETWEEN 90-92%. PT CONTINUALLY GETS AGITATED W/ MASK ON FACE AND BEGINS TO TAKE SHALLOW BREATHS AND DECREASE OXYGEN SATURATION. PT GIVEN PRN ATIVAN INDICATED. PT IS NOW RESTING W/ MINIMAL AMOUNTS OF AGITATION. HS MEDICATIONS WHERE HELD. PT IS UNABLE TO SWALLOW W/O RISK OF ASPIRATION AT THIS TIME.
--- NOTE | 2021-05-19 07:40 | NUR ---
Patient is agitated and restless. He is trying to get out of bed and fighting the restraints. Patient does not respond to questions or verbal redirections. He is breathing heavy, with wheezes in the right lung michelle, coarse lung sound in the left, SpO2=81% on 15Lpm via non-rebreather, Respirations=26/min, ZN=[id number]. PRN medication provided per eMAR, will continue to monitor and report to MD.
[2021-05-19 07:54] LABS: ALBUMIN 2.3 g/dL (3.4-5.0); ALBUMIN/GLOBULIN RATIO 0.5 (1.0-1.7); CALCIUM 7.7 mg/dL (8.5-10.1); POTASSIUM 4.5 mmol/L (3.5-5.1); TOTAL BILIRUBIN 0.8 mg/dL (0.2-1.0); TOTAL PROTEIN 6.6 g/dL (6.4-8.2)
[2021-05-19 07:56] LABS: HEMATOCRIT 40.3 % (39.0-53.0); HEMOGLOBIN 13.1 g/dL (13.0-17.5); RED BLOOD COUNT 4.26 x10^6/uL (4.30-5.70); RED CELL DISTRIBUTION WIDTH 16.8 % (11.5-14.5); WHITE BLOOD COUNT 19.5 x10^3/uL (4.0-11.0)
--- NOTE | 2021-05-19 08:26 | PDOC ---
Exam Note: Brennen Note: This note is a late entry for 05/18/2021 covers elements not covered in my initial note. Subjective: The patient was reviewed on 05/18/2021 by Gwen BEE, discussed and reviewed the chart and interim history. The patient had a very difficult day. He has been pulling out his IV and oxygen off. Medically he seems more compromised. He has had to be restrained to help keep the IV in place, and increased confusion. He does have spiking temperature and increased white cell counts. We will add Ativan 0.25 mg IV q.2h. p.r.n. anxiety and agitation, max 0.75 mg in 24 hours. Review of Systems: Per nursing report positive for tiredness. No CV, , eye, ENT system symptoms on review. Impaired ambulation. Reliability poor. Mental Status Exam: Observed by nursing staff, the patient is oriented to himself. Insight and judgment, recent and remote memory, attention and concentration, fund of knowledge is poor consistent with his diagnoses. Laboratory Data: Reviewed. Impression: Major neurocognitive disorder, Alzheimer, vascular with delusion, depression, behavioral disturbance. Anxiety disorder unspecified. Impulse control disorder unspecified. Plan: No change from initial note. Continue medical management with Dr. Olson. Add Ativan IV p.r.n. Maintain Depakote, Cymbalta, gabapentin, trazodone, Wellbutrin, Abilify and Zyprexa p.r.n. Adjust further as clinically indicated. Assessment: Vital Signs/I&O: Vital Signs Date Time Temp Pulse Resp B/P (MAP) Pulse Ox O2 Delivery O2 Flow Rate FiO2 05/19/21 05:00 96.7 74 20 173/84 (113) 92 Room Air 15.0 I & O 05/18/21 05/18/21 05/19/21 15:00 23:00 07:00 Intake Total 50 ml 50 ml Balance 50 ml 50 ml Labs: Laboratory Tests Test 05/19/21 07:03 White Blood Count 19.5 x10^3/uL (4.0-11.0) H Red Blood Count 4.26 x10^6/uL (4.30-5.70) L Hemoglobin 13.1 g/dL (13.0-17.5) Hematocrit 40.3 % (39.0-53.0) Mean Corpuscular Volume 95 fL (79-100) Mean Corpuscular Hemoglobin 31 pg (25-35) Mean Corpuscular Hemoglobin Concent 33 g/dL (31-37) Red Cell Distribution Width 16.8 % (11.5-14.5) H Platelet Count 168 x10^3/uL (140-400) Sodium Level 148 mmol/L (136-145) H Potassium Level 4.5 mmol/L (3.5-5.1) Chloride Level 113 mmol/L (98-107) H Carbon Dioxide Level 21 mmol/L (21-32) Anion Gap 14 (6-14) Blood Urea Nitrogen 56 mg/dL (8-26) H Creatinine 2.0 mg/dL (0.7-1.3) H Estimated GFR (Cockcroft-Gault) 32.0 BUN/Creatinine Ratio 28 (6-20) H Glucose Level 198 mg/dL (70-99) H Calcium Level 7.7 mg/dL (8.5-10.1) L Total Bilirubin 0.8 mg/dL (0.2-1.0) Aspartate Amino Transferase (AST) 58 U/L (15-37) H Alanine Aminotransferase (ALT) 45 U/L (16-63) Alkaline Phosphatase 99 U/L (46-116) Total Protein 6.6 g/dL (6.4-8.2) Albumin 2.3 g/dL (3.4-5.0) L Albumin/Globulin Ratio 0.5 (1.0-1.7) L Current Medications: Meds: Laboratory Tests Test 05/19/21 07:03 White Blood Count 19.5 x10^3/uL Red Blood Count 4.26 x10^6/uL Hemoglobin 13.1 g/dL Hematocrit 40.3 % Mean Corpuscular Volume 95 fL Mean Corpuscular Hemoglobin 31 pg Mean Corpuscular Hemoglobin Concent 33 g/dL Red Cell Distribution Width 16.8 % Platelet Count 168 x10^3/uL Sodium Level 148 mmol/L Potassium Level 4.5 mmol/L Chloride Level 113 mmol/L Carbon Dioxide Level 21 mmol/L Anion Gap 14 Blood Urea Nitrogen 56 mg/dL Creatinine 2.0 mg/dL Estimated GFR (Cockcroft-Gault) 32.0 BUN/Creatinine Ratio 28 Glucose Level 198 mg/dL Calcium Level 7.7 mg/dL Total Bilirubin 0.8 mg/dL Aspartate Amino Transf (AST/SGOT) 58 U/L Alanine Aminotransferase (ALT/SGPT) 45 U/L Alkaline Phosphatase 99 U/L Total Protein 6.6 g/dL Albumin 2.3 g/dL Albumin/Globulin Ratio 0.5 Current Medications Medications (Trade) Dose Ordered Sig/Mary Route PRN Reason Start Time Stop Time Status Last Admin Dose Admin Dextrose 1,000 ml @ 100 mls/hr Q10H IV 05/12/21 17:00 05/12/21 18:04 DC Ceftriaxone Sodium 1 gm/ Sodium Chloride 50 ml @ 100 mls/hr Q24H IV 05/12/21 20:00 05/12/21 18:04 DC Dexamethasone Sodium Phosphate (Decadron) 12 mg DAILY IV 05/13/21 09:00 05/12/21 18:04 DC Enoxaparin Sodium (Lovenox 30mg Syringe) 30 mg Q24H SQ 05/12/21 17:00 05/12/21 18:25 DC Cephalexin HCl (Keflex) 500 mg TID PO 05/12/21 21:00 05/18/21 15:35 DC 05/18/21 08:59 Azithromycin (Zithromax) 500 mg DAILY PO 05/13/21 09:00 05/18/21 08:58 Dexamethasone (Decadron) 12 mg DAILYWBKFT PO 05/13/21 08:00 05/18/21 08:58 Olanzapine (ZyPREXA ZYDIS) 2.5 mg PRN Q2HRS PRN PO PSYCHOSIS 05/12/21 18:15 05/19/21 07:35 Quetiapine Fumarate (SEROquel) 25 mg BID PO 05/12/21 21:00 05/18/21 08:59 Dextrose 1,000 ml @ 100 mls/hr Q10H IV 05/12/21 22:45 05/18/21 20:51 Acetaminophen (Tylenol) 650 mg PRN Q6HRS PRN PO MILD PAIN / TEMP > 100.3'F 05/12/21 22:45 05/16/21 20:19 Lactobacillus Rhamnosus (Culturelle) 1 cap BID PO 05/13/21 21:00 05/18/21 08:59 Allopurinol (Zyloprim) 100 mg BID PO 05/13/21 21:00 05/18/21 08:58 Aspirin (Aspirin Chewable) 81 mg DAILY PO 05/14/21 09:00 05/18/21 08:58 Finasteride (Proscar) 5 mg DAILY PO 05/14/21 09:00 05/18/21 08:59 Levothyroxine Sodium (Synthroid) 75 mcg DAILY06 PO 05/14/21 06:00 05/18/21 08:59 Mirabegron (Myrbetriq) 25 mg DAILY PO 05/14/21 09:00 05/17/21 09:20 Pantoprazole Sodium (Protonix) 40 mg DAILY PO 05/14/21 09:00 05/15/21 08:39 DC 05/14/21 08:50 Spironolactone (Aldactone) 25 mg Q48H PO 05/14/21 09:00 05/17/21 09:19 Atorvastatin Calcium (Lipitor) 80 mg QHS PO 05/13/21 21:00 05/17/21 20:21 Lisinopril (Prinivil) 40 mg DAILY PO 05/14/21 09:00 05/18/21 09:00 Cyanocobalamin (Vitamin B-12) 1,000 mcg 1200 PO 05/14/21 12:00 05/17/21 12:07 Gabapentin (Neurontin) 400 mg TID PO 05/13/21 21:00 05/18/21 08:59 Multivitamins/ Calcium (Thera-M Plus) 1 tab DAILY PO 05/14/21 09:00 05/18/21 08:58 Dexamethasone (Maxidex) 1 drop BID OU 05/13/21 21:00 05/18/21 20:51 Multi-Ingredient Ointment (Analgesic [place]) 1 mechelle PRN QID PRN TP MUSCLE PAIN 05/13/21 16:45 Al Hydroxide/Mg Hydroxide (Mylanta Plus Xs) 15 ml PRN AFTMEALHC PRN PO DYSPEPSIA 05/13/21 16:45 Magnesium Hydroxide (Milk Of Magnesia) 2,400 mg PRN QHS PRN PO CONSTIPATION 05/13/21 16:45 Trazodone HCl (Desyrel) 50 mg PRN QHS PRN PO insomnia 05/13/21 16:45 05/17/21 20:20 Nystatin (Nystop) 1 mechelle PRN BID PRN TP TO BILATERAL GROINS 05/13/21 16:45 Sertraline HCl (Zoloft) 25 mg DAILY PO 05/14/21 09:00 05/14/21 21:00 DC 05/14/21 08:53 Sertraline HCl (Zoloft) 50 mg DAILY PO 05/15/21 09:00 05/18/21 08:59 Warfarin Sodium (Coumadin Per Pharmacy) 1 each PRN DAILY PRN MC SEE COMMENTS 05/13/21 17:00 05/18/21 16:19 Warfarin Sodium (Coumadin) 7.5 mg 1X ONCE PO 05/13/21 17:00 05/13/21 17:01 DC 05/13/21 17:14 Warfarin Sodium (Coumadin) 7.5 mg 1X WARF ONCE PO 05/14/21 16:00 05/14/21 16:01 DC 05/14/21 15:54 Warfarin Sodium (Coumadin) 7.5 mg 1X WARF ONCE PO 05/15/21 16:00 05/15/21 16:02 DC 05/15/21 16:00 Pantoprazole Sodium (Protonix) 40 mg DAILYAC PO 05/16/21 07:30 05/17/21 09:20 Warfarin Sodium (Coumadin) 5 mg 1X WARF ONCE PO 05/16/21 16:00 05/16/21 16:01 DC 05/16/21 16:19 Neomycin/ Polymyxin/ Bacitracin (Triple Antibiotic Ointment) 1 pkt BID TP 05/16/21 21:00 05/18/21 20:51 Warfarin Sodium (Coumadin - No Dose Today) 1 each 1X WARF ONCE MC 05/17/21 16:00 05/17/21 16:01 DC Warfarin Sodium (Coumadin) 2.5 mg 1X WARF ONCE PO 05/18/21 16:00 05/18/21 16:01 DC Piperacillin Sod/ Tazobactam Sod 2.25 gm/Sodium Chloride 50 ml @ 100 mls/hr Q8HRS IV 05/18/21 16:00 05/19/21 05:29 Vancomycin HCl (Vanco Per Pharmacy) 1 each PRN DAILY PRN MC SEE COMMENTS 05/18/21 15:15 05/18/21 16:12 Vancomycin HCl 2 gm/Sodium Chloride 500 ml @ 250 mls/hr 1X ONCE IV 05/18/21 16:00 05/18/21 17:59 DC 05/18/21 16:00 Vancomycin HCl 1.5 gm/Sodium Chloride 500 ml @ 250 mls/hr Q24H IV 05/19/21 16:00 Vancomycin HCl (Vancomycin Trough Level) 1 each 1X ONCE MC 05/20/21 15:30 05/20/21 15:31 Lorazepam (Ativan Inj) 0.25 mg PRN Q8HRS PRN IVP ANXIETY / AGITATION 05/18/21 17:30 05/19/21 03:25 Current Medications Medications (Trade) Dose Ordered Sig/Mary Route PRN Reason Start Time Stop Time Status Last Admin Dose Admin Piperacillin Sod/ Tazobactam Sod 2.25 gm/Sodium Chloride 50 ml @ 100 mls/hr Q8HRS IV 05/18/21 16:00 05/19/21 05:29 Vancomycin HCl (Vanco Per Pharmacy) 1 each PRN DAILY PRN MC SEE COMMENTS 05/18/21 15:15 05/18/21 16:12 Vancomycin HCl 2 gm/Sodium Chloride 500 ml @ 250 mls/hr 1X ONCE IV 05/18/21 16:00 05/18/21 17:59 DC 05/18/21 16:00 Lorazepam (Ativan Inj) 0.25 mg PRN Q8HRS PRN IVP ANXIETY / AGITATION 05/18/21 17:30 05/19/21 03:25 I have reviewed the current psychotropics carefully including drug interactions. Risk benefit ratio favors no change other than as noted in my dictated progress note. Diagnosis: Problems: (1) Impulse control disorder, unspecified (2) Anxiety disorder, unspecified (3) Dementia, vascular, with depression (4) Dementia, vascular, with delusions (5) Dementia in Alzheimer's disease with depression (6) Dementia in Alzheimer's disease with delusions (7) Dementia of the Alzheimer's type with early onset with behavioral disturbance (8) Major neurocognitive disorder (9) COVID-19 JAE HERNANDEZ MD May 19, 2021 08:26
--- NOTE | 2021-05-19 09:30 | NUR ---
Patient has been resting quietly in bed for about an hour with occasionally short fits of restlessness. His SpO2 has improved to about 90% on 15Lpm via non-rebreather, respirations are 22/minute, HR is highly variable from mid 40s to 90 beats per minute. He continues on isolation with restraints for safety; paged.
[2021-05-19 11:00] VITALS: BP 140/77
--- NOTE | 2021-05-19 11:00 | NUR ---
Patient is asleep, restless, and in bed. His SpO2=88% on 15Lpm via non-rebreather, respirations are 22/minute. High flow nasal cannula placed under the non-rebreather at an additional 10Lpm. Swabbed patient's mouth with oral moisturizing agent. Will continue to monitor and report to MD during rounds.
[2021-05-19] MEDS: IV DEXTROSE 5% 1,000 ML IV SCH (11:29)
[2021-05-19] MEDS: IPRATRPIUM/ALBUTEROL 0.5/2.5MG 3 ML NEBU. NEB SCH ×2 (12:03→15:40)
--- NOTE | 2021-05-19 12:07 | NUR ---
KATY contacted pt dtr/DPOA, Susan, to discuss pt medical condition and the concern that pt may need hospice. KATY went over pt lab concerns about potential trouble with his kidneys, pt having pneumonia and on 15L of oxygen, as well as his respirations which do not appear stable. Susan reports that they wish to speak to the hospitalist and would like for pt to receive aggressive treatment for the Covid and pneumonia. They realize that he is still in his quarantine and these are part of the Covid symptoms, tearfully stating "we are not going to give up on our Dad". KATY will relay this message to the hospitalist and request that he call the family. Susan reports that she goes to work around 1500. If he cannot call her before, he will need to call Araceli @ .
--- NOTE | 2021-05-19 12:25 | NUR ---
Patient was restless and agitated during administration of nebulizer treatment. He attempted to remove his oxygen or throw his legs out of the bed multiple times. Patient unable to respond to questions, not speaking clearly. PRN medication provided per eMAR, will continue to monitor and report to MD during rounds.
--- NOTE | 2021-05-19 12:26 | RAD ---
XR CHEST 1V History: Reason: increased O2 needs / Spl. Instructions: / History: Comparison: May 18, 2021 Findings: Increased severe diffuse pulmonary opacities. No pleural effusion. No pneumothorax. Unchanged heart s ize. Impression: 1. Increased severe diffuse pulmonary opacities. Electronically signed by: Israel Dallas DO (05/19/2021 12:24 PM) [id number]
[2021-05-19] MEDS: LACTOBACILLUS RHAMNOSUS GG 1 CAPSULE. PO SCH (12:30)
[2021-05-19] MEDS: SERTRALINE 50 MG TABLET. PO SCH (12:30)
[2021-05-19] MEDS: PANTOPRAZOLE 40 MG TABLET. PO SCH (12:30)
[2021-05-19] MEDS: ALLOPURINOL 100 MG TABLET. PO SCH (12:30)
[2021-05-19] MEDS: DEXAMETHASONE 4 MG TABLET PO SCH (12:30)
[2021-05-19] MEDS: ASPIRIN CHEWABLE 81 MG TABLET. PO SCH (12:30)
[2021-05-19] MEDS: DEXAMETHASONE 0.1% OPHTH SOLUTION 5ML BOTTLE. OU SCH ×2 (12:30→21:00)
[2021-05-19] MEDS: LISINOPRIL 20 MG TABLET PO SCH (12:30)
[2021-05-19] MEDS: MIRABEGRON 25 MG TAB.ER.24H PO SCH (12:30)
[2021-05-19] MEDS: MULTIVITAMIN with MINERAL TABLET. PO SCH (12:30)
[2021-05-19] MEDS: GABAPENTIN 400 MG CAPSULE. PO SCH ×2 (12:30→14:00)
[2021-05-19] MEDS: CYANOCOBALAMIN (VITAMIN B-12) 1,000 MCG TABLET. PO SCH (12:30)
[2021-05-19] MEDS: QUEtiapine 25 MG TABLET. PO SCH (12:30)
[2021-05-19] MEDS: FINASTERIDE 5 MG TABLET. PO SCH (12:30)
[2021-05-19] MEDS: AZITHROMYCIN 250 MG TABLET. PO SCH (12:30)
[2021-05-19] MEDS: NEOMY/BACITR/POLYMYXIN OINT PACKET. TP SCH (12:30)
--- NOTE | 2021-05-19 12:30 | NUR ---
Patient has refused multiple attempts to provide morning oral medications. He is unable to follow directions due to confusion and is not taking his medications. Will continue to monitor and report to MD during rounds.
[2021-05-19 15:00] VITALS: BP 173/96
--- NOTE | 2021-05-19 15:10 | NUR ---
Patient has removed his nonrebreather mask and his nasal cannula; SpO2=79%. Patient continues to be restless, repeatedly reaching for his oxygen mask, kicking his legs, and saying he cannot breathe. Oxygen mask and cannula put in place, patient repositioned in bed, will return to re-assess SpO2. Addendum: 05/19/21 at 1537 by RASHID ROWAN II, RN RT is currently giving patient a nebulizer treatment, will check SpO2 after one hour post-nebulizing isolation
[2021-05-19] MEDS ORDERED: WARFARIN 2.5 MG TABLET. PO ONE (16:00)
[2021-05-19] MEDS ORDERED: WARFARIN 1 MG TABLET. PO ONE (16:00)
[2021-05-19] MEDS ORDERED: VANCOMYCIN 1.5 GM in IV NORMAL SALINE 500ML 500 ML IV SCH (16:00)
[2021-05-19] MEDS: DEXAMETHASONE SOD PHOS 10 MG/ML VIAL. IVP SCH (17:00)
[2021-05-19] MEDS: MORPHINE SULFATE 4 MG/ML DISP.SYRIN. IV PRN (18:35)
[2021-05-19 19:00] VITALS: BP 166/89
[2021-05-19] MEDS ORDERED: MAGNESIUM SULFATE 2GM 50 ML IV PRN (19:30)
[2021-05-19] MEDS: METOPROLOL TARTRATE 5 MG/5 ML VIAL. IV PRN (20:22)
--- NOTE | 2021-05-19 21:40 | PDOC ---
Exam Note: Brennen Note: Please also refer to the separate dictated note~for this date of service dictated separately.~Patient seen individually. Discussed the patient with Nursing staff reviewed the chart.~Reviewed interim history and current functioning. Reviewed vital signs,~Labs/ Radiology~and current medications noted below. Continue current treatment with the changes noted in the dictated addendum note Assessment: Vital Signs/I&O: Vital Signs Date Time Temp Pulse Resp B/P (MAP) Pulse Ox O2 Delivery O2 Flow Rate FiO2 05/19/21 20:22 108 166/89 05/19/21 19:00 98.7 24 92 NonRebreather Mask 15.0 I & O 05/18/21 05/18/21 05/19/21 15:00 23:00 07:00 Intake Total 50 ml 50 ml Balance 50 ml 50 ml Labs: Laboratory Tests Test 05/19/21 07:03 White Blood Count 19.5 x10^3/uL (4.0-11.0) H Red Blood Count 4.26 x10^6/uL (4.30-5.70) L Hemoglobin 13.1 g/dL (13.0-17.5) Hematocrit 40.3 % (39.0-53.0) Mean Corpuscular Volume 95 fL (79-100) Mean Corpuscular Hemoglobin 31 pg (25-35) Mean Corpuscular Hemoglobin Concent 33 g/dL (31-37) Red Cell Distribution Width 16.8 % (11.5-14.5) H Platelet Count 168 x10^3/uL (140-400) Prothrombin Time 19.8 SEC (9.4-11.4) H Prothrombin Time INR 1.9 (0.9-1.1) H Sodium Level 148 mmol/L (136-145) H Potassium Level 4.5 mmol/L (3.5-5.1) Chloride Level 113 mmol/L (98-107) H Carbon Dioxide Level 21 mmol/L (21-32) Anion Gap 14 (6-14) Blood Urea Nitrogen 56 mg/dL (8-26) H Creatinine 2.0 mg/dL (0.7-1.3) H Estimated GFR (Cockcroft-Gault) 32.0 BUN/Creatinine Ratio 28 (6-20) H Glucose Level 198 mg/dL (70-99) H Calcium Level 7.7 mg/dL (8.5-10.1) L Magnesium Level 3.3 mg/dL (1.8-2.4) H Total Bilirubin 0.8 mg/dL (0.2-1.0) Aspartate Amino Transferase (AST) 58 U/L (15-37) H Alanine Aminotransferase (ALT) 45 U/L (16-63) Alkaline Phosphatase 99 U/L (46-116) AV-[id number]-Type Natriuretic Peptide 7588 pg/mL (0-449) H Total Protein 6.6 g/dL (6.4-8.2) Albumin 2.3 g/dL (3.4-5.0) L Albumin/Globulin Ratio 0.5 (1.0-1.7) L Current Medications: Meds: Laboratory Tests Test 05/19/21 07:03 White Blood Count 19.5 x10^3/uL Red Blood Count 4.26 x10^6/uL Hemoglobin 13.1 g/dL Hematocrit 40.3 % Mean Corpuscular Volume 95 fL Mean Corpuscular Hemoglobin 31 pg Mean Corpuscular Hemoglobin Concent 33 g/dL Red Cell Distribution Width 16.8 % Platelet Count 168 x10^3/uL Prothrombin Time 19.8 SEC Prothromb Time International Ratio 1.9 Sodium Level 148 mmol/L Potassium Level 4.5 mmol/L Chloride Level 113 mmol/L Carbon Dioxide Level 21 mmol/L Anion Gap 14 Blood Urea Nitrogen 56 mg/dL Creatinine 2.0 mg/dL Estimated GFR (Cockcroft-Gault) 32.0 BUN/Creatinine Ratio 28 Glucose Level 198 mg/dL Calcium Level 7.7 mg/dL Magnesium Level 3.3 mg/dL Total Bilirubin 0.8 mg/dL Aspartate Amino Transf (AST/SGOT) 58 U/L Alanine Aminotransferase (ALT/SGPT) 45 U/L Alkaline Phosphatase 99 U/L [id number]-[id number]-Type Natriuretic Peptide 7588 pg/mL Total Protein 6.6 g/dL Albumin 2.3 g/dL Albumin/Globulin Ratio 0.5 Current Medications Medications (Trade) Dose Ordered Sig/Mary Route PRN Reason Start Time Stop Time Status Last Admin Dose Admin Dextrose 1,000 ml @ 100 mls/hr Q10H IV 05/12/21 17:00 05/12/21 18:04 DC Ceftriaxone Sodium 1 gm/ Sodium Chloride 50 ml @ 100 mls/hr Q24H IV 05/12/21 20:00 05/12/21 18:04 DC Dexamethasone Sodium Phosphate (Decadron) 12 mg DAILY IV 05/13/21 09:00 05/12/21 18:04 DC Enoxaparin Sodium (Lovenox 30mg Syringe) 30 mg Q24H SQ 05/12/21 17:00 05/12/21 18:25 DC Cephalexin HCl (Keflex) 500 mg TID PO 05/12/21 21:00 05/18/21 15:35 DC 05/18/21 08:59 Azithromycin (Zithromax) 500 mg DAILY PO 05/13/21 09:00 05/19/21 16:56 DC 05/18/21 08:58 Dexamethasone (Decadron) 12 mg DAILYWBKFT PO 05/13/21 08:00 05/19/21 16:56 DC 05/18/21 08:58 Olanzapine (ZyPREXA ZYDIS) 2.5 mg PRN Q2HRS PRN PO PSYCHOSIS 05/12/21 18:15 05/19/21 16:58 DC 05/19/21 07:35 Quetiapine Fumarate (SEROquel) 25 mg BID PO 05/12/21 21:00 05/19/21 16:58 DC 05/18/21 08:59 Dextrose 1,000 ml @ 100 mls/hr Q10H IV 05/12/21 22:45 05/19/21 11:29 Acetaminophen (Tylenol) 650 mg PRN Q6HRS PRN PO MILD PAIN / TEMP > 100.3'F 05/12/21 22:45 05/16/21 20:19 Lactobacillus Rhamnosus (Culturelle) 1 cap BID PO 05/13/21 21:00 05/19/21 16:58 DC 05/18/21 08:59 Allopurinol (Zyloprim) 100 mg BID PO 05/13/21 21:00 05/19/21 16:56 DC 05/18/21 08:58 Aspirin (Aspirin Chewable) 81 mg DAILY PO 05/14/21 09:00 05/19/21 16:56 DC 05/18/21 08:58 Finasteride (Proscar) 5 mg DAILY PO 05/14/21 09:00 05/19/21 16:56 DC 05/18/21 08:59 Levothyroxine Sodium (Synthroid) 75 mcg DAILY06 PO 05/14/21 06:00 05/19/21 16:58 DC 05/18/21 08:59 Mirabegron (Myrbetriq) 25 mg DAILY PO 05/14/21 09:00 05/19/21 16:56 DC 05/17/21 09:20 Pantoprazole Sodium (Protonix) 40 mg DAILY PO 05/14/21 09:00 05/15/21 08:39 DC 05/14/21 08:50 Spironolactone (Aldactone) 25 mg Q48H PO 05/14/21 09:00 05/19/21 16:56 DC 05/17/21 09:19 Atorvastatin Calcium (Lipitor) 80 mg QHS PO 05/13/21 21:00 05/19/21 16:56 DC 05/17/21 20:21 Lisinopril (Prinivil) 40 mg DAILY PO 05/14/21 09:00 05/19/21 16:56 DC 05/18/21 09:00 Cyanocobalamin (Vitamin B-12) 1,000 mcg 1200 PO 05/14/21 12:00 05/19/21 16:56 DC 05/17/21 12:07 Gabapentin (Neurontin) 400 mg TID PO 05/13/21 21:00 05/19/21 16:56 DC 05/18/21 08:59 Multivitamins/ Calcium (Thera-M Plus) 1 tab DAILY PO 05/14/21 09:00 05/19/21 16:58 DC 05/18/21 08:58 Dexamethasone (Maxidex) 1 drop BID OU 05/13/21 21:00 05/18/21 20:51 Multi-Ingredient Ointment (Analgesic [place]) 1 mechelle PRN QID PRN TP MUSCLE PAIN 05/13/21 16:45 Al Hydroxide/Mg Hydroxide (Mylanta Plus Xs) 15 ml PRN AFTMEALHC PRN PO DYSPEPSIA 05/13/21 16:45 Magnesium Hydroxide (Milk Of Magnesia) 2,400 mg PRN QHS PRN PO CONSTIPATION 05/13/21 16:45 Trazodone HCl (Desyrel) 50 mg PRN QHS PRN PO insomnia 05/13/21 16:45 05/17/21 20:20 Nystatin (Nystop) 1 mechelle PRN BID PRN TP TO BILATERAL GROINS 05/13/21 16:45 Sertraline HCl (Zoloft) 25 mg DAILY PO 05/14/21 09:00 05/14/21 21:00 DC 05/14/21 08:53 Sertraline HCl (Zoloft) 50 mg DAILY PO 05/15/21 09:00 05/19/21 16:58 DC 05/18/21 08:59 Warfarin Sodium (Coumadin Per Pharmacy) 1 each PRN DAILY PRN MC SEE COMMENTS 05/13/21 17:00 05/18/21 16:19 Warfarin Sodium (Coumadin) 7.5 mg 1X ONCE PO 05/13/21 17:00 05/13/21 17:01 DC 05/13/21 17:14 Warfarin Sodium (Coumadin) 7.5 mg 1X WARF ONCE PO 05/14/21 16:00 05/14/21 16:01 DC 05/14/21 15:54 Warfarin Sodium (Coumadin) 7.5 mg 1X WARF ONCE PO 05/15/21 16:00 05/15/21 16:02 DC 05/15/21 16:00 Pantoprazole Sodium (Protonix) 40 mg DAILYAC PO 05/16/21 07:30 05/19/21 16:58 DC 05/17/21 09:20 Warfarin Sodium (Coumadin) 5 mg 1X WARF ONCE PO 05/16/21 16:00 05/16/21 16:01 DC 05/16/21 16:19 Neomycin/ Polymyxin/ Bacitracin (Triple Antibiotic Ointment) 1 pkt BID TP 05/16/21 21:00 05/19/21 16:58 DC 05/18/21 20:51 Warfarin Sodium (Coumadin - No Dose Today) 1 each 1X WARF ONCE MC 05/17/21 16:00 05/17/21 16:01 DC Warfarin Sodium (Coumadin) 2.5 mg 1X WARF ONCE PO 05/18/21 16:00 05/18/21 16:01 DC Piperacillin Sod/ Tazobactam Sod 2.25 gm/Sodium Chloride 50 ml @ 100 mls/hr Q8HRS IV 05/18/21 16:00 05/19/21 14:15 Vancomycin HCl (Vanco Per Pharmacy) 1 each PRN DAILY PRN MC SEE COMMENTS 05/18/21 15:15 05/18/21 16:12 Vancomycin HCl 2 gm/Sodium Chloride 500 ml @ 250 mls/hr 1X ONCE IV 05/18/21 16:00 05/18/21 17:59 DC 05/18/21 16:00 Vancomycin HCl 1.5 gm/Sodium Chloride 500 ml @ 250 mls/hr Q24H IV 05/19/21 16:00 05/19/21 17:44 Vancomycin HCl (Vancomycin Trough Level) 1 each 1X ONCE MC 05/20/21 15:30 05/20/21 15:31 Lorazepam (Ativan Inj) 0.25 mg PRN Q8HRS PRN IVP ANXIETY / AGITATION 05/18/21 17:30 05/19/21 20:23 Albuterol/ Ipratropium (Duoneb) 3 ml RTQID NEB 05/19/21 12:00 05/19/21 16:56 DC 05/19/21 15:40 Morphine Sulfate (Morphine 4mg Syringe) 4 mg PRN Q2HR PRN IV PAIN 05/19/21 10:45 05/19/21 18:35 Warfarin Sodium (Coumadin) 2.5 mg 1X WARF ONCE PO 05/19/21 16:00 05/19/21 16:01 DC Warfarin Sodium (Coumadin) 1 mg 1X WARF ONCE PO 05/19/21 16:00 05/19/21 16:01 DC Dexamethasone Sodium Phosphate (Decadron) 10 mg DAILY IVP 05/19/21 17:00 05/19/21 17:00 Lorazepam (Ativan Inj) 0.5 mg PRN Q4HRS PRN IVP ANXIETY / AGITATION 05/19/21 17:00 05/19/21 17:46 Metoprolol Tartrate (Lopressor Vial) 5 mg PRN Q4HRS PRN IV TACHYCARDIA 05/19/21 19:15 05/19/21 20:22 Magnesium Sulfate 50 ml @ 25 mls/hr PRN 1X PRN IV hypomagnesium 05/19/21 19:30 Current Medications Medications (Trade) Dose Ordered Sig/Mary Route PRN Reason Start Time Stop Time Status Last Admin Dose Admin Vancomycin HCl 1.5 gm/Sodium Chloride 500 ml @ 250 mls/hr Q24H IV 05/19/21 16:00 05/19/21 17:44 Albuterol/ Ipratropium (Duoneb) 3 ml RTQID NEB 05/19/21 12:00 05/19/21 16:56 DC 05/19/21 15:40 Morphine Sulfate (Morphine 4mg Syringe) 4 mg PRN Q2HR PRN IV PAIN 05/19/21 10:45 05/19/21 18:35 Dexamethasone Sodium Phosphate (Decadron) 10 mg DAILY IVP 05/19/21 17:00 05/19/21 17:00 Lorazepam (Ativan Inj) 0.5 mg PRN Q4HRS PRN IVP ANXIETY / AGITATION 05/19/21 17:00 05/19/21 17:46 Metoprolol Tartrate (Lopressor Vial) 5 mg PRN Q4HRS PRN IV TACHYCARDIA 05/19/21 19:15 05/19/21 20:22 I have reviewed the current psychotropics carefully including drug interactions. Risk benefit ratio favors no change other than as noted in my dictated progress note. 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
[2021-05-19 23:00] VITALS: BP 146/80
--- NOTE | 2021-05-19 23:00 | PN ---
DATE: 05/19/2021 SUBJECTIVE: The patient is doing extremely poorly. He is extremely tachypneic and hypoxic. He has episodes of atrial fibrillation with rapid ventricular response, has also runs of ventricular tachycardia. He is on 30 liters of oxygen and on 15 liters by nasal cannula and 15 liters by nonrebreather mask. He could barely maintain his oxygen saturation at around 90%. He is retaining urine and his lab work showed that his sodium and BUN and creatinine are rising. We did straight cath him and drained about 300 mL of urine. He requires wrist restraints to keep the oxygen mask and nasal cannula. PHYSICAL EXAMINATION: GENERAL: When I examined him this afternoon, he was resting, propped up in bed, clearly tachypneic. There was no pallor, jaundice or cyanosis. No lymphadenopathy, no thyromegaly, no jugular venous distention. No limb edema. VITAL SIGNS: Her heart rate was 105, blood pressure was 173/96, temperature 97.9, respiratory rate was 24 and oxygen saturation was 85% on 30 liters of oxygen by nasal cannula as well as by nonrebreather mask. HEAD, EYES, EARS, NOSE, AND THROAT: Normocephalic, atraumatic. NECK: Supple. HEART: Normal first and second heart sounds. No gallop or murmur. CHEST: Showed central trachea with equally reduced expansion, reduced air entry, vesicular breath sounds with bilateral basal crepitation. I could not appreciate any rhonchi. ABDOMEN: Slightly distended, soft, nontender. NEUROLOGIC: He is very encephalopathic; however, he moves extremities without difficulty. His intake is 1300, no output was recorded. LABORATORY DATA: This morning showed his white cell count went up to 19,500, hemoglobin 13, hematocrit 40, MCV 95 and platelet count of 168,000. His chemistry showed a serum sodium 148, potassium 4.5, chloride 113, bicarbonate 21, anion gap of 14, BUN 56, creatinine 2. Estimated GFR was 32 mL per minute. His glucose 198, calcium was 7.7. Total bilirubin, AST, ALT, alkaline phosphatase were normal. His total protein 6.6, albumin 2.3. ASSESSMENT: 1. Acute hypoxic respiratory failure. 2. COVID-19 pneumonia plus possible superimposed aspiration pneumonia versus healthcare-associated pneumonia. 3. Hypernatremia. Serum sodium is up to 149. 4. Acute on chronic kidney injury. His creatinine went up from 1.4 to 2. 5. Gastroesophageal reflux disease. 6. Hypertension. 7. Hyperlipidemia. 8. Benign prostatic hypertrophy. 9. Profound dementia. PLAN: My plan is to discontinue all oral medication as he desats dramatically whenever we attempt to take off the nasal cannula and mask. We will continue with IV antibiotic. Continue with dexamethasone. Continue with IV fluid. I have spoken with his son and made it very clear that his prognosis is very poor and my recommendation was for him to go on hospice. I also explained to him that 2 of his family members can come and evaluate him to see how bad he is doing and to decide about hospice and if they did decide to make the decision to make him to go hospice care, then his family member can come and see him. RIKKI DR: Jomar TID: [id number]
--- NOTE | 2021-05-20 00:34 | NUR ---
Pt daughters arrived to visit with and evaluate pt condition. They were tearful and frustrated but calm and cooperative. They had many questions about the medications and status of pt condition. They made video calls allowing relatives to visit with pt. Pt was not responsive to their conversations; he continued to occasionally resist against restraints and move his legs restlessly. Allowed pt family to express their preferences for his care and their feelings. Pt family thanked us before leaving. wceun pt
[2021-05-20] MEDS: IV DEXTROSE 5% 1,000 ML IV SCH ×2 (00:45→00:47)
[2021-05-20] MEDS: METOPROLOL TARTRATE 5 MG/5 ML VIAL. IV PRN (01:49)
[2021-05-20] MEDS: MORPHINE SULFATE 4 MG/ML DISP.SYRIN. IV PRN ×4 (03:50→18:20)
[2021-05-20 05:00] VITALS: BP 130/92
[2021-05-20] MEDS: PIPERACILLIN/TAZOBACTAM 2.25 GM in IV NORMAL SALINE 50ML 50 ML IV SCH (06:58)
--- NOTE | 2021-05-20 07:28 | NUR ---
Pt moves around in bed and requires repositioning often. Pt yells out "help me" often, despite Ativan and morphine use for comfort. Pt completely disoriented and does not follow commands. Pt resists when turning for bed and brief changes and repositioning. wctm
--- NOTE | 2021-05-20 08:29 | PDOC ---
Exam Note: Brennen Note: This note is a late entry for 05/19/2021 covers elements not covered in my initial note. Subjective: The patient was reviewed on 05/19/2021 with nursing staff, discussed and reviewed the chart and interim history. The patient has had a very difficult day. He has remained on restraints due to his agitation, trying to pull out his IV. He is receiving IV Ativan to help with this. He received morphine at 6.30 p.m. Family are visiting him this evening, quite distraught with his overall condition and the Covid-19 positive diagnosis. Medically he seems more compromised. Review of Systems: Per nursing report no CV, , eye, ENT system symptoms on review. Mental Status Exam: Observed by nursing staff, the patient is oriented to himself. Insight and judgment, recent and remote memory, attention and concentration, fund of knowledge is poor consistent with his diagnoses. Laboratory Data: Reviewed. Impression: Major neurocognitive disorder, Alzheimer, vascular with delusion, depression, behavioral disturbance. Anxiety disorder unspecified. Impulse control disorder unspecified. Plan: No change from initial note. He also received Zyprexa Zydis p.r.n., Ativan p.r.n. and rest unchanged for now. Assessment: Vital Signs/I&O: Vital Signs Date Time Temp Pulse Resp B/P (MAP) Pulse Ox O2 Delivery O2 Flow Rate FiO2 05/20/21 05:00 97.6 105 24 130/92 (105) 95 15L NRB 15L HFNC 30.0 I & O 05/19/21 05/19/21 05/20/21 15:00 23:00 07:00 Intake Total 0 ml 500 ml Balance 0 ml 500 ml Labs: Laboratory Tests Test 05/20/21 06:15 Prothrombin Time 19.6 SEC (9.4-11.4) H Prothrombin Time INR 1.9 (0.9-1.1) H Current Medications: Meds: Laboratory Tests Test 05/20/21 06:15 Prothrombin Time 19.6 SEC Prothromb Time International Ratio 1.9 Current Medications Medications (Trade) Dose Ordered Sig/Mary Route PRN Reason Start Time Stop Time Status Last Admin Dose Admin Dextrose 1,000 ml @ 100 mls/hr Q10H IV 05/12/21 17:00 05/12/21 18:04 DC Ceftriaxone Sodium 1 gm/ Sodium Chloride 50 ml @ 100 mls/hr Q24H IV 05/12/21 20:00 05/12/21 18:04 DC Dexamethasone Sodium Phosphate (Decadron) 12 mg DAILY IV 05/13/21 09:00 05/12/21 18:04 DC Enoxaparin Sodium (Lovenox 30mg Syringe) 30 mg Q24H SQ 05/12/21 17:00 05/12/21 18:25 DC Cephalexin HCl (Keflex) 500 mg TID PO 05/12/21 21:00 05/18/21 15:35 DC 05/18/21 08:59 Azithromycin (Zithromax) 500 mg DAILY PO 05/13/21 09:00 05/19/21 16:56 DC 05/18/21 08:58 Dexamethasone (Decadron) 12 mg DAILYWBKFT PO 05/13/21 08:00 05/19/21 16:56 DC 05/18/21 08:58 Olanzapine (ZyPREXA ZYDIS) 2.5 mg PRN Q2HRS PRN PO PSYCHOSIS 05/12/21 18:15 05/19/21 16:58 DC 05/19/21 07:35 Quetiapine Fumarate (SEROquel) 25 mg BID PO 05/12/21 21:00 05/19/21 16:58 DC 05/18/21 08:59 Dextrose 1,000 ml @ 100 mls/hr Q10H IV 05/12/21 22:45 05/20/21 00:47 Acetaminophen (Tylenol) 650 mg PRN Q6HRS PRN PO MILD PAIN / TEMP > 100.3'F 05/12/21 22:45 05/16/21 20:19 Lactobacillus Rhamnosus (Culturelle) 1 cap BID PO 05/13/21 21:00 05/19/21 16:58 DC 05/18/21 08:59 Allopurinol (Zyloprim) 100 mg BID PO 05/13/21 21:00 05/19/21 16:56 DC 05/18/21 08:58 Aspirin (Aspirin Chewable) 81 mg DAILY PO 05/14/21 09:00 05/19/21 16:56 DC 05/18/21 08:58 Finasteride (Proscar) 5 mg DAILY PO 05/14/21 09:00 05/19/21 16:56 DC 05/18/21 08:59 Levothyroxine Sodium (Synthroid) 75 mcg DAILY06 PO 05/14/21 06:00 05/19/21 16:58 DC 05/18/21 08:59 Mirabegron (Myrbetriq) 25 mg DAILY PO 05/14/21 09:00 05/19/21 16:56 DC 05/17/21 09:20 Pantoprazole Sodium (Protonix) 40 mg DAILY PO 05/14/21 09:00 05/15/21 08:39 DC 05/14/21 08:50 Spironolactone (Aldactone) 25 mg Q48H PO 05/14/21 09:00 05/19/21 16:56 DC 05/17/21 09:19 Atorvastatin Calcium (Lipitor) 80 mg QHS PO 05/13/21 21:00 05/19/21 16:56 DC 05/17/21 20:21 Lisinopril (Prinivil) 40 mg DAILY PO 05/14/21 09:00 05/19/21 16:56 DC 05/18/21 09:00 Cyanocobalamin (Vitamin B-12) 1,000 mcg 1200 PO 05/14/21 12:00 05/19/21 16:56 DC 05/17/21 12:07 Gabapentin (Neurontin) 400 mg TID PO 05/13/21 21:00 05/19/21 16:56 DC 05/18/21 08:59 Multivitamins/ Calcium (Thera-M Plus) 1 tab DAILY PO 05/14/21 09:00 05/19/21 16:58 DC 05/18/21 08:58 Dexamethasone (Maxidex) 1 drop BID OU 05/13/21 21:00 05/19/21 21:00 Multi-Ingredient Ointment (Analgesic [place]) 1 mechelle PRN QID PRN TP MUSCLE PAIN 05/13/21 16:45 Al Hydroxide/Mg Hydroxide (Mylanta Plus Xs) 15 ml PRN AFTMEALHC PRN PO DYSPEPSIA 05/13/21 16:45 Magnesium Hydroxide (Milk Of Magnesia) 2,400 mg PRN QHS PRN PO CONSTIPATION 05/13/21 16:45 Trazodone HCl (Desyrel) 50 mg PRN QHS PRN PO insomnia 05/13/21 16:45 05/17/21 20:20 Nystatin (Nystop) 1 mechelle PRN BID PRN TP TO BILATERAL GROINS 05/13/21 16:45 Sertraline HCl (Zoloft) 25 mg DAILY PO 05/14/21 09:00 05/14/21 21:00 DC 05/14/21 08:53 Sertraline HCl (Zoloft) 50 mg DAILY PO 05/15/21 09:00 05/19/21 16:58 DC 05/18/21 08:59 Warfarin Sodium (Coumadin Per Pharmacy) 1 each PRN DAILY PRN MC SEE COMMENTS 05/13/21 17:00 05/18/21 16:19 Warfarin Sodium (Coumadin) 7.5 mg 1X ONCE PO 05/13/21 17:00 05/13/21 17:01 DC 05/13/21 17:14 Warfarin Sodium (Coumadin) 7.5 mg 1X WARF ONCE PO 05/14/21 16:00 05/14/21 16:01 DC 05/14/21 15:54 Warfarin Sodium (Coumadin) 7.5 mg 1X WARF ONCE PO 05/15/21 16:00 05/15/21 16:02 DC 05/15/21 16:00 Pantoprazole Sodium (Protonix) 40 mg DAILYAC PO 05/16/21 07:30 05/19/21 16:58 DC 05/17/21 09:20 Warfarin Sodium (Coumadin) 5 mg 1X WARF ONCE PO 05/16/21 16:00 05/16/21 16:01 DC 05/16/21 16:19 Neomycin/ Polymyxin/ Bacitracin (Triple Antibiotic Ointment) 1 pkt BID TP 05/16/21 21:00 05/19/21 16:58 DC 05/18/21 20:51 Warfarin Sodium (Coumadin - No Dose Today) 1 each 1X WARF ONCE MC 05/17/21 16:00 05/17/21 16:01 DC Warfarin Sodium (Coumadin) 2.5 mg 1X WARF ONCE PO 05/18/21 16:00 05/18/21 16:01 DC Piperacillin Sod/ Tazobactam Sod 2.25 gm/Sodium Chloride 50 ml @ 100 mls/hr Q8HRS IV 05/18/21 16:00 05/20/21 06:58 Vancomycin HCl (Vanco Per Pharmacy) 1 each PRN DAILY PRN MC SEE COMMENTS 05/18/21 15:15 05/18/21 16:12 Vancomycin HCl 2 gm/Sodium Chloride 500 ml @ 250 mls/hr 1X ONCE IV 05/18/21 16:00 05/18/21 17:59 DC 05/18/21 16:00 Vancomycin HCl 1.5 gm/Sodium Chloride 500 ml @ 250 mls/hr Q24H IV 05/19/21 16:00 05/19/21 17:44 Vancomycin HCl (Vancomycin Trough Level) 1 each 1X ONCE MC 05/20/21 15:30 05/20/21 15:31 Lorazepam (Ativan Inj) 0.25 mg PRN Q8HRS PRN IVP ANXIETY / AGITATION 05/18/21 17:30 05/19/21 20:23 Albuterol/ Ipratropium (Duoneb) 3 ml RTQID NEB 05/19/21 12:00 05/19/21 16:56 DC 05/19/21 15:40 Morphine Sulfate (Morphine 4mg Syringe) 4 mg PRN Q2HR PRN IV PAIN 05/19/21 10:45 05/20/21 03:50 Warfarin Sodium (Coumadin) 2.5 mg 1X WARF ONCE PO 05/19/21 16:00 05/19/21 16:01 DC Warfarin Sodium (Coumadin) 1 mg 1X WARF ONCE PO 05/19/21 16:00 05/19/21 16:01 DC Dexamethasone Sodium Phosphate (Decadron) 10 mg DAILY IVP 05/19/21 17:00 05/19/21 17:00 Lorazepam (Ativan Inj) 0.5 mg PRN Q4HRS PRN IVP ANXIETY / AGITATION 05/19/21 17:00 05/20/21 00:47 Metoprolol Tartrate (Lopressor Vial) 5 mg PRN Q4HRS PRN IV TACHYCARDIA 05/19/21 19:15 05/20/21 01:49 Magnesium Sulfate 50 ml @ 25 mls/hr PRN 1X PRN IV hypomagnesium 05/19/21 19:30 Current Medications Medications (Trade) Dose Ordered Sig/Mary Route PRN Reason Start Time Stop Time Status Last Admin Dose Admin Vancomycin HCl 1.5 gm/Sodium Chloride 500 ml @ 250 mls/hr Q24H IV 05/19/21 16:00 05/19/21 17:44 Albuterol/ Ipratropium (Duoneb) 3 ml RTQID NEB 05/19/21 12:00 05/19/21 16:56 DC 05/19/21 15:40 Morphine Sulfate (Morphine 4mg Syringe) 4 mg PRN Q2HR PRN IV PAIN 05/19/21 10:45 05/20/21 03:50 Dexamethasone Sodium Phosphate (Decadron) 10 mg DAILY IVP 05/19/21 17:00 05/19/21 17:00 Lorazepam (Ativan Inj) 0.5 mg PRN Q4HRS PRN IVP ANXIETY / AGITATION 05/19/21 17:00 05/20/21 00:47 Metoprolol Tartrate (Lopressor Vial) 5 mg PRN Q4HRS PRN IV TACHYCARDIA 05/19/21 19:15 05/20/21 01:49 I have reviewed the current psychotropics carefully including drug interactions. Risk benefit ratio favors no change other than as noted in my dictated progress note. Diagnosis: Problems: (1) Impulse control disorder, unspecified (2) Anxiety disorder, unspecified (3) Dementia, vascular, with depression (4) Dementia, vascular, with delusions (5) Dementia in Alzheimer's disease with depression (6) Dementia in Alzheimer's disease with delusions (7) Dementia of the Alzheimer's type with early onset with behavioral disturbance (8) Major neurocognitive disorder (9) COVID-19 JAE HERNANDEZ MD May 20, 2021 08:29
[2021-05-20] MEDS: DEXAMETHASONE SOD PHOS 10 MG/ML VIAL. IVP SCH (08:30)
[2021-05-20] MEDS: DEXAMETHASONE 0.1% OPHTH SOLUTION 5ML BOTTLE. OU SCH (09:00)
[2021-05-20 11:13] VITALS: BP 147/83
--- NOTE | 2021-05-20 11:23 | NUR ---
KATY met received call from pt dtr, Araceli, who wanted to let SW know that they all agree to put pt on hospice based off what they saw. KATY noted that the hospital has GIP contract with [facility] and could get the process started. KATY noted that while pt is on hospice the family is able to visit. Araceli reports that she and her sister will visit; however, her other siblings will not as they are not capable of doing so with their own Covid issues and with work. KATY will follow up on this and informed Araceli that [facility] will call them with the process and be able to answer any further questions they may have.
--- NOTE | 2021-05-20 12:50 | NUR ---
SW submitted the referrals for hospice services over to [facility].
[2021-05-20] MEDS ORDERED: MORPHINE SULFATE 20 MG/ML CONC SOLUTION. SL PRN (13:30)
[2021-05-20] MEDS ORDERED: WARFARIN 4 MG TABLET. PO ONE (16:00)
[2021-05-20 16:05] LABS: VANC TR 17.7 mcg/mL (10.0-20.0)
--- NOTE | 2021-05-20 16:43 | NUR ---
Nursing note : During this shift pt family was contacted due to pt decline in condition. Pt family members then voiced consent and wishes for aggressive treatment to be discontinued and pt to be placed on hospice. awaiting signed consents and Hospice evaluation. during this shift pt was increasingly agitated and managed to discontinue IV this nurse as well as two others attempted IV placement. PICC team attempted and achieved IV placement with a 20 gauge 1.75 inch in length in the left forearm and 20gauge 2.25 inch in length in the right forearm.
--- NOTE | 2021-05-20 19:38 | NUR ---
Giorgio nurse processing admission to hospice status. Will discharge and readmit as hospice.
--- NOTE | 2021-05-20 20:14 | PN ---
DATE: 05/20/2021 ATTENDING PHYSICIAN: Dr. Olson. SUBJECTIVE: The patient is poorly responsive. He requires 30 liters of oxygen to maintain saturation around 90%. He is agitated. He is having tachypnea and tachycardia. OBJECTIVE FINDINGS: VITAL SIGNS: Blood pressure this morning is 147/83, temperature 98.1 degrees Fahrenheit, pulse 100, respirations 27 and unlabored. HEENT: Head is without trauma. Pupils are reactive. Sclerae nonicteric. Oropharynx clear. NECK: Supple. No stridor. LUNGS: Shallow respirations with bilateral rhonchi. CARDIOVASCULAR: Showed regular heart tones. ABDOMEN: Soft. No guarding. EXTREMITIES: Without edema. NEUROLOGIC: Profoundly confused. Chest x-ray as noted. ASSESSMENT: 1. An 85-year-old gentleman from the senior behavioral unit with acute hypoxemic respiratory failure. 2. COVID-19 pneumonia, aspiration versus healthcare-associated pneumonia. 3. Hypernatremia due to poor oral intake. 4. Acute on chronic kidney injury. 5. Gastroesophageal reflux disease. 6. Hypertension. 7. Benign prostatic hypertrophy. 8. Profound dementia. PLAN: 1. Continue supportive care. 2. Continue IV antibiotics. 3. Prognosis remains quite guarded. Family is aware, but they are a bit unrealistic. He remains a DNR per advanced directive. MATEO/CAT DR: MATEO/mohinder TID: [id number]
--- NOTE | 2021-05-21 11:55 | DS ---
DATE OF DISCHARGE: 05/20/2021 ATTENDING PHYSICIAN: Dr. Dotson. DATE OF EXPIRATION: 05/20/2021 FINAL DISCHARGE DIAGNOSES: 1. Acute hypoxemic respiratory failure. 2. Bilateral COVID pneumonia. 3. Underlying dementia with agitation. 4. History of coronary artery disease with previous bypass and graft. 5. Hypothyroidism, on replacement. 6. Hypertension. 7. Gastroesophageal reflux disease. 8. History of gout. HISTORY AND PHYSICAL: The patient is an 85-year-old gentleman who has been in the [facility]. He developed fevers. Positive swab for COVID. He had bilateral pneumonia and respiratory failure. He was sent down to the medical floor. He had been a DNR per advanced directives. PHYSICAL EXAMINATION: Please see the dictated note. PERTINENT LABORATORY AND X-RAY STUDIES: On admission, his hemoglobin was 12.4 g/dL, white count 6200. Chemistry panel: Creatinine was 1.4, repeat was up to 2.0 mg%. Sodium 147, potassium 4.2 mEq. BNP was elevated also. COURSE IN THE HOSPITAL: The patient had a progressively downhill course. Supplemental oxygen was added. He was kept comfortable. Antibiotics were administered, but he did not get any better. He was quite agitated requiring morphine and Ativan. Eventually, the family was made aware of the fact that he was actively dying. They elected to go with hospice. Hospice and [facility] were involved. They did start a morphine drip to keep him comfortable. Shortly thereafter, on the early childhood teacher assistant hours of 05/21, the patient succumbed to his disease and quietly in the hospital. Family was notified. TOTAL DISCHARGE TIME: 39 minutes. ADELITA/WILL DR: Dawit TID: [id number] CC: CLAUS BLACKWELL MD
--- NOTE | 2021-05-22 07:55 | PDOC ---
Exam Note: Brennen Note: This note is a late entry for 05/20/2021 covers elements not covered in my initial note. Subjective: The patient was reviewed on 05/20/2021 with [facility] nursing staff, discussed and reviewed the chart and interim history. He pulled out two of his IVs, was being evaluated for hospice care. Review of Systems: Per nursing report no CV, , eye, ENT system symptoms on review. Reliability poor. Mental Status Exam: Observed by nursing staff, the patient is oriented to himself. Insight and judgment, recent and remote memory, attention and concentration, fund of knowledge is poor consistent with his diagnoses. Laboratory Data: Reviewed. Impression: Major neurocognitive disorder, Alzheimer, vascular with delusion, depression, behavioral disturbance. Anxiety disorder unspecified. Impulse control disorder unspecified. Plan: No change from initial note. Assessment: Vital Signs/I&O: Vital Signs Date Time Temp Pulse Resp B/P (MAP) Pulse Ox O2 Delivery O2 Flow Rate FiO2 05/20/21 18:20 85 15.0 05/20/21 16:21 20 NonRebreather Mask 05/20/21 11:13 98.1 100 147/83 (104) Current Medications: Meds: Current Medications Medications (Trade) Dose Ordered Sig/Mary Route PRN Reason Start Time Stop Time Status Last Admin Dose Admin Dextrose 1,000 ml @ 100 mls/hr Q10H IV 05/12/21 17:00 05/12/21 18:04 DC Ceftriaxone Sodium 1 gm/ Sodium Chloride 50 ml @ 100 mls/hr Q24H IV 05/12/21 20:00 05/12/21 18:04 DC Dexamethasone Sodium Phosphate (Decadron) 12 mg DAILY IV 05/13/21 09:00 05/12/21 18:04 DC Enoxaparin Sodium (Lovenox 30mg Syringe) 30 mg Q24H SQ 05/12/21 17:00 05/12/21 18:25 DC Cephalexin HCl (Keflex) 500 mg TID PO 05/12/21 21:00 05/18/21 15:35 DC 05/18/21 08:59 Azithromycin (Zithromax) 500 mg DAILY PO 05/13/21 09:00 05/19/21 16:56 DC 05/18/21 08:58 Dexamethasone (Decadron) 12 mg DAILYWBKFT PO 05/13/21 08:00 05/19/21 16:56 DC 05/18/21 08:58 Olanzapine (ZyPREXA ZYDIS) 2.5 mg PRN Q2HRS PRN PO PSYCHOSIS 05/12/21 18:15 05/19/21 16:58 DC 05/19/21 07:35 Quetiapine Fumarate (SEROquel) 25 mg BID PO 05/12/21 21:00 05/19/21 16:58 DC 05/18/21 08:59 Dextrose 1,000 ml @ 100 mls/hr Q10H IV 05/12/21 22:45 05/20/21 15:46 DC 05/20/21 00:47 Acetaminophen (Tylenol) 650 mg PRN Q6HRS PRN PO MILD PAIN / TEMP > 100.3'F 05/12/21 22:45 05/20/21 15:46 DC 05/16/21 20:19 Lactobacillus Rhamnosus (Culturelle) 1 cap BID PO 05/13/21 21:00 05/19/21 16:58 DC 05/18/21 08:59 Allopurinol (Zyloprim) 100 mg BID PO 05/13/21 21:00 05/19/21 16:56 DC 05/18/21 08:58 Aspirin (Aspirin Chewable) 81 mg DAILY PO 05/14/21 09:00 05/19/21 16:56 DC 05/18/21 08:58 Finasteride (Proscar) 5 mg DAILY PO 05/14/21 09:00 05/19/21 16:56 DC 05/18/21 08:59 Levothyroxine Sodium (Synthroid) 75 mcg DAILY06 PO 05/14/21 06:00 05/19/21 16:58 DC 05/18/21 08:59 Mirabegron (Myrbetriq) 25 mg DAILY PO 05/14/21 09:00 05/19/21 16:56 DC 05/17/21 09:20 Pantoprazole Sodium (Protonix) 40 mg DAILY PO 05/14/21 09:00 05/15/21 08:39 DC 05/14/21 08:50 Spironolactone (Aldactone) 25 mg Q48H PO 05/14/21 09:00 05/19/21 16:56 DC 05/17/21 09:19 Atorvastatin Calcium (Lipitor) 80 mg QHS PO 05/13/21 21:00 05/19/21 16:56 DC 05/17/21 20:21 Lisinopril (Prinivil) 40 mg DAILY PO 05/14/21 09:00 05/19/21 16:56 DC 05/18/21 09:00 Cyanocobalamin (Vitamin B-12) 1,000 mcg 1200 PO 05/14/21 12:00 05/19/21 16:56 DC 05/17/21 12:07 Gabapentin (Neurontin) 400 mg TID PO 05/13/21 21:00 05/19/21 16:56 DC 05/18/21 08:59 Multivitamins/ Calcium (Thera-M Plus) 1 tab DAILY PO 05/14/21 09:00 05/19/21 16:58 DC 05/18/21 08:58 Dexamethasone (Maxidex) 1 drop BID OU 05/13/21 21:00 05/20/21 15:46 DC 05/19/21 21:00 Multi-Ingredient Ointment (Analgesic [place]) 1 mechelle PRN QID PRN TP MUSCLE PAIN 05/13/21 16:45 05/20/21 15:46 DC Al Hydroxide/Mg Hydroxide (Mylanta Plus Xs) 15 ml PRN AFTMEALHC PRN PO DYSPEPSIA 05/13/21 16:45 05/20/21 15:46 DC Magnesium Hydroxide (Milk Of Magnesia) 2,400 mg PRN QHS PRN PO CONSTIPATION 05/13/21 16:45 05/20/21 15:46 DC Trazodone HCl (Desyrel) 50 mg PRN QHS PRN PO insomnia 05/13/21 16:45 05/20/21 15:46 DC 05/17/21 20:20 Nystatin (Nystop) 1 mechelle PRN BID PRN TP TO BILATERAL GROINS 05/13/21 16:45 05/20/21 15:46 DC Sertraline HCl (Zoloft) 25 mg DAILY PO 05/14/21 09:00 05/14/21 21:00 DC 05/14/21 08:53 Sertraline HCl (Zoloft) 50 mg DAILY PO 05/15/21 09:00 05/19/21 16:58 DC 05/18/21 08:59 Warfarin Sodium (Coumadin Per Pharmacy) 1 each PRN DAILY PRN MC SEE COMMENTS 05/13/21 17:00 05/20/21 15:47 DC 05/18/21 16:19 Warfarin Sodium (Coumadin) 7.5 mg 1X ONCE PO 05/13/21 17:00 05/13/21 17:01 DC 05/13/21 17:14 Warfarin Sodium (Coumadin) 7.5 mg 1X WARF ONCE PO 05/14/21 16:00 05/14/21 16:01 DC 05/14/21 15:54 Warfarin Sodium (Coumadin) 7.5 mg 1X WARF ONCE PO 05/15/21 16:00 05/15/21 16:02 DC 05/15/21 16:00 Pantoprazole Sodium (Protonix) 40 mg DAILYAC PO 05/16/21 07:30 05/19/21 16:58 DC 05/17/21 09:20 Warfarin Sodium (Coumadin) 5 mg 1X WARF ONCE PO 05/16/21 16:00 05/16/21 16:01 DC 05/16/21 16:19 Neomycin/ Polymyxin/ Bacitracin (Triple Antibiotic Ointment) 1 pkt BID TP 05/16/21 21:00 05/19/21 16:58 DC 05/18/21 20:51 Warfarin Sodium (Coumadin - No Dose Today) 1 each 1X WARF ONCE MC 05/17/21 16:00 05/17/21 16:01 DC Warfarin Sodium (Coumadin) 2.5 mg 1X WARF ONCE PO 05/18/21 16:00 05/18/21 16:01 DC Piperacillin Sod/ Tazobactam Sod 2.25 gm/Sodium Chloride 50 ml @ 100 mls/hr Q8HRS IV 05/18/21 16:00 05/20/21 15:46 DC 05/20/21 06:58 Vancomycin HCl (Vanco Per Pharmacy) 1 each PRN DAILY PRN MC SEE COMMENTS 05/18/21 15:15 05/20/21 15:47 DC 05/18/21 16:12 Vancomycin HCl 2 gm/Sodium Chloride 500 ml @ 250 mls/hr 1X ONCE IV 05/18/21 16:00 05/18/21 17:59 DC 05/18/21 16:00 Vancomycin HCl 1.5 gm/Sodium Chloride 500 ml @ 250 mls/hr Q24H IV 05/19/21 16:00 05/20/21 15:46 DC 05/19/21 17:44 Vancomycin HCl (Vancomycin Trough Level) 1 each 1X ONCE MC 05/20/21 15:30 05/20/21 15:31 DC Lorazepam (Ativan Inj) 0.25 mg PRN Q8HRS PRN IVP mild-mod ANXIETY / AGITATION 05/18/21 17:30 05/20/21 19:43 DC 05/20/21 18:20 Albuterol/ Ipratropium (Duoneb) 3 ml RTQID NEB 05/19/21 12:00 05/19/21 16:56 DC 05/19/21 15:40 Morphine Sulfate (Morphine 4mg Syringe) 4 mg PRN Q2HR PRN IV PAIN 05/19/21 10:45 05/20/21 19:43 DC 05/20/21 18:20 Warfarin Sodium (Coumadin) 2.5 mg 1X WARF ONCE PO 05/19/21 16:00 05/19/21 16:01 DC Warfarin Sodium (Coumadin) 1 mg 1X WARF ONCE PO 05/19/21 16:00 05/19/21 16:01 DC Dexamethasone Sodium Phosphate (Decadron) 10 mg DAILY IVP 05/19/21 17:00 05/20/21 15:46 DC 05/20/21 08:30 Lorazepam (Ativan Inj) 0.5 mg PRN Q4HRS PRN IVP SEVERE ANXIETY / AGITATION 05/19/21 17:00 05/20/21 19:43 DC 05/20/21 15:52 Metoprolol Tartrate (Lopressor Vial) 5 mg PRN Q4HRS PRN IV TACHYCARDIA 05/19/21 19:15 05/20/21 15:46 DC 05/20/21 01:49 Magnesium Sulfate 50 ml @ 25 mls/hr PRN 1X PRN IV hypomagnesium 05/19/21 19:30 05/20/21 15:46 DC Morphine Sulfate (Roxanol Conc) 10 mg PRN Q4HRS PRN SL PAIN 05/20/21 13:30 05/20/21 19:43 DC Warfarin Sodium (Coumadin) 4 mg 1X WARF ONCE PO 05/20/21 16:00 05/20/21 16:01 DC I have reviewed the current psychotropics carefully including drug interactions. Risk benefit ratio favors no change other than as noted in my dictated progress note. Diagnosis: Problems: (1) Impulse control disorder, unspecified (2) Anxiety disorder, unspecified (3) Dementia, vascular, with depression (4) Dementia, vascular, with delusions (5) Dementia in Alzheimer's disease with depression (6) Dementia in Alzheimer's disease with delusions (7) Dementia of the Alzheimer's type with early onset with behavioral disturbance (8) Major neurocognitive disorder (9) COVID-19 JAE HERNANDEZ MD May 22, 2021 07:55
== END 2021-05-20 19:43 | DRG 177 ==
LOC: 1 SOUTH 15:46
PROVIDERS: ADMIT Hospitalist; ATTEND Hospitalist
PROC: 5A0935A Assistance with Respiratory Ventilation, Less than 24 Consecutive Hours, High Flow/Velocity Cannula (ICD-10-PCS; principal; 2021-05-19)
PROC: 5A0935A Assistance with Respiratory Ventilation, Less than 24 Consecutive Hours, High Flow/Velocity Cannula (ICD-10-PCS; 2021-05-20)
DX: U07.1 COVID-19 (principal); J12.82 Pneumonia due to coronavirus disease 2019; J96.01 Acute respiratory failure with hypoxia; N17.0 Acute kidney failure with tubular necrosis; E87.0 Hyperosmolality and hypernatremia; E87.1 Hypo-osmolality and hyponatremia; F01.51 Vascular dementia, unspecified severity, with behavioral disturbance; F02.81 Dementia in other diseases classified elsewhere, unspecified severity, with behavioral disturbance; I47.2 Ventricular tachycardia; E03.9 Hypothyroidism, unspecified; E78.5 Hyperlipidemia, unspecified; E86.0 Dehydration; F32.A Depression, unspecified; F41.9 Anxiety disorder, unspecified; F63.9 Impulse disorder, unspecified; G30.9 Alzheimer's disease, unspecified; I12.9 Hypertensive chronic kidney disease with stage 1 through stage 4 chronic kidney disease, or unspecified chronic kidney disease; I25.10 Atherosclerotic heart disease of native coronary artery without angina pectoris; I48.91 Unspecified atrial fibrillation; K21.9 Gastro-esophageal reflux disease without esophagitis; M10.9 Gout, unspecified; N18.9 Chronic kidney disease, unspecified; N40.1 Benign prostatic hyperplasia with lower urinary tract symptoms; R33.8 Other retention of urine; Z66 Do not resuscitate; Z78.1 Physical restraint status; Z91.81 History of falling; Z95.1 Presence of aortocoronary bypass graft; Z88.8 Allergy status to other drugs, medicaments and biological substances; Z99.3 Dependence on wheelchair; Z90.49 Acquired absence of other specified parts of digestive tract; Z51.5 Encounter for palliative care
CPT/HCPCS: 36415; 71045; 80048; 80053; 80202; 81001; 82947; 83735; 83880; 85007; 85025; 85027; 85610; 87040; 87086; 87804; 94640; J1100; J2060; J2270; J2543; J3370; J3490; J7040; J8540

== ENCOUNTER 2021-05-20 19:45 | Inpatient (IN) | payer OTHER ==
[2021-05-20 20:28] VITALS: BP 163/90
[2021-05-20] MEDS ORDERED: BISACODYL 10 MG SUPP.RECT PR PRN (21:15)
[2021-05-20] MEDS ORDERED: SCOPOLAMINE 1.5MG PATCH. TD PRN (21:15)
[2021-05-20] MEDS ORDERED: MORPHINE SULFATE 30 MG/30 ML 30 ML IV PRN (21:15)
[2021-05-20] MEDS ORDERED: ACETAMINOPHEN 650 MG SUPP.RECT. PR PRN (21:15)
== END 2021-05-21 02:55 | DRG 177 ==
LOC: 1 SOUTH 19:45
PROVIDERS: ADMIT Hospitalist; ATTEND Hospitalist
DX: U07.1 COVID-19 (principal); J96.01 Acute respiratory failure with hypoxia; F03.90 Unspecified dementia, unspecified severity, without behavioral disturbance, psychotic disturbance, mood disturbance, and anxiety; I25.10 Atherosclerotic heart disease of native coronary artery without angina pectoris; K21.9 Gastro-esophageal reflux disease without esophagitis
CPT/HCPCS: J2060; J2270; Q5005